=== PATIENT | female | born 1935 | race Caucasian/White ===

== ENCOUNTER → 2017-02-20 | Outpatient (CLI) | payer MEDICARE ==
[~2017-02-20] MED LIST: AMOX500T2 PO; ASPI81TA82 PO; CHOL4POW4 PO; CITRTAB7 PO; ESTR1TAB PO; LEVO125T3 PO; MULT1TAB46 PO; SOMA250T PO; SUMA50 PO
[2017-02-20 09:46] LABS: ANION GAP 5 MEQ/L (5-15); AST (GOT) 25 U/L (15-37); BICARBONATE 30.9 MEQ/L (21.0-32.0); BLOOD UREA NITROGEN 19 MG/DL (7-18); CHLORIDE 104 MEQ/L (98-107); GLOMERULAR FILTRATION RATE 51 ML/MIN (>89); GLUCOSE,FASTING 79 MG/DL (74-99); POTASSIUM 4.3 MEQ/L (3.5-5.1); SODIUM (NA) 140 MEQ/L (136-145)
[2017-02-20 09:59] LABS: ALKALINE PHOSPHATASE 83 U/L (45-117); ALT (GPT) 37 U/L (10-53); HDL CHOLESTEROL 54.7 MG/DL (40.0-60.0); LDL CHOLESTEROL 72 MG/DL (0-99); TOTAL BILIRUBIN ADULT 0.7 MG/DL (0.2-1.0)
== END ==
LOC: PLAB 06:38
PROVIDERS: ATTEND Family Medicine
DX: N18.2 Chronic kidney disease, stage 2 (mild) (principal); E03.9 Hypothyroidism, unspecified; E78.1 Pure hyperglyceridemia
CPT/HCPCS: 36415; 80053; 80061; 84443

== ENCOUNTER → 2017-06-16 | Outpatient (CLI) | payer MEDICARE ==
[~2017-06-16] MED LIST changes: +ASPI1TAB57 PO; +CALTCHW5 PO; +CICL0.773 TOPICAL; +ESTR1 PO; +HYDR-3580 PO; +LEVO.125 PO; +PENL8SOL TOPICAL; +SENITAB2 PO; +SUMA100T2 PO; +[UNRECOGNIZED DRUG - CODE] TOPICAL
[2017-06-16 10:12] LABS: HEMATOCRIT 39.5 % (35.0-46.0); HEMOGLOBIN 13.6 GM/DL (11.6-15.3); MEAN CELL VOLUME 88.2 FL (80.0-100.0); MEAN CORPUSCULAR HEMOGLOBIN 30.3 PG (27.0-34.0); MEAN CORPUSCULAR HGB CONC 34.3 % (32.0-36.0); MEAN PLATELET VOLUME 9.8 FL (7.0-11.0); PLATELET COUNT 272 TH/MM3 (150-450); RED BLOOD COUNT 4.48 MIL/MM3 (4.00-5.30); RED CELL DISTRIBUTION WIDTH 16.1 % (11.6-17.2); WHITE BLOOD COUNT 12.7 TH/MM3 (4.0-11.0)
[2017-06-16 10:22] LABS: PROTHROMBIN TIME - PATIENT 10.2 SEC (9.8-11.6)
[2017-06-16 10:49] LABS: CALCIUM 9.1 MG/DL (8.5-10.1); CREATININE 0.94 MG/DL (0.50-1.00)
[2017-06-16 11:47] LABS: BACTERIA, URINE RARE /hpf; BILIRUBIN, URINE NEG (NEG); BLOOD, URINE NEG (NEG); GLUCOSE,URINE NEG (NEG); KETONE, URINE NEG (NEG); NITRITE,URINE NEG (NEG); PH, URINE 6.5 (5.0-8.5); SQUAMOUS EPITHELIAL CELL URINE 1 /hpf (0-5); TRANSITIONAL EPI CELLS, URINE <1 /hpf; URINE LEUKOCYTE ESTERASE NEG (NEG)
[2017-06-16 11:48] LABS: URINE COLOR STRAW (YELLW/STRAW)
--- NOTE | 2017-06-18 08:16 | EKG ---
Date Performed: 06/16/2017 Time Performed: 09:47:04 PTAGE: 81 years EKG: Sinus rhythm WITH FREQUENT SUPRAVENTRICULAR PREMATURE COMPLEXES ABNORMAL RHYTHM ECG PREVIOUS TRACING : 01/15/2008 07.42 Since previous tracing, PACs are new. DOCTOR: Julio Márquez Interpretating Date/Time 06/18/2017 08:15:49
== END ==
LOC: CPRE 08:43
PROVIDERS: ATTEND Orthopaedic Surgery
DX: Z01.812 Encounter for preprocedural laboratory examination (principal); Z01.810 Encounter for preprocedural cardiovascular examination; M79.609 Pain in unspecified limb; M16.12 Unilateral primary osteoarthritis, left hip; I10 Essential (primary) hypertension; R82.99 Other abnormal findings in urine
CPT/HCPCS: 36415; 80048; 81001; 85027; 85610; 85730; 87086; 93005

== ENCOUNTER 2017-06-26 07:14 | Inpatient (IN) | payer MEDICARE ==
[~2017-06-26] VITALS: Ht 167.6 cm; Wt 69.9 kg
[~2017-06-26 07:14] MED LIST changes: -AMOX500T2 PO; -ASPI81TA82 PO; -CITRTAB7 PO; -ESTR1TAB PO; -HYDR-3580 PO; -LEVO125T3 PO; -MULT1TAB46 PO; -SOMA250T PO; -SUMA50 PO
[2017-06-26] MEDS ORDERED: CHLORHEXIDINE GLUCONATE 4% SOLN 120 ML BTL TOPICAL SCH (07:45)
[2017-06-26] MEDS ORDERED: SODIUM CHLORID 0.9% 500 ML IV PRN (07:45)
[2017-06-26] MEDS ORDERED: LACTATED RINGER'S 1000 ML IV PRN (07:45)
[2017-06-26] MEDS ORDERED: CHLORHEXIDINE GLUCONATE 2 % 1 PACK (2 CLOTHS) TOPICAL PRN (07:45)
[2017-06-26] MEDS ORDERED: ceFAZolin 2 GM PREMIX 50 ML IV SCH (07:45)
[2017-06-26] MEDS ORDERED: POVIDONE IODINE 5% (ANTISEPSIS KIT) 4 APPLICATIONS EACH NARE PRN (07:45)
[2017-06-26] MEDS ORDERED: METOPROLOL TARTRATE 25 MG TAB PO PRN (07:45)
[2017-06-26] MEDS ORDERED: SODIUM CHLORIDE 0.9% IV SCH ×2 (09:00→12:00)
[2017-06-26] MEDS ORDERED: EXPAREL PERI-ARTICULAR INJECTION (TOTAL VOL. 60 ML) P-ARTICULR SCH ×2 (09:00)
[2017-06-26] MEDS ORDERED: TRANEXAMIC ACID IV SCH ×2 (09:00→12:00)
[2017-06-26] MEDS ORDERED: GENTAMICIN SULFATE 80 MG/2 ML VIAL ONE (09:08)
[2017-06-26] MEDS ORDERED: ACETAMINOPHEN 1000 MG/100 ML 100 ML IV ONE (09:35)
[2017-06-26] MEDS ORDERED: BUPIVACAINE PF 0.75% DEX-WATER INJ 2 ML AMP ONE (09:36)
[2017-06-26] MEDS ORDERED: PROPOFOL 500 MG/50 ML INJ 100 ML ONE (09:36)
[2017-06-26] MEDS ORDERED: FAMOTIDINE 20 MG/2 ML VIAL ONE (09:36)
--- NOTE | 2017-06-26 09:41 | HHI.FF ---
Face to Face Verification Diagnosis: (1) Status post total left knee replacement Physical Therapy Gait training Hip: Total hip, Protocol: Left, Posterior hip precautions, Progress to weight bearing Canvas Knee Splint: When in bed & 2 pillows btw thighs Left LE Weight Bearing: WB as tolerated Left LE Range of Motion: Active ROM Nursing Nursing: Dressing changes Dressing Changes: Daily dressing change (Do not remove Dermabond Prineo.), Coverderm/Primapore I have seen patient Cecy Mcqueen on 06/26/17. My clinical findings support the need for the requested home health care services because: Ltd mobility - disease progression Limited ability to care for self High risk of falls I certify that my clinical findings support that this patient is homebound because: Post-op weakness Unsteady gait/balance Unsafe to leave home unassisted Keisha Sun MD (Charles) Jun 26, 2017 09:41
[2017-06-26] MEDS ORDERED: ECASA81 PO (09:44)
[2017-06-26] MEDS ORDERED: TRANEXAMIC ACID INJ 0 MG in SODIUM CHLORIDE 0.9% INJ 100 ML IV SCH (09:45)
[2017-06-26] MEDS ORDERED: MAGNESIUM HYDROXIDE SUSP 30 ML CUP PO PRN (09:45)
[2017-06-26] MEDS ORDERED: CICLOPIROX TOPICAL PRN (09:45)
[2017-06-26] MEDS ORDERED: ONDANSETRON HCL 4 MG/2 ML VIAL IVP PRN (09:45)
[2017-06-26] MEDS ORDERED: ACETAMINOPHEN/HYDROcodone 325 MG/7.5 MG TAB PO PRN (09:45)
[2017-06-26] MEDS ORDERED: BISACODYL 10 MG SUPP RECTAL PRN (09:45)
[2017-06-26] MEDS ORDERED: ZOLPIDEM TARTRATE 5 MG TAB PO PRN (09:45)
[2017-06-26] MEDS ORDERED: SUMAtriptan SUCCINATE 50 MG TAB PO PRN (09:45)
[2017-06-26] MEDS ORDERED: cloNIDine HCL 0.1 MG TAB PO PRN ×2 (10:15→16:45)
[2017-06-26] MEDS ORDERED: PROPOFOL 200 MG/20 ML AMP IV ONE (12:00)
[2017-06-26] MEDS ORDERED: ONDANSETRON HCL 4 MG/2 ML VIAL IV ONE (12:00)
[2017-06-26] MEDS ORDERED: LIDOCAINE HCL 1% PF 5 ML SYRINGE OTHER ONE (12:00)
[2017-06-26] MEDS ORDERED: DEXAMETHASONE SOD PHOS 4 MG/ML VIAL IV ONE (12:00)
[2017-06-26] MEDS ORDERED: LACTATED RINGER'S 1000 ML INJ 1,000 ML IV ONE (12:00)
[2017-06-26] MEDS ORDERED: ePHEDrine/NS 25 MG/5 ML SYRINGE IV ONE (12:00)
[2017-06-26] MEDS ORDERED: PHENYLEPH/NS 1000 MCG/10 ML SYR IV ONE (12:00)
[2017-06-26] MEDS ORDERED: HYDR-3580 PO (12:58)
--- NOTE | 2017-06-26 13:09 | PD.OP ---
Operative Report Date of Surgery: Jun 26, 2017 Preoperative Diagnosis: (1) Primary osteoarthritis of left hip Postoperative Diagnosis: (1) Primary osteoarthritis of left hip Procedure: Left total hip arthroplasty using Novato prosthesis. Anesthesia: Spinal with supplemental local with bupivacaine liposomal. Surgeon: Dorian Sun MD Dry Primer Powder Blender(s): Kendra Pillai MD Operation and Findings: Indications and Findings: This 81-year-old woman has 3-4 years of left hip pain that is progressively worsening to the point that her ambulation tolerance is 1/ 4 mile. The hip pain will awaken her at night. She has pain on motion. This has not responded to activity modification, exercise, ambulatory aids, nonsteroidal anti-inflammatories or analgesics. Physical findings showed limited range of motion due to tenderness in the hip. She has an antalgic gait. X-rays show loss of articular cartilage to bone on bone in the depths of the acetabulum with degenerative cysts and osteophytes. Operative findings showed severe arthritis in the left hip with loss of articular cartilage and [id number]-[id number], small cyst and some osteophytes. The prosthesis used as a Novato prosthesis with the acetabulum being a Tritanium cluster shell size 52 mm outer diameter with a 36 mm inner diameter liner of X3 polyethylene with a 0 lip. A single screw was used. The femoral component was an Accolade 2 femoral stem size 4 x 132 with a Biolox Delta femoral head size 36 mm outer diameter with a -5 mm neck length. The patient was brought to the clean air operating suite and a spinal anesthetic was administered. The patient was then positioned into a lateral position with the left hip up on a [employer] lateral positioner. The hip and lower extremity were then prepped with alcohol, Hibiclens and ChloraPrep and draped in the usual manner with the hip draped free. Patient received prophylactic antibiotics preoperatively. The patient also received tranexamic acid preoperatively. An appropriate timeout procedure was carried out. An incision was then made from the midportion of the greater trochanter proximally and posteriorly paralleling the fibers of the gluteus alejandra. The incision was deepened through subcutaneous tissues down to the fascia zuri and gluteus fascia. The gluteus fascia was then split longitudinally in line with its fibers up to the upper portion of the fascia zuri. With wound towels in place, the Charnley retractor was inserted. The sciatic nerve was identified and protected throughout the procedure. Dissection was then carried down to the interval between the gluteus minimus and the piriformis. A retractor was inserted. The piriformis and obturator conjoined tendon was released from the greater trochanter and reflected off the capsule. A capsulotomy was made longitudinally along the femoral neck to the base of the femoral neck and then curved distally along the posterior aspect of the greater trochanter. The hip was then internally rotated. Further release of the external rotators was carried out exposing the hip. The hip was then dislocated. The femoral neck was transected at the appropriate level using the oscillating saw placement of appropriate retractors. The femoral head was then removed. Preparation of the femur was initiated with a box osteotome followed by a curet to identify the medullary canal. Broaching was then initiated with the size 0 broach and went and 1 size increments up to size 4. The broach handle was removed. The femoral neck was then trimmed with a calcar planar. Attention was then directed to the acetabulum. Soft tissues were debrided from the acetabulum. Retractors were placed about the acetabulum. Reaming was then initiated with the 43 millimeter reamer and went in 1 mm increments up to the 51 millimeter diameter reamer. A trial reduction with the 50 to millimeter trial prosthesis was carried out. When this was deemed to be appropriate, the trial prosthesis was removed. The acetabulum was then irrigated and cleaned. The actual prosthesis as noted above was then impacted into place and seated appropriately. Drill holes were then made and sounded. Appropriate sized screws were then inserted to stabilize the acetabulum further. The liner as noted above was then inserted into the acetabular shell and impacted into place. Osteophytes were trimmed from the acetabulum. Local anesthetic was then administered throughout the area of the acetabulum and anterior aspect of the femur. The trial neck was then placed on the broach for the above-noted prosthesis. The femoral head trial was placed onto the femoral neck with the external diameter of the head being 36 millimeters and the neck length being -5 millimeters. A trial reduction was then carried out. The stability, leg length and motion were excellent. There was no pistoning. The trial prosthesis was removed. Re-broaching of the femur was carried out to improve the mobility and stability. The broach was removed. The femoral component was then impacted into the medullary canal of the femur after irrigation and suctioning. When this was appropriately seated a trial reduction was again carried out with the trial prosthesis. Again, there was no pistoning. The leg length was appropriate. The stability and motion were excellent. The trial prosthesis was then removed. After cleaning and drying the trunion of the femoral component, the above-noted femoral head was impacted onto the trunnion. The hip was then reduced. The stability and mobility were again checked along with leg lengths as noted above. The hip was then positioned appropriately and closure commenced after the remainder of the local anesthetic was injected throughout the hip. The external rotators and capsule were then repaired with #1 Vicryl interrupted transosseous sutures with a Krakw technique to reattach the external rotators and capsule to the posterior aspect of the greater trochanter. The capsule itself on the superior aspect was closed with #1 Vicryl interrupted [id number]-to-[id number] sutures. The sciatic nerve was again inspected. The fascia zuri and gluteus fascia were then repaired with #1 Vicryl interrupted [id number]-[id number] sutures. The subcutaneous tissues were closed with 2-0 Vicryl interrupted simple sutures with buried knots. The skin was closed with a continuous subcuticular closure of 4-0 Monocryl. The wound was then approximated with Dermabond Prineo. A dry dressing was applied to the hip. A knee immobilizer was applied to the leg. The patient was then transferred from the operating room to the recovery room in satisfactory condition having tolerated the procedure well. Counts are correct. Specimens: None. Estimated blood loss: 200 mL Keisha Sun MD (Charles) Jun 26, 2017 13:08
[2017-06-26] MEDS ORDERED: DO NOT ADM ANY ANTICOAGULANT DRUGS PRN (13:23)
[2017-06-26] MEDS ORDERED: MORPHINE SULFATE 4 MG/ML INJ IV PUSH PRN (13:30)
[2017-06-26] MEDS ORDERED: Post-op Orders (for Pharmacy) XX ONE (13:30)
[2017-06-26] MEDS ORDERED: MIDAZOLAM HCL 2 MG/2 ML VIAL ONE (13:33)
[2017-06-26] MEDS: LACTATED RINGER'S 1000 ML INJ 1,000 ML IV SCH ×2 (14:00→22:03)
[2017-06-26] MEDS ORDERED: *morphine SULFATE 4 MG/ML PERIprocedure ONLY ONE (14:47)
[2017-06-26] MEDS: KETOROLAC TROMETHAMINE 30 MG/ML (IVP) VIAL IVP SCH ×2 (14:52→20:59)
--- NOTE | 2017-06-26 15:30 | RADRPT ---
EXAM DATE/TIME: 06/26/2017 14:38 [place] COMPARISON: No previous studies available for comparison. INDICATIONS : Post op left hip surgery. MEDICAL HISTORY : None. SURGICAL HISTORY : Left hip replacement. ENCOUNTER: Initial ACUITY: 1 day PAIN SCORE: 0/10 LOCATION: Left hip. FINDINGS: A two view examination of the left hip was performed. Left knee arthroplasty. Postsurgical changes. N o fracture or hardware loosening. The acetabulum is grossly intact. CONCLUSION: Left knee arthroplasty. Bo Conner MD on June 26, 2017 at 15:27 Board Certified Radiologist. This report was verified electronically.
--- NOTE | 2017-06-26 16:39 | PD.CONS ---
HPI Service [facility] Consult Requested By DR GARG Reason for Consult MEDICAL MANAGEMENT Primary Care Physician Katie Vaughan MD Diagnoses: (1) Hypothyroidism (2) Migraine (3) Primary osteoarthritis of left hip History of Present Illness Patient is a 81-year-old female, Who underwent a left total hip arthroplasty by Dr. Garg today for severe left hip osteoarthritis. We have been asked to consult regarding medical management. Patient's past medical history significant for hypothyroidism, migraines, and osteoarthritis. We will follow for any other issues that may arise We will get a.m. labs and follow throughout the admission Review of Systems Constitutional: DENIES: Diaphoretic episodes, Fatigue, Fever, Weight gain, Weight loss, Chills, Dizziness, Change in appetite, Night Sweats Endocrine: DENIES: Abnorml menstrual pattern, Heat/cold intolerance, Polydipsia , Polyuria, Polyphagia Eyes: DENIES: Blurred vision, Diplopia, Eye inflammation, Eye pain, Vision loss , Photosensitivity, Double Vision Ears, nose, mouth, throat: DENIES: Tinnitus, Hearing loss, Vertigo, Nasal discharge, Oral lesions, Throat pain, Hoarseness, Ear Pain, Running Nose, Epistaxis, Sinus Pain, Odynophagia Respiratory: DENIES: Apneas, Cough, Snoring, Wheezing, Hemoptysis, Sputum production, Shortness of breath Cardiovascular: DENIES: Chest pain, Palpitations, Syncope, Dyspnea on Exertion , PND, Lower Extremity Edema, Orthopnea, Claudication Gastrointestinal: DENIES: Abdominal pain, Black stools, Bloody stools, Constipation, Diarrhea, Nausea, Vomiting, Difficulty Swallowing Genitourinary: DENIES: Abnormal vaginal bleeding, Dysmenorrhea, Dyspareunia, Sexual dysfunction, Urinary frequency Musculoskeletal: COMPLAINS OF: Joint pain, Joint Swelling, DENIES: Muscle aches , Stiffness, Back pain, Neck pain Integumentary: DENIES: Abnormal pigmentation, Pruritus, Rash, Nail changes, Breast masses, Breast skin changes, Nipple discharge Hematologic/lymphatic: DENIES: Bruising, Lymphadenopathy Immunologic/allergic: DENIES: Eczema, Urticaria Neurologic: COMPLAINS OF: Abnormal gait, DENIES: Headache, Localized weakness, Paresthesias, Seizures, Speech Problems, Tremor, Poor Balance Psychiatric: DENIES: Anxiety, Confusion, Mood changes, Depression, Hallucinations, Agitation, Suicidal Ideation Except as stated in HPI: all other systems reviewed are Neg Past Family Social History Allergies: Coded Allergies: benzonatate (Verified Allergy, Severe, MIGRAINES, 06/16/17) ciprofloxacin (Unverified Allergy, Severe, GI issues, 06/16/17) dextromethorphan (Verified Allergy, Severe, MIGRAINES, 06/16/17) red (food color) (Verified Allergy, Severe, MIGRAINES, 06/16/17) scopolamine (Verified Allergy, Severe, EDEMA, 06/16/17) adhesive tape (Verified Allergy, Unknown, Skin removed with tape, 06/26/17) cefuroxime (Verified Adverse Reaction, Severe, Diarrhea, 06/16/17) Past Medical History Hypothyroidism Headaches Migraines History of C. difficile toxin colitis Osteoarthritis history of tobacco in the past Past Surgical History Bilateral cataract surgery Tonsillectomy Hysterectomy Colonoscopy with polyps removal Rotator cuff repair bilaterally Reported Medications Reported Meds & Active Scripts Active Hydrocodone-Acetamin 7.5-325 (Hydrocodone/Acetaminophen) 7.5 Mg-325 Mg Tablet 1 Tab PO Q4H PRN Reported [place] (Nail Lacquer) Topical (Ciclopirox (Nail Lacquer) Topical) 8% Soln 1 Applic TOPICAL HS PRN Caltrate 600+D Chew (Calcium Carbonate-Vitamin D Chew) 600-400 Mg-Unit Chew 1 Tab PO DAILY Senior Tabs (Multiple Vitamins W/ Minerals) 0.4 Mg-300 Mcg-250 Mcg Tab 1 Tab PO DAILY Aspirin 81 (Aspirin) 81 Mg Tabdr 81 Mg PO DAILY Sumatriptan (Sumatriptan Succinate) 100 Mg Tab 100 Mg PO ONCE PRN If a satisfactory response has not been obtained at 2 hours, a second dose may be administered Cholestyramine 4 Gm/Pkt Powd 4 Gm PO DAILY 1 packet contains 4 grams of cholestyramine. Estrace (Estradiol) 1 Mg Tab 1 Mg PO DAILY Synthroid (Levothyroxine Sodium) 125 Mcg Tab 125 Mcg PO DAILY Active Ordered Medications Current Medications Lactated Ringer's 1,000 ml @ 30 mls/hr Q24H PRN IV SEE LABEL COMMENTS; Start at 07:45; Stop 06/26/17 at 11:39; Status DC Sodium Chloride 500 ml @ 30 mls/hr [id number] PRN IV SEE LABEL COMMENTS; Start at 07:45; Stop 06/26/17 at 11:39; Status DC Metoprolol Tartrate (Lopressor) 25 mg [employer]OR [employer] PRN PO SEE LABEL COMMENTS; Start 06/26/17 at 07:45; Stop 06/29/17 at 07:44 Povidone Iodine (Betadine 5% Antisepsis Kit) 1 applic [employer] PRN EACH NARE SEE LABEL COMMENTS; Start 06/26/17 at 07:45; Stop 06/29/17 at 07:44 Chlorhexidine Gluconate (Chlorhexidine 2% Cloth) 3 pack [employer] PRN TOPICAL SEE LABEL COMMENTS; Start 06/26/17 at 07:45; Stop 06/29/17 at 07:44 Chlorhexidine Gluconate (Hibiclens 4% Top Soln) 1 applic ONCE TOPICAL ; Start at 07:45; Stop 06/29/17 at 07:44 Cefazolin Sodium/ Dextrose 50 ml @ 100 mls/hr SUPER[employer]OR [employer] METAL[employer]ING IV Last administered on 06/26/17at 10:38; Start 06/26/17 at 07:45; Stop 06/29/17 at 07:44 Tranexamic Acid 699 mg/Sodium Chloride 106.99 ml @ 200 mls/ hr ONCE IV Last administered on 06/26/17at 10:33; Start 06/26/17 at 09:00; Stop 06/26/17 at 15:00 ; Status DC Tranexamic Acid 699 mg/Sodium Chloride 106.99 ml @ 200 mls/ hr ONCE IV Last administered on 06/26/17at 13:51; Start 06/26/17 at 12:00; Stop 06/26/17 at 18:00 Bupivacaine Liposome 20 ml/ Sodium Chloride 60 ml @ 120 mls/hr ONCE P-ARTICULR Last administered on 06/26/17at 10:57; Start 06/26/17 at 09:00; Stop 06/26/17 at 15:00; Status DC Gentamicin Sulfate (Gentamicin Inj) 240 mg STK-MED ONCE .ROUTE Last administered on 06/26/17at 10:57; Start 06/26/17 at 09:08; Stop 06/26/17 at 09:09 ; Status DC Lactated Ringer's 1,000 ml @ 80 mls/hr [id number] IV Last administered on at 14:00; Start 06/26/17 at 09:33 Cefazolin Sodium 1000 mg/Sodium Chloride 100 ml @ 200 mls/hr Q6H IV ; Start at 17:00; Stop 06/27/17 at 05:29 Miscellaneous Information (Post-op Orders (for Pharmacy)) STAT ONCE XX ; Start 06/26/17 at 13:30; Stop 06/26/17 at 13:31; Status DC Morphine Sulfate (Morphine Inj) 4 mg Q3H PRN IV PUSH BREAKTHROUGH PAIN; Start 06/26/17 at 13:30 Acetaminophen/ Hydrocodone Bitart ([place] 7.5-325 Mg) 1 tab Q4H PRN PO PAIN LESS THAN 5 ON SCALE; Start 06/26/17 at 09:45 Acetaminophen/ Hydrocodone Bitart ([place] 7.5-325 Mg) 2 tab Q4H PRN PO PAIN SCALE 5 TO 10; Start 06/26/17 at 09:45 Ketorolac Tromethamine (Toradol Inj) 15 mg Q6H IVP Last administered on at 14:52; Start 06/26/17 at 14:00; Stop 06/28/17 at 08:01 Tranexamic Acid / Sodium Chloride 100 ml @ 200 mls/hr UNSCH IV ; Start at 09:45; Stop 06/26/17 at 11:52; Status DC Ondansetron HCl (Zofran Inj) 4 mg Q6H PRN IVP NAUSEA OR VOMITING; Start at 09:45 Zolpidem Tartrate (Ambien) 5 mg HS PRN PO SLEEP; Start 06/26/17 at 09:45 Bisacodyl (Dulcolax Supp) 10 mg DAILY PRN RECTAL SEVERE CONSTIPATION; Start at 09:45 Magnesium Hydroxide (Milk Of Magnesia Liq) 30 ml DAILY PRN PO MILD TO MODERATE CONSTIPATION; Start 06/26/17 at 09:45 Aspirin (Ecotrin Ec) 81 mg BID PO ; Start 06/27/17 at 12:30 Acetaminophen 100 ml @ As Directed STK-MED ONCE IV ; Start 06/26/17 at 09:35; Stop 06/26/17 at 09:36; Status DC Propofol 100 ml @ As Directed STK-MED ONCE .ROUTE ; Start 06/26/17 at 09:36; Stop 06/26/17 at 09:37; Status DC Bupivacaine HCl/ Dextrose (Marcaine Spinal Inj) 2 ml STK-MED ONCE .ROUTE ; Start 06/26/17 at 09:36; Stop 06/26/17 at 09:37; Status DC Famotidine (Pepcid Inj) 20 mg STK-MED ONCE .ROUTE ; Start 06/26/17 at 09:36; Stop 06/26/17 at 09:37; Status DC Cholestyramine Resin (Questran 4 Gm Pkt) 4 gm DAILY PO ; Start 06/27/17 at 09:00 Estradiol (Estradiol) 1 mg DAILY PO ; Start 06/27/17 at 09:00 Levothyroxine Sodium (Synthroid) 125 mcg DAILY@0600 PO ; Start 06/27/17 at 06:00 Sumatriptan Succinate (Imitrex) 100 mg ONCE PRN PO MIGRAINE HEADACHE; Start at 09:45; Stop 06/30/17 at 09:44 Calcium/Vitamin D (Oscal-D 250-125) 500 mg DAILY PO ; Start 06/27/17 at 09:00 Non-Formulary Medication 1 applic HS PRN TOPICAL FUN; Start 06/26/17 at 09:45; Stop 06/26/17 at 13:22; Status DC Multivitamins/ Minerals Therapeutic (Theragran M Tab) 1 tab DAILY PO ; Start at 09:00 Clonidine (Catapres) 0.1 mg Q4H PRN PO SBP>160, DBP>90; Start 06/26/17 at 10:15 Midazolam HCl (Versed Inj) 2 mg STK-MED ONCE .ROUTE ; Start 06/26/17 at 13:33; Stop 06/26/17 at 13:34; Status DC Fentanyl Citrate (fentaNYL INJ) 100 mcg STK-MED ONCE .ROUTE ; Start 06/26/17 at 13:33; Stop 06/26/17 at 13:34; Status DC Miscellaneous Information ALL NURSING DEPARTME... UNSCH PRN .XX SEE LABEL COMMENTS; Start 06/26/17 at 13:23; Stop 06/27/17 at 13:22 Morphine Sulfate (*morphine INJ PERIprocedure ONLY) 4 mg STK-MED ONCE .ROUTE Last administered on 06/26/17at 14:47; Start 06/26/17 at 14:47; Stop 06/26/17 at 14:48; Status DC Family History Hypertension and thyroid disorders Social History Denies any tobacco currently denies any illicits denies any alcohol Physical Exam Vital Signs Vital Signs Date Time Temp Pulse Resp B/P (MAP) Pulse Ox O2 Delivery O2 Flow Rate FiO2 06/26/17 14:52 15 06/26/17 13:23 96.2 96 12 122/57 (78) 100 Nasal Cannula 4 06/26/17 08:00 98.1 95 16 152/83 (106) 98 Physical Exam GENERAL: This is a well-nourished, well-developed patient, in no apparent distress. SKIN: No rashes, ecchymoses or lesions. Cool and dry. HEAD: Atraumatic. Normocephalic. No temporal or scalp tenderness. EYES: Pupils equal round and reactive. Extraocular motions intact. No scleral icterus. No injection or drainage. ENT: Nose without bleeding, purulent drainage or septal hematoma. Throat without erythema, tonsillar hypertrophy or exudate. Uvula midline. Airway patent. NECK: Trachea midline. No JVD or lymphadenopathy. Supple, nontender, no meningeal signs. CARDIOVASCULAR: Regular rate and rhythm without murmurs, gallops, or rubs. S1- S2 no S3 or S4 RESPIRATORY: Clear to auscultation. Breath sounds equal bilaterally. No wheezes , rales, or rhonchi. GASTROINTESTINAL: Abdomen soft, non-tender, nondistended. No hepato-splenomegaly , or palpable masses. No guarding. MUSCULOSKELETAL: Extremities without clubbing, cyanosis, or edema. No joint tenderness, effusion, or edema noted. No calf tenderness. Negative Homans sign bilaterally. Left hip is dressed NEUROLOGICAL: Awake and alert. Cranial nerves II through XII intact. Motor and sensory grossly within normal limits. Five out of 5 muscle strength in all muscle groups. Normal speech. Insight and judgment is good Mood and behavior is appropriate Imaging Last Impressions Hip X-Ray 06/26/17 0933 Signed Impressions: Service Date/Time: Monday, June 26, 2017 14:38 - CONCLUSION: Left knee arthroplasty. Bo Conner MD Assessment and Plan Problem List: (1) Primary osteoarthritis of left hip ICD Code: M16.12 - Unilateral primary osteoarthritis, left hip (2) Hypothyroidism ICD Code: E03.9 - Hypothyroidism Status: Acute (3) Migraine ICD Code: G43.909 - Migraine Status: Acute Assessment and Plan Status post left total hip arthroplasty due to severe osteoarthritis will defer to orthopedic surgery for pain control and anticoagulation Hypothyroidism resume home medication Migraines as needed medications Osteoarthritis pain control as needed Gait instability physical therapy and occupational Hypertension continue on home meds as needed and as needed's DVT prophylaxis per orthopedic GI prophylaxis with Pepcid Code Status Full code Discussed Condition With RN and patient and family and physical therapy Good Toure DO Jun 26, 2017 16:39
[2017-06-26 20:00] VITALS: BP 142/81; PULSE 99; RESP 16; TEMP 97.6; O2SAT 98
[2017-06-27] VITALS (7 sets, daily range): BP systolic 106–140; BP diastolic 55–62; PULSE 84–98; RESP 16–18; TEMP 97.4–98; O2SAT 96–99
[2017-06-27] MEDS: KETOROLAC TROMETHAMINE 30 MG/ML (IVP) VIAL IVP SCH ×4 (02:21→20:49)
[2017-06-27] MEDS: LEVOTHYROXINE SODIUM 125 MCG TAB PO SCH (04:59)
--- NOTE | 2017-06-27 05:56 | PD.ORT.PN ---
Subjective Post Op Day #: 1 Subjective Remarks She is doing well. She has minimal complaints related to her hip at this time. She was up to the bathroom last night and had no problems getting to or from. Distance Walked 8 feet with PT. Objective Vitals Vital Signs Date Time Temp Pulse Resp B/P (MAP) Pulse Ox O2 Delivery O2 Flow Rate FiO2 06/27/17 04:22 97.4 84 17 122/60 (80) 96 06/27/17 03:06 18 06/27/17 03:06 18 06/27/17 00:12 97.6 88 18 126/60 (82) 96 06/26/17 21:48 Room Air 06/26/17 20:00 97.6 99 16 142/81 (101) 98 06/26/17 18:43 18 06/26/17 15:50 97.7 75 16 115/68 (84) 96 Room Air 06/26/17 15:45 70 16 120/65 (83) 96 Room Air 06/26/17 15:30 72 16 117/60 (79) 95 Room Air 06/26/17 15:15 74 15 115/63 (80) 95 Room Air 06/26/17 15:00 73 15 118/59 (78) 94 Room Air 06/26/17 14:52 15 06/26/17 14:45 72 15 116/55 (75) 94 Room Air 06/26/17 14:30 97.5 74 15 119/58 (78) 100 Nasal Cannula 2 06/26/17 14:15 78 15 122/60 (80) 99 Nasal Cannula 2 06/26/17 14:00 87 15 121/58 (79) 98 Nasal Cannula 2 06/26/17 13:45 96.9 88 15 120/59 (79) 97 Nasal Cannula 2 06/26/17 13:30 90 14 117/58 (77) 100 Nasal Cannula 3 06/26/17 13:23 96.2 96 12 122/57 (78) 100 Nasal Cannula 4 06/26/17 13:23 96.2 06/26/17 08:00 98.1 95 16 152/83 (106) 98 I/O 06/26/17 06/26/17 06/26/17 06/27/17 06/27/17 06/27/17 07:00 15:00 23:00 07:00 15:00 23:00 Intake Total 2406.99 ml 420 ml Output Total 200 ml Balance 2206.99 ml 420 ml Intake IV Total 2406.99 ml 420 ml Output Estimated Blood Loss 200 ml # Voids 1 0 Imaging Last 24 hours Impressions Hip X-Ray 06/26/17 0933 Signed Impressions: Service Date/Time: Monday, June 26, 2017 14:38 - CONCLUSION: Left knee arthroplasty. Bo Conner MD Objective Remarks She is resting comfortably, supine in bed. The neurovascular status is intact. The dressing is dry and intact. Assessment & Plan Ortho Post Op Day #: 1 Problem List: (1) Primary osteoarthritis of left hip ICD Codes: M16.12 - Unilateral primary osteoarthritis, left hip Status: Resolved (2) Status post total left knee replacement ICD Codes: Z96.652 - Presence of left artificial knee joint Status: Acute Plan: Continue postop care and PT. Assessment and Plan Condition: Good. Orthopedically stable. DVT prophylaxis: TEDs, aspirin, sequentials. Discharge plans: Home with home health care. An appointment was scheduled through the office. Prescriptions: [place] 7.5/325 Keisha Sun MD (Charles) Jun 27, 2017 05:56
--- NOTE | 2017-06-27 06:21 | HHI.DS ---
Discharge Summary Admission Date Jun 26, 2017 at 07:14 Discharge Date: Jun 28, 2017 Admitting Diagnosis Primary osteoarthritis, left hip. Diagnosis: (1) Primary osteoarthritis of left hip Diagnosis: Principal ICD Codes: M16.12 - Unilateral primary osteoarthritis, left hip Status: Resolved (2) Status post total left knee replacement Diagnosis: Principal ICD Codes: Z96.652 - Presence of left artificial knee joint Status: Acute Procedures Left total hip arthroplasty with a [place] prosthesis on 06/26/2017 Brief History This is a 81 year old female patient has had long-standing arthritis in her left hip which has been nonresponsive to conservative measures. She had an antalgic gait and tenderness on motion. X-ray showed severe osteoarthritis in the hip. Imaging Last 72 hours Impressions Hip X-Ray 06/26/17 0933 Signed Impressions: Service Date/Time: Monday, June 26, 2017 14:38 - CONCLUSION: Left knee arthroplasty. Bo Conner MD PE at Discharge She is out of bed walking in the room with a walker. Her gait pattern is appropriate. She transfers to the chair appropriately. The neurovascular status is intact. The dressing is dry and intact. Hospital Course The patient was admitted as noted above. The above noted operative procedure was carried out that day. Preoperatively prophylactic antibiotics were administered Ancef according to protocol. These were continued postoperatively. The patient also received tranexamic acid to help with hemostasis according to protocol. In the postanesthesia care unit mechanical methods of DVT prophylaxis in the form of CRISTIAN stockings and sequentials were initiated. Physical therapy was initiated on the day of surgery. She walked 8 feet. On postoperative day #1 physical therapy continued. She walked 25 feet. DVT prophylaxis with aspirin 81 mg twice daily was initiated at this time. The patient continued physical therapy throughout the hospitalization. The distance walked and range of motion improved throughout the hospitalization. The patient was discharged on postoperative day 1 with the disposition being to home with home health care. An appointment for follow-up was made prior to admission. Pt Condition on Discharge: Good Discharge Disposition: Disch w/ Home Health Serv Discharge Instructions Diet Instructions: As Tolerated, No Restrictions Activities You Can Perform: Full Weight Bearing, Shower Only-No Bath Activities to Avoid: Lifting/Bending, Strenuous Activity, Bathing, Driving Follow up Referrals: Orthopedics with Keisha Sun MD ([place]) New Medications: Aspirin (Aspirin DR) 81 Mg Tabdr 81 MG PO BID for Prevent Blood Clot for 30 Days, #60 TAB Hydrocodone/Acetaminophen (Hydrocodone-Acetamin 7.5-325) 7.5 Mg-325 Mg Tablet 1 TAB PO Q4H PRN for PAIN SCALE 1 TO 10, #30 TAB Continued Medications: Calcium Carbonate-Vitamin D Chew (Caltrate 600+D Chew) 600-400 Mg-Unit Chew 1 TAB PO DAILY for Nutritional Supplement, EA 0 Refills Cholestyramine (Cholestyramine) 4 Gm/Pkt Powd 4 GM PO DAILY for Dyslipidemia, #1 BOX 0 Refills 1 packet contains 4 grams of cholestyramine. Ciclopirox (Nail Lacquer) Topical ([place] (Nail Lacquer) Topical) 8% Soln 1 APPLIC TOPICAL HS PRN for FUN, #1 BOTTLE 0 Refills Estradiol (Estrace) 1 Mg Tab 1 MG PO DAILY for Estrogen Supplements, #30 TAB 0 Refills Levothyroxine (Synthroid) 125 Mcg Tab 125 MCG PO DAILY for Thyroid, #30 TAB 0 Refills Multiple Vitamins W/ Minerals (Senior Tabs) 0.4 Mg-300 Mcg-250 Mcg Tab 1 TAB PO DAILY Sumatriptan (Sumatriptan) 100 Mg Tab 100 MG PO ONCE PRN for MIGRAINE HEADACHE, TAB 0 Refills If a satisfactory response has not been obtained at 2 hours, a second dose may be administered Discontinued Medications: Aspirin (Aspirin 81) 81 Mg Tabdr 81 MG PO DAILY, TAB 0 Refills Keisha Sun MD ([place]) Jun 27, 2017 06:21
[2017-06-27 07:07] LABS: BASOPHIL # 0.1 TH/MM3 (0-0.2); BASOPHIL % 0.3 % (0.0-2.0); EOSINOPHIL # 0.1 TH/MM3 (0-0.4); EOSINOPHIL % 0.5 % (0.0-4.0); HEMATOCRIT 33.1 % (35.0-46.0); HEMOGLOBIN 11.5 GM/DL (11.6-15.3); LYMPH % 8.8 % (9.0-44.0); LYMPHOCYTE # 1.9 TH/MM3 (1.0-4.8); MEAN CELL VOLUME 88.6 FL (80.0-100.0); MEAN CORPUSCULAR HEMOGLOBIN 30.7 PG (27.0-34.0); MEAN CORPUSCULAR HGB CONC 34.7 % (32.0-36.0); MEAN PLATELET VOLUME 9.9 FL (7.0-11.0); MONO % 9.7 % (0.0-8.0); MONOCYTE # 2.1 TH/MM3 (0-0.9); NEUT % 80.7 % (16.0-70.0); PLATELET COUNT 223 TH/MM3 (150-450); RED BLOOD COUNT 3.74 MIL/MM3 (4.00-5.30); WHITE BLOOD COUNT 21.1 TH/MM3 (4.0-11.0)
[2017-06-27 07:28] LABS: ALBUMIN 3.2 GM/DL (3.4-5.0); ALT (GPT) 34 U/L (10-53); AST (GOT) 30 U/L (15-37); BICARBONATE 28.5 MEQ/L (21.0-32.0); BLOOD UREA NITROGEN 16 MG/DL (7-18); CALCIUM 8.8 MG/DL (8.5-10.1); CHLORIDE 107 MEQ/L (98-107); CREATININE 0.99 MG/DL (0.50-1.00); GLOMERULAR FILTRATION RATE 54 ML/MIN (>89); GLUCOSE,RANDOM 101 MG/DL (74-106); MAGNESIUM 2.2 MG/DL (1.5-2.5); PHOSPHORUS 3.2 MG/DL (2.5-4.9); SODIUM (NA) 141 MEQ/L (136-145)
[2017-06-27 07:37] LABS: ALKALINE PHOSPHATASE 75 U/L (45-117); TOTAL BILIRUBIN ADULT 0.5 MG/DL (0.2-1.0); TOTAL PROTEIN 6.5 GM/DL (6.4-8.2)
[2017-06-27] MEDS: CALCIUM/VITAMIN D 250 MG/125 U TAB PO SCH (08:19)
[2017-06-27] MEDS: ESTRADIOL 1 MG TAB PO SCH (08:19)
[2017-06-27] MEDS: MULTIVITAMINS/MINERALS THERAPEUTIC TAB PO SCH (08:19)
[2017-06-27] MEDS: CHOLESTYRAMINE 4 GM PACKET PO SCH (08:20)
[2017-06-27 08:30] LABS: ACANTHOCYTES OCC (NORMAL)
[2017-06-27] MEDS: LACTATED RINGER'S 1000 ML INJ 1,000 ML IV SCH ×2 (10:33→21:50)
[2017-06-27 10:56] LABS: HEMOGLOBIN A1C 4.9 % (4.3-6.0)
[2017-06-27] MEDS: ACETAMINOPHEN/HYDROcodone 325 MG/7.5 MG TAB PO PRN ×2 (10:59→17:32)
--- NOTE | 2017-06-27 12:24 | HHI.PR ---
Subjective Remarks Patient is a 81-year-old female, Who underwent a left total hip arthroplasty by Dr. Sun today for severe left hip osteoarthritis. We have been asked to consult regarding medical management. Patient's past medical history significant for hypothyroidism, migraines, and osteoarthritis. We will follow for any other issues that may arise We will get a.m. labs and follow throughout the admission 4-17 NEW NEW COMPLAINTS SOME PAIN IN LEFT HIP AREA NO SOB, NO CHEST PAIN NO PALPITATIONS DW RN AND CM AND PATIENT Objective Vitals Vital Signs Date Time Temp Pulse Resp B/P (MAP) Pulse Ox O2 Delivery O2 Flow Rate FiO2 06/27/17 12:01 97.8 92 17 106/57 (73) 97 06/27/17 08:00 97.6 94 16 120/55 (76) 97 06/27/17 04:22 97.4 84 17 122/60 (80) 96 06/27/17 03:06 18 06/27/17 03:06 18 06/27/17 00:12 97.6 88 18 126/60 (82) 96 06/26/17 21:48 Room Air 06/26/17 20:00 97.6 99 16 142/81 (101) 98 06/26/17 18:43 18 06/26/17 15:50 97.7 75 16 115/68 (84) 96 Room Air 06/26/17 15:45 70 16 120/65 (83) 96 Room Air 06/26/17 15:30 72 16 117/60 (79) 95 Room Air 06/26/17 15:15 74 15 115/63 (80) 95 Room Air 06/26/17 15:00 73 15 118/59 (78) 94 Room Air 06/26/17 14:52 15 06/26/17 14:45 72 15 116/55 (75) 94 Room Air 06/26/17 14:30 97.5 74 15 119/58 (78) 100 Nasal Cannula 2 06/26/17 14:15 78 15 122/60 (80) 99 Nasal Cannula 2 06/26/17 14:00 87 15 121/58 (79) 98 Nasal Cannula 2 06/26/17 13:45 96.9 88 15 120/59 (79) 97 Nasal Cannula 2 06/26/17 13:30 90 14 117/58 (77) 100 Nasal Cannula 3 06/26/17 13:23 96.2 96 12 122/57 (78) 100 Nasal Cannula 4 06/26/17 13:23 96.2 I/O 06/26/17 06/26/17 06/26/17 06/27/17 06/27/17 06/27/17 07:00 15:00 23:00 07:00 15:00 23:00 Intake Total 2406.99 ml 420 ml Output Total 200 ml Balance 2206.99 ml 420 ml Intake IV Total 2406.99 ml 420 ml Output Estimated Blood Loss 200 ml # Voids 1 0 Result Diagram: 06/27/17 0636 06/27/17 0636 Other Results Laboratory Tests Test 06/27/17 06:36 White Blood Count 21.1 TH/MM3 Red Blood Count 3.74 MIL/MM3 Hemoglobin 11.5 GM/DL Hematocrit 33.1 % Mean Corpuscular Volume 88.6 FL Mean Corpuscular Hemoglobin 30.7 PG Mean Corpuscular Hemoglobin Concent 34.7 % Red Cell Distribution Width 16.0 % Platelet Count 223 TH/MM3 Mean Platelet Volume 9.9 FL Neutrophils (%) (Auto) 80.7 % Lymphocytes (%) (Auto) 8.8 % Monocytes (%) (Auto) 9.7 % Eosinophils (%) (Auto) 0.5 % Basophils (%) (Auto) 0.3 % Neutrophils # (Auto) 17.0 TH/MM3 Lymphocytes # (Auto) 1.9 TH/MM3 Monocytes # (Auto) 2.1 TH/MM3 Eosinophils # (Auto) 0.1 TH/MM3 Basophils # (Auto) 0.1 TH/MM3 CBC Comment AUTO DIFF Differential Comment AUTO DIFF CONFIRMED Platelet Estimate NORMAL Platelet Morphology Comment ENLARGED Acanthocytes OCC Blood Urea Nitrogen 16 MG/DL Creatinine 0.99 MG/DL Random Glucose 101 MG/DL Total Protein 6.5 GM/DL Albumin 3.2 GM/DL Calcium Level 8.8 MG/DL Phosphorus Level 3.2 MG/DL Magnesium Level 2.2 MG/DL Alkaline Phosphatase 75 U/L Aspartate Amino Transf (AST/SGOT) 30 U/L Alanine Aminotransferase (ALT/SGPT) 34 U/L Total Bilirubin 0.5 MG/DL Sodium Level 141 MEQ/L Potassium Level 4.3 MEQ/L Chloride Level 107 MEQ/L Carbon Dioxide Level 28.5 MEQ/L Anion Gap 6 MEQ/L Estimat Glomerular Filtration Rate 54 ML/MIN Free Thyroxine 1.30 NG/DL Thyroid Stimulating Hormone 3rd Gen 0.743 uIU/ML Imaging Last Impressions Hip X-Ray 06/26/17 0933 Signed Impressions: Service Date/Time: Monday, June 26, 2017 14:38 - CONCLUSION: Left knee arthroplasty. Bo Conner MD Objective Remarks GENERAL: This is a well-nourished, well-developed patient, in no apparent distress. SKIN: No rashes, ecchymoses or lesions. Cool and dry. HEAD: Atraumatic. Normocephalic. No temporal or scalp tenderness. EYES: Pupils equal round and reactive. Extraocular motions intact. No scleral icterus. No injection or drainage. ENT: Nose without bleeding, purulent drainage or septal hematoma. Throat without erythema, tonsillar hypertrophy or exudate. Uvula midline. Airway patent. NECK: Trachea midline. No JVD or lymphadenopathy. Supple, nontender, no meningeal signs. CARDIOVASCULAR: Regular rate and rhythm without murmurs, gallops, or rubs. S1- S2 no S3 or S4 RESPIRATORY: Clear to auscultation. Breath sounds equal bilaterally. No wheezes , rales, or rhonchi. GASTROINTESTINAL: Abdomen soft, non-tender, nondistended. No hepato-splenomegaly , or palpable masses. No guarding. MUSCULOSKELETAL: Extremities without clubbing, cyanosis, or edema. No joint tenderness, effusion, or edema noted. No calf tenderness. Negative Homans sign bilaterally. Left hip is dressed NEUROLOGICAL: Awake and alert. Cranial nerves II through XII intact. Motor and sensory grossly within normal limits. Five out of 5 muscle strength in all muscle groups. Normal speech. Insight and judgment is good Mood and behavior is appropriate Procedures Date of Surgery: Jun 26, 2017 Preoperative Diagnosis: (1) Primary osteoarthritis of left hip Postoperative Diagnosis: (1) Primary osteoarthritis of left hip Procedure: Left total hip arthroplasty using [place] prosthesis. Anesthesia: Spinal with supplemental local with bupivacaine liposomal. Surgeon: Dorian Sun MD Lathe Hand(s): Kendra Pillai MD Operation and Findings: Indications and Findings: This 81-year-old woman has 3-4 years of left hip pain that is progressively worsening to the point that her ambulation tolerance is 1/ 4 mile. The hip pain will awaken her at night. She has pain on motion. This has not responded to activity modification, exercise, ambulatory aids, nonsteroidal anti-inflammatories or analgesics. Physical findings showed limited range of motion due to tenderness in the hip. She has an antalgic gait. X-rays show loss of articular cartilage to bone on bone in the depths of the acetabulum with degenerative cysts and osteophytes. Operative findings showed severe arthritis in the left hip with loss of articular cartilage and [id number], small cyst and some osteophytes. The prosthesis used as a [employer] prosthesis with the acetabulum being a Tritanium cluster shell size 52 mm outer diameter with a 36 mm inner diameter liner of X3 polyethylene with a 0 lip. A single screw was used. The femoral component was an Accolade 2 femoral stem size 4 x 132 with a Biolox Delta femoral head size 36 mm outer diameter with a -5 mm neck length. The patient was brought to the clean air operating suite and a spinal anesthetic was administered. The patient was then positioned into a lateral position with the left hip up on a Postcron lateral positioner. The hip and lower extremity were then prepped with alcohol, Hibiclens and ChloraPrep and draped in the usual manner with the hip draped free. Patient received prophylactic antibiotics preoperatively. The patient also received tranexamic acid preoperatively. An appropriate timeout procedure was carried out. An incision was then made from the midportion of the greater trochanter proximally and posteriorly paralleling the fibers of the gluteus alejandra. The incision was deepened through subcutaneous tissues down to the fascia zuri and gluteus fascia. The gluteus fascia was then split longitudinally in line with its fibers up to the upper portion of the fascia zuri. With wound towels in place, the Charnley retractor was inserted. The sciatic nerve was identified and protected throughout the procedure. Dissection was then carried down to the interval between the gluteus minimus and the piriformis. A retractor was inserted. The piriformis and obturator conjoined tendon was released from the greater trochanter and reflected off the capsule. A capsulotomy was made longitudinally along the femoral neck to the base of the femoral neck and then curved distally along the posterior aspect of the greater trochanter. The hip was then internally rotated. Further release of the external rotators was carried out exposing the hip. The hip was then dislocated. The femoral neck was transected at the appropriate level using the oscillating saw placement of appropriate retractors. The femoral head was then removed. Preparation of the femur was initiated with a box osteotome followed by a curet to identify the medullary canal. Broaching was then initiated with the size 0 broach and went and 1 size increments up to size 4. The broach handle was removed. The femoral neck was then trimmed with a calcar planar. Attention was then directed to the acetabulum. Soft tissues were debrided from the acetabulum. Retractors were placed about the acetabulum. Reaming was then initiated with the 43 millimeter reamer and went in 1 mm increments up to the 51 millimeter diameter reamer. A trial reduction with the 50 to millimeter trial prosthesis was carried out. When this was deemed to be appropriate, the trial prosthesis was removed. The acetabulum was then irrigated and cleaned. The actual prosthesis as noted above was then impacted into place and seated appropriately. Drill holes were then made and sounded. Appropriate sized screws were then inserted to stabilize the acetabulum further. The liner as noted above was then inserted into the acetabular shell and impacted into place. Osteophytes were trimmed from the acetabulum. Local anesthetic was then administered throughout the area of the acetabulum and anterior aspect of the femur. The trial neck was then placed on the broach for the above-noted prosthesis. The femoral head trial was placed onto the femoral neck with the external diameter of the head being 36 millimeters and the neck length being -5 millimeters. A trial reduction was then carried out. The stability, leg length and motion were excellent. There was no pistoning. The trial prosthesis was removed. Re-broaching of the femur was carried out to improve the mobility and stability. The broach was removed. The femoral component was then impacted into the medullary canal of the femur after irrigation and suctioning. When this was appropriately seated a trial reduction was again carried out with the trial prosthesis. Again, there was no pistoning. The leg length was appropriate. The stability and motion were excellent. The trial prosthesis was then removed. After cleaning and drying the trunion of the femoral component, the above-noted femoral head was impacted onto the trunnion. The hip was then reduced. The stability and mobility were again checked along with leg lengths as noted above. The hip was then positioned appropriately and closure commenced after the remainder of the local anesthetic was injected throughout the hip. The external rotators and capsule were then repaired with #1 Vicryl interrupted transosseous sutures with a Krakw technique to reattach the external rotators and capsule to the posterior aspect of the greater trochanter. The capsule itself on the superior aspect was closed with #1 Vicryl interrupted [id number] sutures. The sciatic nerve was again inspected. The fascia zuri and gluteus fascia were then repaired with #1 Vicryl interrupted [id number] sutures. The subcutaneous tissues were closed with 2-0 Vicryl interrupted simple sutures with buried knots. The skin was closed with a continuous subcuticular closure of 4-0 Monocryl. The wound was then approximated with Dermabond Prineo. A dry dressing was applied to the hip. A knee immobilizer was applied to the leg. The patient was then transferred from the operating room to the recovery room in satisfactory condition having tolerated the procedure well. Counts are correct. Specimens: None. Estimated blood loss: 200 mL Keisha Sun MD ([place]) Medications and IVs Current Medications Lactated Ringer's 1,000 ml @ 30 mls/hr Q24H PRN IV SEE LABEL COMMENTS; Start at 07:45; Stop 06/26/17 at 11:39; Status DC Sodium Chloride 500 ml @ 30 mls/hr [id number] PRN IV SEE LABEL COMMENTS; Start at 07:45; Stop 06/26/17 at 11:39; Status DC Metoprolol Tartrate (Lopressor) 25 mg FRUIT AND VEGETABLE PACKER PRN PO SEE LABEL COMMENTS; Start 06/26/17 at 07:45; Stop 06/29/17 at 07:44 Povidone Iodine (Betadine 5% Antisepsis Kit) 1 applic FRUIT AND VEGETABLE PACKER PRN EACH NARE SEE LABEL COMMENTS; Start 06/26/17 at 07:45; Stop 06/29/17 at 07:44 Chlorhexidine Gluconate (Chlorhexidine 2% Cloth) 3 pack FRUIT AND VEGETABLE PACKER PRN TOPICAL SEE LABEL COMMENTS; Start 06/26/17 at 07:45; Stop 06/29/17 at 07:44 Chlorhexidine Gluconate (Hibiclens 4% Top Soln) 1 applic ONCE TOPICAL ; Start at 07:45; Stop 06/29/17 at 07:44 Cefazolin Sodium/ Dextrose 50 ml @ 100 mls/hr FRUIT AND VEGETABLE PACKER IV Last administered on 06/26/17at 10:38; Start 06/26/17 at 07:45; Stop 06/29/17 at 07:44 Tranexamic Acid 699 mg/Sodium Chloride 106.99 ml @ 200 mls/ hr ONCE IV Last administered on 06/26/17at 10:33; Start 06/26/17 at 09:00; Stop 06/26/17 at 15:00 ; Status DC Tranexamic Acid 699 mg/Sodium Chloride 106.99 ml @ 200 mls/ hr ONCE IV Last administered on 06/26/17at 13:51; Start 06/26/17 at 12:00; Stop 06/26/17 at 18:00 ; Status DC Bupivacaine Liposome 20 ml/ Sodium Chloride 60 ml @ 120 mls/hr ONCE P-ARTICULR Last administered on 06/26/17at 10:57; Start 06/26/17 at 09:00; Stop 06/26/17 at 15:00; Status DC Gentamicin Sulfate (Gentamicin Inj) 240 mg STK-MED ONCE .ROUTE Last administered on 06/26/17at 10:57; Start 06/26/17 at 09:08; Stop 06/26/17 at 09:09 ; Status DC Lactated Ringer's 1,000 ml @ 80 mls/hr [id number] IV Last administered on at 14:00; Start 06/26/17 at 09:33 Cefazolin Sodium 1000 mg/Sodium Chloride 100 ml @ 200 mls/hr Q6H IV Last administered on 06/27/17at 04:59; Start 06/26/17 at 17:00; Stop 06/27/17 at 05:29 ; Status DC Miscellaneous Information (Post-op Orders (for Pharmacy)) STAT ONCE XX ; Start 06/26/17 at 13:30; Stop 06/26/17 at 13:31; Status DC Morphine Sulfate (Morphine Inj) 4 mg Q3H PRN IV PUSH BREAKTHROUGH PAIN Last administered on 06/26/17at 18:38; Start 06/26/17 at 13:30 Acetaminophen/ Hydrocodone Bitart ([place] 7.5-325 Mg) 1 tab Q4H PRN PO PAIN LESS THAN 5 ON SCALE Last administered on 06/27/17at 06:56; Start 06/26/17 at 09: 45 Acetaminophen/ Hydrocodone Bitart ([place] 7.5-325 Mg) 2 tab Q4H PRN PO PAIN SCALE 5 TO 10 Last administered on 06/27/17at 10:59; Start 06/26/17 at 09:45 Ketorolac Tromethamine (Toradol Inj) 15 mg Q6H IVP Last administered on at 08:20; Start 06/26/17 at 14:00; Stop 06/28/17 at 08:01 Tranexamic Acid / Sodium Chloride 100 ml @ 200 mls/hr UNSCH IV ; Start at 09:45; Stop 06/26/17 at 11:52; Status DC Ondansetron HCl (Zofran Inj) 4 mg Q6H PRN IVP NAUSEA OR VOMITING Last administered on 06/26/17at 21:31; Start 06/26/17 at 09:45 Zolpidem Tartrate (Ambien) 5 mg HS PRN PO SLEEP; Start 06/26/17 at 09:45 Bisacodyl (Dulcolax Supp) 10 mg DAILY PRN RECTAL SEVERE CONSTIPATION; Start at 09:45 Magnesium Hydroxide (Milk Of Magnesia Liq) 30 ml DAILY PRN PO MILD TO MODERATE CONSTIPATION; Start 06/26/17 at 09:45 Aspirin (Ecotrin Ec) 81 mg BID PO ; Start 06/27/17 at 12:30 Acetaminophen 100 ml @ As Directed STK-MED ONCE IV ; Start 06/26/17 at 09:35; Stop 06/26/17 at 09:36; Status DC Propofol 100 ml @ As Directed STK-MED ONCE .ROUTE ; Start 06/26/17 at 09:36; Stop 06/26/17 at 09:37; Status DC Bupivacaine HCl/ Dextrose (Marcaine Spinal Inj) 2 ml STK-MED ONCE .ROUTE ; Start 06/26/17 at 09:36; Stop 06/26/17 at 09:37; Status DC Famotidine (Pepcid Inj) 20 mg STK-MED ONCE .ROUTE ; Start 06/26/17 at 09:36; Stop 06/26/17 at 09:37; Status DC Cholestyramine Resin (Questran 4 Gm Pkt) 4 gm DAILY PO ; Start 06/27/17 at 09:00 Estradiol (Estradiol) 1 mg DAILY PO Last administered on 06/27/17at 08:19; Start 06/27/17 at 09:00 Levothyroxine Sodium (Synthroid) 125 mcg DAILY@0600 PO Last administered on at 04:59; Start 06/27/17 at 06:00 Sumatriptan Succinate (Imitrex) 100 mg ONCE PRN PO MIGRAINE HEADACHE Last administered on 06/27/17at 02:31; Start 06/26/17 at 09:45; Stop 06/30/17 at 09:44 Calcium/Vitamin D (Oscal-D 250-125) 500 mg DAILY PO Last administered on at 08:19; Start 06/27/17 at 09:00 Non-Formulary Medication 1 applic HS PRN TOPICAL FUN; Start 06/26/17 at 09:45; Stop 06/26/17 at 13:22; Status DC Multivitamins/ Minerals Therapeutic (Theragran M Tab) 1 tab DAILY PO Last administered on 06/27/17at 08:19; Start 06/27/17 at 09:00 Clonidine (Catapres) 0.1 mg Q4H PRN PO SBP>160, DBP>90; Start 06/26/17 at 10:15 Midazolam HCl (Versed Inj) 2 mg STK-MED ONCE .ROUTE ; Start 06/26/17 at 13:33; Stop 06/26/17 at 13:34; Status DC Fentanyl Citrate (fentaNYL INJ) 100 mcg STK-MED ONCE .ROUTE ; Start 06/26/17 at 13:33; Stop 06/26/17 at 13:34; Status DC Miscellaneous Information ALL NURSING DEPARTME... UNSCH PRN .XX SEE LABEL COMMENTS; Start 06/26/17 at 13:23; Stop 06/27/17 at 13:22 Morphine Sulfate (*morphine INJ PERIprocedure ONLY) 4 mg STK-MED ONCE .ROUTE Last administered on 06/26/17at 14:47; Start 06/26/17 at 14:47; Stop 06/26/17 at 14:48; Status DC Clonidine (Catapres) 0.1 mg Q4H PRN PO SBP>160, DBP>90; Start 4/16/18 at 16:45 A/P Problem List: (1) Primary osteoarthritis of left hip ICD Code: M16.12 - Unilateral primary osteoarthritis, left hip Status: Resolved (2) Hypothyroidism ICD Code: E03.9 - Hypothyroidism Status: Acute (3) Migraine ICD Code: G43.909 - Migraine Status: Acute Assessment and Plan Status post left total hip arthroplasty due to severe osteoarthritis will defer to orthopedic surgery for pain control and anticoagulation Hypothyroidism resume home medication Migraines as needed medications Osteoarthritis pain control as needed Gait instability physical therapy and occupational Hypertension continue on home meds as needed and as needed's LEUKOCYTOSIS- CHECK AM LABS DVT prophylaxis per orthopedic GI prophylaxis with Pepcid Discharge Planning PENDING ORTHO CLEARANCE Good Toure DO Jun 27, 2017 12:24
[2017-06-27] MEDS: ASPIRIN EC 81 MG TABEC PO SCH ×2 (12:35→20:49)
[2017-06-27 18:34] LABS: BACTERIA, URINE RARE /hpf; BILIRUBIN, URINE NEG (NEG); BLOOD, URINE NEG (NEG); CALCIUM OXALATE CRYSTALS,URINE MANY /hpf; GLUCOSE,URINE NEG (NEG); HYALINE CAST, URINE 23 /lpf (RARE); KETONE, URINE TRACE mg/dL (NEG); MUCUS URINE MOD /lpf (OCC); NITRITE,URINE NEG (NEG); SQUAMOUS EPITHELIAL CELL URINE 10 /hpf (0-5); URINE COLOR DARK-YELLOW (YELLW/STRAW); URINE LEUKOCYTE ESTERASE NEG (NEG)
[2017-06-28] VITALS: BP 114/54; PULSE 90; RESP 18; TEMP 97.6; O2SAT 96
[2017-06-28] MEDS: KETOROLAC TROMETHAMINE 30 MG/ML (IVP) VIAL IVP SCH ×2 (02:16→08:00)
[2017-06-28] MEDS: LEVOTHYROXINE SODIUM 125 MCG TAB PO SCH (06:12)
--- NOTE | 2017-06-28 07:01 | PD.ORT.PN ---
Subjective Post Op Day #: 2 Subjective Remarks She is doing well. There is some pain but not a great deal. Distance Walked 25 feet with PT. Objective Vitals Vital Signs Date Time Temp Pulse Resp B/P (MAP) Pulse Ox O2 Delivery O2 Flow Rate FiO2 06/28/17 02:53 18 06/28/17 00:00 97.6 90 18 114/54 (74) 96 06/27/17 21:35 Room Air 06/27/17 20:00 98.0 85 18 114/57 (76) 98 06/27/17 18:01 99 21 06/27/17 17:33 97.4 98 16 140/62 (88) 99 06/27/17 12:01 97.8 92 17 106/57 (73) 97 06/27/17 08:00 97.6 94 16 120/55 (76) 97 I/O 06/27/17 06/27/17 06/27/17 06/28/17 06/28/17 06/28/17 07:00 15:00 23:00 07:00 15:00 23:00 Intake Total 700 ml Balance 700 ml Intake Oral 700 ml # Voids 5 Result Diagram: 06/27/17 0636 06/27/17 0636 Imaging Last 24 hours Impressions Hip X-Ray 06/26/17 0933 Signed Impressions: Service Date/Time: Monday, June 26, 2017 14:38 - CONCLUSION: Left knee arthroplasty. Bo Conner MD Procedures Left total hip arthroplasty with a [place] prosthesis on 06/26/2017 Objective Remarks She is out of bed, walking in the room with a walker. Her gait pattern is appropriate. She transferred to a chair appropriately. The neurovascular status is intact. The dressing is dry and intact. Assessment & Plan Ortho Post Op Day #: 2 Problem List: (1) Primary osteoarthritis of left hip ICD Codes: M16.12 - Unilateral primary osteoarthritis, left hip Status: Resolved (2) Status post total left knee replacement ICD Codes: Z96.652 - Presence of left artificial knee joint Status: Acute Plan: Continue postop care and PT. Assessment and Plan Condition: Good. Orthopedically stable. DVT prophylaxis: TEDs, aspirin, sequentials. Discharge plans: Home with home health care. An appointment was scheduled through the office. Prescriptions: [place] 7.5/325 Keisha Sun MD ([place]) Jun 28, 2017 07:01
[2017-06-28 07:54] VITALS: BP 118/57; PULSE 98; RESP 18; TEMP 98.2; O2SAT 98
[2017-06-28] MEDS: CHOLESTYRAMINE 4 GM PACKET PO SCH (09:01)
[2017-06-28] MEDS: CALCIUM/VITAMIN D 250 MG/125 U TAB PO SCH (09:01)
[2017-06-28] MEDS: ESTRADIOL 1 MG TAB PO SCH (09:02)
[2017-06-28] MEDS: ACETAMINOPHEN/HYDROcodone 325 MG/7.5 MG TAB PO PRN (09:02)
[2017-06-28] MEDS: ASPIRIN EC 81 MG TABEC PO SCH (09:02)
[2017-06-28] MEDS: MULTIVITAMINS/MINERALS THERAPEUTIC TAB PO SCH (09:02)
[2017-06-28 09:44] LABS: AUTOMATED NEUTROPHIL # 14.7 TH/MM3 (1.8-7.7); BASOPHIL # 0.1 TH/MM3 (0-0.2); BASOPHIL % 0.7 % (0.0-2.0); EOSINOPHIL # 0.1 TH/MM3 (0-0.4); EOSINOPHIL % 0.7 % (0.0-4.0); HEMATOCRIT 32.8 % (35.0-46.0); HEMOGLOBIN 11.1 GM/DL (11.6-15.3); LYMPH % 9.2 % (9.0-44.0); LYMPHOCYTE # 1.7 TH/MM3 (1.0-4.8); MEAN CELL VOLUME 89.2 FL (80.0-100.0); MEAN CORPUSCULAR HEMOGLOBIN 30.2 PG (27.0-34.0); MEAN CORPUSCULAR HGB CONC 33.8 % (32.0-36.0); MEAN PLATELET VOLUME 9.5 FL (7.0-11.0); MONO % 9.1 % (0.0-8.0); MONOCYTE # 1.7 TH/MM3 (0-0.9); NEUT % 80.3 % (16.0-70.0); PLATELET COUNT 202 TH/MM3 (150-450); RED BLOOD COUNT 3.67 MIL/MM3 (4.00-5.30); RED CELL DISTRIBUTION WIDTH 16.4 % (11.6-17.2); WHITE BLOOD COUNT 18.3 TH/MM3 (4.0-11.0)
[2017-06-28 10:13] LABS: ALBUMIN 3.4 GM/DL (3.4-5.0); AST (GOT) 34 U/L (15-37); BICARBONATE 26.9 MEQ/L (21.0-32.0); BLOOD UREA NITROGEN 22 MG/DL (7-18); CHLORIDE 100 MEQ/L (98-107); CREATININE 1.01 MG/DL (0.50-1.00); GLOMERULAR FILTRATION RATE 53 ML/MIN (>89); GLUCOSE,RANDOM 131 MG/DL (74-106); MAGNESIUM 2.3 MG/DL (1.5-2.5); SODIUM (NA) 135 MEQ/L (136-145)
[2017-06-28 10:18] LABS: ALKALINE PHOSPHATASE 74 U/L (45-117); ALT (GPT) 30 U/L (10-53); PHOSPHORUS 2.9 MG/DL (2.5-4.9); TOTAL BILIRUBIN ADULT 0.5 MG/DL (0.2-1.0); TOTAL PROTEIN 6.9 GM/DL (6.4-8.2)
== END 2017-06-28 10:44 | disposition home health service (06) | DRG 470 ==
LOC: HSDI 07:14 → N06A 16:07
PROVIDERS: ADMIT Orthopaedic Surgery; ATTEND Orthopaedic Surgery
PROC: 0SRB04A Replacement of Left Hip Joint with Ceramic on Polyethylene Synthetic Substitute, Uncemented, Open Approach (ICD-10-PCS; principal; 2017-06-26 10:14)
DX: M16.12 Unilateral primary osteoarthritis, left hip (principal); D72.829 Elevated white blood cell count, unspecified; I10 Essential (primary) hypertension; E03.9 Hypothyroidism, unspecified; G43.909 Migraine, unspecified, not intractable, without status migrainosus; Z96.652 Presence of left artificial knee joint; Z87.891 Personal history of nicotine dependence
CPT/HCPCS: 73502; 80053; 81001; 83036; 83735; 84100; 84439; 84443; 85025; 86850; 86900; 86901; 94150; C1776; J0131; J0690; J1100; J1580; J1885; J2250; J2270; J2370; J2405; J3010; J7120; L1830

== ENCOUNTER 2017-07-01 23:08 | Inpatient (IN) | payer MEDICARE ==
[~2017-07-01] VITALS: Ht 167.6 cm; Wt 69.0 kg
[~2017-07-01 23:08] MED LIST changes: -ASPI1TAB57 PO; -CICL0.773 TOPICAL; +ECASA81 PO; +HYDR-3580 PO; -[UNRECOGNIZED DRUG - CODE] TOPICAL
[2017-07-01] MEDS ORDERED: IOHEXOL 350 MG/ML 10 ML VIAL (for RAD DIAG) IVCONTRAST ONE (23:09)
[2017-07-01 23:26] VITALS: BP 162/71; PULSE 113; RESP 16; O2SAT 98
[2017-07-02] VITALS (8 sets, daily range): BP systolic 108–145; BP diastolic 54–72; PULSE 89–120; RESP 16–22; TEMP 98.2–99.3; O2SAT 96–100
[2017-07-02] MEDS ORDERED: SODIUM CHLOR 0.9% 1000 ML INJ 1,000 ML IV SCH (00:13)
[2017-07-02] MEDS ORDERED: ONDANSETRON HCL 4 MG/2 ML VIAL IVP ONE (00:15)
[2017-07-02] MEDS ORDERED: MORPHINE SULFATE 4 MG/ML INJ IV PUSH ONE (00:15)
[2017-07-02] MEDS ORDERED: PANTOPRAZOLE SODIUM 40 MG VIAL IVP ONE (00:15)
[2017-07-02] MEDS ORDERED: SODIUM CHLORIDE 0.9% FLUSH 10 ML FLUSH IV FLUSH PRN ×2 (00:15→02:45)
--- NOTE | 2017-07-02 00:21 | PD ---
HPI Chief Complaint: Abdominal Pain Time Seen by Provider: 00:01 Travel History International Travel<30 days: No Contact w/Intl Traveler<30days: No Traveled to known affect area: No History of Present Illness HPI 81-year-old female complains of abdominal pain. Patient status post left hip arthroplasty on June 26, 2017. Physician was Dr. Sun. Patient states that she had a bowel movement the day after surgery however none since then. Patient has been taking hydrocodone for pain. Patient states that she started having abdominal pain for the past 5 days. Patient states the pain cramping pain diffuse over the abdomen. Patient denies any pain radiation. Patient denies any fever chills. Patient denies any nausea vomiting. Patient denies any dysuria frequency. Patient denies any vaginal discharge or bleeding. Patient status post hysterectomy in the past. Patient has history hypothyroidism. On a scale of 1-10 the pain is a 7. PFSH Past Medical History Arthritis: Yes Asthma: Yes Autoimmune Disease: No Anxiety: No Depression: No Heart Rhythm Problems: No Cancer: No Cardiovascular Problems: No High Cholesterol: No Chemotherapy: No Chest Pain: No Congestive Heart Failure: No COPD: No Cerebrovascular Accident: No Diabetes: No Diminished Hearing: No Endocrine: Yes Gastrointestinal Disorders: Yes (POLYPS REMOVED FROM COLON 12/03/14, c-diff) GERD: No Genitourinary: No Headaches: Yes Hepatitis: No Hiatal Hernia: No Immune Disorder: No Kidney Stones: No Musculoskeletal: Yes (OA, rotator cuff repaired bilaterally) Neurologic: Yes (MIGRAINES) Psychiatric: No Reproductive: Yes (HYSTERECTOMY IN THE PAST) Respiratory: Yes Immunizations Current: Yes Migraines: Yes Radiation Therapy: No Renal Failure: No Seizures: No Sickle Cell Disease: No Sleep Apnea: No Thyroid Disease: Yes (HYPOTHYROIDISM) Ulcer: No Menopausal: Yes : 2 Para: 2 Past Surgical History Abdominal Surgery: No AICD: No Arteriovenous Shunt: No Body Medical Devices: Pt denies any other implants. Cardiac Surgery: No Ear Surgery: No Endocrine Surgery: No Eye Surgery: Yes (BILATERAL CATARACTS) Genitourinary Surgery: No Gynecologic Surgery: Yes (HYSTERECTOMY) Hysterectomy: Yes Insulin Pump: No Joint Replacement: No Oral Surgery: No Pacemaker: No Thoracic Surgery: No Tonsillectomy: Yes Other Surgery: Yes (bilateral cataract) Social History Alcohol Use: No Tobacco Use: Yes (QUIT 40 YEARS AGO) Substance Use: No Allergies-Medications (Allergen,Severity, Reaction): Coded Allergies: benzonatate (Verified Allergy, Severe, MIGRAINES, 07/01/17) ciprofloxacin (Verified Allergy, Severe, GI issues, 07/01/17) dextromethorphan (Verified Allergy, Severe, MIGRAINES, 07/01/17) red (food color) (Verified Allergy, Severe, MIGRAINES, 07/01/17) scopolamine (Verified Allergy, Severe, EDEMA, 07/01/17) adhesive tape (Verified Allergy, Unknown, Skin removed with tape, 07/01/17) cefuroxime (Verified Adverse Reaction, Severe, Diarrhea, 07/01/17) Reported Meds & Prescriptions Reported Meds & Active Scripts Active Hydrocodone-Acetamin 7.5-325 (Hydrocodone/Acetaminophen) 7.5 Mg-325 Mg Tablet 1 Tab PO Q4H PRN Aspirin DR (Aspirin) 81 Mg Tabdr 81 Mg PO BID 30 Days Reported Penlac (Nail Lacquer) Topical (Ciclopirox (Nail Lacquer) Topical) 8% Soln 1 Applic TOPICAL HS PRN Caltrate 600+D Chew (Calcium Carbonate-Vitamin D Chew) 600-400 Mg-Unit Chew 1 Tab PO DAILY Senior Tabs (Multiple Vitamins W/ Minerals) 0.4 Mg-300 Mcg-250 Mcg Tab 1 Tab PO DAILY Sumatriptan (Sumatriptan Succinate) 100 Mg Tab 100 Mg PO ONCE PRN If a satisfactory response has not been obtained at 2 hours, a second dose may be administered Cholestyramine 4 Gm/Pkt Powd 4 Gm PO DAILY 1 packet contains 4 grams of cholestyramine. Estrace (Estradiol) 1 Mg Tab 1 Mg PO DAILY Synthroid (Levothyroxine Sodium) 125 Mcg Tab 125 Mcg PO DAILY Review of Systems General / Constitutional: No: Fever Eyes: No: Visual changes HENT: No: Headaches Cardiovascular: No: Chest Pain or Discomfort Respiratory: No: Shortness of Breath Gastrointestinal: Positive: Abdominal Pain Genitourinary: No: Dysuria Musculoskeletal: No: Pain Skin: No Rash Neurologic: No: Weakness Psychiatric: No: Depression Endocrine: No: Polydipsia Hematologic/Lymphatic: No: Easy Bruising Physical Exam Narrative GENERAL: Well-nourished, well-developed patient. SKIN: Focused skin assessment warm/dry. HEAD: Normocephalic. EYES: No scleral icterus. No injection or drainage. NECK: Supple, trachea midline. No JVD or lymphadenopathy. CARDIOVASCULAR: Regular rate and rhythm without murmurs, gallops, or rubs. RESPIRATORY: Breath sounds equal bilaterally. No accessory muscle use. GASTROINTESTINAL: Abdomen soft, nondistended. Patient has moderate diffuse tenderness over the abdomen, especially epigastric area. No rebound tenderness. No mass. Hypoactive bowel sounds. MUSCULOSKELETAL: No cyanosis, or edema. Surgical scar with dressing in place left hip. BACK: Nontender without obvious deformity. No CVA tenderness. Neurologic exam normal. Data Data Last Documented VS Vital Signs Date Time Temp Pulse Resp B/P (MAP) Pulse Ox O2 Delivery O2 Flow Rate FiO2 07/02/17 01:33 98.2 120 16 143/64 (90) 98 Nasal Cannula 2.00 Orders Orders Complete Blood Count With Diff (07/02/17 00:13) Comprehensive Metabolic Panel (07/02/17 00:13) Lipase (07/02/17 00:13) Prothrombin Time / Inr (Pt) (07/02/17:13) Act Partial Throm Time (Ptt) (07/02/17 00:13) Urinalysis - C+S If Indicated (07/02/17 00:13) Ct Abd/Pel W Iv Contrast(Rout) (07/02/17:13) Iv Access Insert/Monitor (07/02/17 00:13) Ecg Monitoring (07/02/17 00:13) Oximetry (07/02/17 00:13) Morphine Inj (Morphine Inj) (07/02/17 00:15) Ondansetron Inj (Zofran Inj) (07/02/17 00:15) Pantoprazole Inj (Protonix Inj) (07/02/17 00:15) Sodium Chlor 0.9% 1000 Ml Inj (Ns 1000 M (07/02/17 00:13) Sodium Chloride 0.9% Flush (Ns Flush) (07/02/17 00:15) Iohexol 350 Inj (Omnipaque 350 Inj) (07/01/17 23:09) Labs Laboratory Tests Test 07/02/17 00:33 07/02/17 00:35 Urine Color LIGHT-YELLOW Urine Turbidity CLEAR Urine pH 8.0 Urine Specific [place] 1.007 Urine Protein NEG mg/dL Urine Glucose (UA) NEG mg/dL Urine Ketones NEG mg/dL Urine Occult Blood NEG Urine Nitrite NEG Urine Bilirubin NEG Urine Urobilinogen LESS THAN 2.0 MG/DL Urine Leukocyte Esterase NEG Urine RBC LESS THAN 1 /hpf Urine WBC LESS THAN 1 /hpf Urine Squamous Epithelial Cells 4 /hpf Urine Amorphous Sediment RARE Microscopic Urinalysis Comment CULT NOT INDICATED White Blood Count 26.2 TH/MM3 Red Blood Count 3.57 MIL/MM3 Hemoglobin 10.8 GM/DL Hematocrit 31.4 % Mean Corpuscular Volume 88.0 FL Mean Corpuscular Hemoglobin 30.2 PG Mean Corpuscular Hemoglobin Concent 34.3 % Red Cell Distribution Width 16.6 % Platelet Count 321 TH/MM3 Mean Platelet Volume 10.0 FL Neutrophils (%) (Auto) 87.6 % Lymphocytes (%) (Auto) 3.9 % Monocytes (%) (Auto) 7.3 % Eosinophils (%) (Auto) 0.6 % Basophils (%) (Auto) 0.6 % Neutrophils # (Auto) 23.0 TH/MM3 Lymphocytes # (Auto) 1.0 TH/MM3 Monocytes # (Auto) 1.9 TH/MM3 Eosinophils # (Auto) 0.1 TH/MM3 Basophils # (Auto) 0.2 TH/MM3 CBC Comment DIFF FINAL Differential Comment Prothrombin Time 10.0 SEC Prothromb Time International Ratio 1.0 RATIO Activated Partial Thromboplast Time 28.5 SEC Blood Urea Nitrogen 19 MG/DL Creatinine 0.97 MG/DL Random Glucose 110 MG/DL Total Protein 7.3 GM/DL Albumin 3.1 GM/DL Calcium Level 9.3 MG/DL Alkaline Phosphatase 86 U/L Aspartate Amino Transf (AST/SGOT) 32 U/L Alanine Aminotransferase (ALT/SGPT) 31 U/L Total Bilirubin 0.8 MG/DL Sodium Level 135 MEQ/L Potassium Level 4.2 MEQ/L Chloride Level 98 MEQ/L Carbon Dioxide Level 28.0 MEQ/L Anion Gap 9 MEQ/L Estimat Glomerular Filtration Rate 55 ML/MIN Lipase 133 U/L [facility] Medical Decision Making Medical Screen Exam Complete: Yes Emergency Medical Condition: Yes Medical Record Reviewed: Yes Interpretation(s) 2:04 AM. CBC WBC 26.2. Hemoglobin 10.8 hematocrit 31.4. 87 neutrophil. Sodium 135. BUN 19. GFR 55. UA is negative. 2:[address] scan abdomen pelvis shows duodenitis. Differential Diagnosis Differential diagnosis including gastritis, PUD, pancreatitis, colitis, UTI, pyelonephritis, nephrolithiasis, bowel obstruction, constipation. Narrative Course 81-year-old female with abdominal pain and no bowel movement for the past 5 days. Status post left hip arthroplasty. Normal saline solution 1 25 cc an hour. Morphine 2 mg IV. Zofran 4 mg IV. Protonix 40 mg IV. Diagnosis Primary Impression: Duodenitis Admitting Information Admitting Physician Requests: Admit Earl Euceda MD Jul 02, 2017 00:21
[2017-07-02 01:01] LABS: BASOPHIL # 0.2 TH/MM3 (0-0.2); BASOPHIL % 0.6 % (0.0-2.0); EOSINOPHIL # 0.1 TH/MM3 (0-0.4); EOSINOPHIL % 0.6 % (0.0-4.0); HEMATOCRIT 31.4 % (35.0-46.0); HEMOGLOBIN 10.8 GM/DL (11.6-15.3); LYMPH % 3.9 % (9.0-44.0); MEAN CORPUSCULAR HEMOGLOBIN 30.2 PG (27.0-34.0); MEAN CORPUSCULAR HGB CONC 34.3 % (32.0-36.0); MONO % 7.3 % (0.0-8.0); MONOCYTE # 1.9 TH/MM3 (0-0.9); NEUT % 87.6 % (16.0-70.0); PLATELET COUNT 321 TH/MM3 (150-450); RED BLOOD COUNT 3.57 MIL/MM3 (4.00-5.30); RED CELL DISTRIBUTION WIDTH 16.6 % (11.6-17.2); WHITE BLOOD COUNT 26.2 TH/MM3 (4.0-11.0)
[2017-07-02 01:04] LABS: AMORPHOUS SEDIMENT, URINE RARE; BILIRUBIN, URINE NEG (NEG); BLOOD, URINE NEG (NEG); GLUCOSE,URINE NEG (NEG); KETONE, URINE NEG (NEG); NITRITE,URINE NEG (NEG); SQUAMOUS EPITHELIAL CELL URINE 4 /hpf (0-5); URINE COLOR LIGHT-YELLOW (YELLW/STRAW); URINE LEUKOCYTE ESTERASE NEG (NEG)
[2017-07-02 01:12] LABS: ALBUMIN 3.1 GM/DL (3.4-5.0); ALT (GPT) 31 U/L (10-53); AST (GOT) 32 U/L (15-37); BLOOD UREA NITROGEN 19 MG/DL (7-18); CALCIUM 9.3 MG/DL (8.5-10.1); CHLORIDE 98 MEQ/L (98-107); CREATININE 0.97 MG/DL (0.50-1.00); GLOMERULAR FILTRATION RATE 55 ML/MIN (>89); GLUCOSE,RANDOM 110 MG/DL (74-106); SODIUM (NA) 135 MEQ/L (136-145)
[2017-07-02 01:14] LABS: ALKALINE PHOSPHATASE 86 U/L (45-117); TOTAL BILIRUBIN ADULT 0.8 MG/DL (0.2-1.0); TOTAL PROTEIN 7.3 GM/DL (6.4-8.2)
--- NOTE | 2017-07-02 02:23 | RADRPT ---
EXAM DATE/TIME: 07/02/2017 02:03 [place] COMPARISON: CT ABDOMEN & PELVIS W CONTRAST, December 03, 2014, 23:36. INDICATIONS : Abdomen pain. IV CONTRAST: 80 cc Omnipaque 350 (iohexol) IV ORAL CONTRAST: No oral contrast ingested. RADIATION DOSE: 11.85 CTDIvol (mGy) MEDICAL HISTORY : Asthma SURGICAL HISTORY : Hysterectomy. Left hip replacement ENCOUNTER: Initial ACUITY: 3 days PAIN SCALE: 6/10 LOCATION: Bilateral abdomen TECHNIQUE: Volumetric scanning of the abdomen and pelvis was performed. Using automated exposure control and ad justment of the mA and/or kV according to patient size, radiation dose was kept as low as reasonably achievable to obtain optimal diagnostic quality images. DICOM format image data is available electro nically for review and comparison. FINDINGS: LOWER LUNGS: The visualized lower lungs are clear. LIVER: A 14 mm cyst is seen within segment 3 of the liver. This is stable. The remaining liver is unremarkab le. The gallbladder is nondistended. There is fluid seen adjacent to the gallbladder extending over t o the second portion of the duodenum. There is wall thickening involving the second portion of duoden um. SPLEEN: Normal size without lesion. PANCREAS: There is a 1 cm cyst involving the uncinate process. This is a long-term stable. The pancreas is othe rwise unremarkable. KIDNEYS: Normal in size and shape. There is no mass, stone or hydronephrosis. ADRENAL GLANDS: Within normal limits. VASCULAR: There is no aortic aneurysm. BOWEL/MESENTERY: There is an inflammatory process involving the first and second portions of the duodenum. This extend s laterally towards the gallbladder. The stomach, small bowel, and colon are otherwise unremarkable. There are a few scattered diverticula throughout the colon. ABDOMINAL WALL: Within normal limits. RETROPERITONEUM: There is no lymphadenopathy. BLADDER: No wall thickening or mass. REPRODUCTIVE: Within normal limits. INGUINAL: There is no lymphadenopathy or hernia. MUSCULOSKELETAL: A left hip prosthesis. CONCLUSION: 1. Acute inflammatory process involving the duodenum with secondary extension towards the gallbladder . The gallbladder is not distended. I see no calcified stones. I feel this relates to an acute duoden itis with secondary involvement of the gallbladder as opposed to acute cholecystitis with secondary i nvolvement of the duodenum. 2. Trace amount of free fluid adjacent to the tip of the liver and gallbladder. Kevin Cerda Jr., MD on July 02, 2017 at 2:17 Board Certified Radiologist. This report was verified electronically.
[2017-07-02] MEDS ORDERED: SENNOSIDES 8.6 MG TAB PO PRN (02:45)
[2017-07-02] MEDS ORDERED: METOCLOPRAMIDE HCL 10 MG/2 ML VIAL IV PUSH ONE (02:45)
[2017-07-02] MEDS ORDERED: diphenhydrAMINE HCL 50 MG/ML VIAL IV PUSH ONE (02:45)
[2017-07-02] MEDS ORDERED: ACETAMINOPHEN 325 MG TAB PO PRN (02:45)
[2017-07-02] MEDS ORDERED: BISACODYL 10 MG SUPP RECTAL PRN (02:45)
[2017-07-02] MEDS ORDERED: PIPERACIL-TAZO 3.375 GM PREMIX 50 ML IV ONE (02:45)
[2017-07-02] MEDS ORDERED: LACTULOSE SYRUP 20 GM/30 ML CUP PO PRN (02:45)
[2017-07-02] MEDS: SODIUM CHLOR 0.9% 1000 ML INJ 1,000 ML IV SCH ×3 (03:21→21:57)
--- NOTE | 2017-07-02 04:05 | HHI.HP ---
[facility] Katie Vaughan MD Admission Diagnosis Duodenitis. Status post left hip arthroplasty Diagnoses: (1) Sepsis Diagnosis: Principal (2) Duodenitis Diagnosis: Principal (3) S/P hip replacement Diagnosis: Principal Travel History International Travel<30 Days: No Contact w/Intl Traveler <30 Da: No Traveled to Known Affected Are: No History of Present Illness This is a 81-year-old female with a PMH of Osteoarthritis and Migraine who presented to the ER with complaints of abdominal pain x5 days. Recent admit for Left Hip Replacement by Dr. Sun on 06/26/17, states has been doing well post-op but having c/o abdominal pain, taking pain medication w/ minimal improvement. Notes diffuse abdominal pain, cramping, intermittent, moderate to severe, 8/10, no associated nausea or vomiting. Denies fever or chills. On arrival, BP 162/71, HR 113, O2 sat 98% on RA, Afebrile. WBC 26.2. Chemistry essentially unremarkable. INR 1.0. UA negative for UTI. CT Abdomen/Pelvis with acute inflammatory process involving the duodenum with secondary extension towards gallbladder, no gallbladder distention. S/p Zosyn in ER. Review of Systems Except as stated in HPI: all other systems reviewed are Neg ROS: 14 point review of systems otherwise negative. Past Family Social History Past Medical History PMH: Osteoarthritis and Migraine Past Surgical History PAST SURGICAL HISTORY: Bilateral Cataract Surgery, Hysterectomy, Left Hip Replacement Allergies: Coded Allergies: benzonatate (Verified Allergy, Severe, MIGRAINES, 07/01/17) ciprofloxacin (Verified Allergy, Severe, GI issues, 07/01/17) dextromethorphan (Verified Allergy, Severe, MIGRAINES, 07/01/17) red (food color) (Verified Allergy, Severe, MIGRAINES, 07/01/17) scopolamine (Verified Allergy, Severe, EDEMA, 07/01/17) adhesive tape (Verified Allergy, Unknown, Skin removed with tape, 07/01/17) cefuroxime (Verified Adverse Reaction, Severe, Diarrhea, 07/01/17) Family History PAST FAMILY HISTORY: Reviewed. No h/o DM or CAD Social History PAST SOCIAL HISTORY: Negative for alcohol, tobacco or drugs. Physical Exam Vital Signs Vital Signs Date Time Temp Pulse Resp B/P (MAP) Pulse Ox O2 Delivery O2 Flow Rate FiO2 07/02/17 03:19 120 18 145/66 (92) 99 Nasal Cannula 2.00 07/02/17 01:33 98.2 120 16 143/64 (90) 98 Nasal Cannula 2.00 07/02/17 01:31 96 Room Air 07/01/17 23:26 113 16 162/71 (101) 98 Physical Exam PE: GENERAL: Pleasant elderly white female in no acute distress. HEENT: PERRLA, EOMI. No scleral icterus or conjunctival pallor. No lid lag or facial droop. CARDIOVASCULAR: Regular rate and rhythm. No obvious murmurs to auscultation. No chest tenderness to palpation. RESPIRATORY: No obvious rhonchi or wheezing. Clear to auscultation. Breath sounds equal bilaterally. GASTROINTESTINAL: Abdomen soft, mild generalized tenderness to palpation, nondistended. BS normal. MUSCULOSKELETAL: Extremities without clubbing, cyanosis, or edema. No obvious deformities. Decreased ROM of LLE due to brace NEUROLOGICAL: Awake, alert and oriented x4. No focal neurologic deficits. Moving both upper and lower extremities spontaneously. Laboratory Laboratory Tests Test 07/02/17 00:33 07/02/17 00:35 Urine Color LIGHT-YELLOW Urine Turbidity CLEAR Urine pH 8.0 Urine Specific [place] 1.007 Urine Protein NEG Urine Glucose (UA) NEG Urine Ketones NEG Urine Occult Blood NEG Urine Nitrite NEG Urine Bilirubin NEG Urine Urobilinogen LESS THAN 2.0 Urine Leukocyte Esterase NEG Urine RBC LESS THAN 1 Urine WBC LESS THAN 1 Urine Squamous Epithelial Cells 4 Urine Amorphous Sediment RARE Microscopic Urinalysis Comment CULT NOT INDICATED White Blood Count 26.2 Red Blood Count 3.57 Hemoglobin 10.8 Hematocrit 31.4 Mean Corpuscular Volume 88.0 Mean Corpuscular Hemoglobin 30.2 Mean Corpuscular Hemoglobin Concent 34.3 Red Cell Distribution Width 16.6 Platelet Count 321 Mean Platelet Volume 10.0 Neutrophils (%) (Auto) 87.6 Lymphocytes (%) (Auto) 3.9 Monocytes (%) (Auto) 7.3 Eosinophils (%) (Auto) 0.6 Basophils (%) (Auto) 0.6 Neutrophils # (Auto) 23.0 Lymphocytes # (Auto) 1.0 Monocytes # (Auto) 1.9 Eosinophils # (Auto) 0.1 Basophils # (Auto) 0.2 CBC Comment DIFF FINAL Differential Comment Prothrombin Time 10.0 Prothromb Time International Ratio 1.0 Activated Partial Thromboplast Time 28.5 Blood Urea Nitrogen 19 Creatinine 0.97 Random Glucose 110 Total Protein 7.3 Albumin 3.1 Calcium Level 9.3 Alkaline Phosphatase 86 Aspartate Amino Transf (AST/SGOT) 32 Alanine Aminotransferase (ALT/SGPT) 31 Total Bilirubin 0.8 Sodium Level 135 Potassium Level 4.2 Chloride Level 98 Carbon Dioxide Level 28.0 Anion Gap 9 Estimat Glomerular Filtration Rate 55 Lipase 133 Result Diagram: 07/02/173407/02/1734 Caprini VTE Risk Assessment [place] VTE Risk Assessment: No/Low Risk (score <= 1) Caprini Risk Assessment Model Point Value = 1 Point Value = 2 Point Value = 3 Point Value = 5 Age 41-60 Minor surgery BMI > 25 kg/m2 Swollen legs Varicose veins or History of unexplained or recurrent spontaneous Oral contraceptives or hormone replacement Sepsis (< 1 month) Serious lung disease, including pneumonia (< 1 month) Abnormal pulmonary function Acute myocardial infarction Congestive heart failure (< 1 month) History of inflammatory bowel disease Medical patient at bed rest Age 61-74 Arthroscopic surgery Major open surgery (> 45 min) Laparoscopic surgery (> 45 min) Malignancy Confined to bed (> 72 hours) Immobilizing plaster cast Central venous access Age >= 75 History of VTE Family history of VTE Factor V Leiden Prothrombin [id number] Lupus anticoagulant Anticardiolipin antibodies Elevated serum homocysteine Heparin-induced thrombocytopenia Other congenital or acquired thrombophilia Stroke (< 1 month) Elective arthroplasty Hip, pelvis, or leg fracture Acute spinal cord injury (< 1 month) Prophylaxis Regimen Total Risk Factor Score Risk Level Prophylaxis Regimen 0-1 Low Early ambulation 2 Moderate Order ONE of the following: *Sequential Compression Device (SCD) *Heparin 5000 units SQ BID 3-4 Higher Order ONE of the following medications: *Heparin 5000 units SQ TID *Enoxaparin/Lovenox 40 mg SQ daily (WT < 150 kg, CrCl > 30 mL/min) *Enoxaparin/Lovenox 30 mg SQ daily (WT < 150 kg, CrCl > 10-29 mL/min) *Enoxaparin/Lovenox 30 mg SQ BID (WT < 150 kg, CrCl > 30 mL/min) AND/OR *Sequential Compression Device (SCD) 5 or more Highest Order ONE of the following medications: *Heparin 5000 units SQ TID (Preferred with Epidurals) *Enoxaparin/Lovenox 40 mg SQ daily (WT < 150 kg, CrCl > 30 mL/min) *Enoxaparin/Lovenox 30 mg SQ daily (WT < 150 kg, CrCl > 10-29 mL/min) *Enoxaparin/Lovenox 30 mg SQ BID (WT < 150 kg, CrCl > 30 mL/min) AND *Sequential Compression Device (SCD) Assessment and Plan Problem List: (1) Sepsis ICD Code: A41.9 - Sepsis Status: Acute (2) Duodenitis ICD Code: K29.80 - Duodenitis without bleeding Status: Acute (3) S/P hip replacement ICD Code: Z96.649 - Presence of unspecified artificial hip joint Assessment and Plan A/P: 1. Sepsis: WBC 26, HR 113, Source-Duodenitis, s/p Zosyn in ER, will continue w / IV Abx, follow up cultures. 2. Duodenitis: c/o crampy, abdominal pain, CT Abd/Pelvis w/ acute inflammatory process involving duodenum w/ extension towards gallbladder, unlikely cholecystitis, images reviewed by me. S/p Zosyn, will continue w/ IV Abx, analgesics/antiemetics as needed. 3. S/p Left Hip Replacement: on 06/26/[address] Sun, consult PT for continued therapy. 4. DVT Prophylaxis: Lovenox 5. Social work for dc planning as needed. 6. Case discussed w/ ER physician at length, labs/records/imaging reviewed by me. Physician Certification 2 Midnight Certification Type: Admission for Inpatient Services Order for Inpatient Services The services are ordered in accordance with Medicare regulations or non- Medicare payer requirements, as applicable. In the case of services not specified as inpatient-only, they are appropriately provided as inpatient services in accordance with the 2-midnight benchmark. Estimated LOS (days): 2 days is the estimated time the patient will need to remain in the hospital, assuming treatment plan goals are met and no additional complications. Post-Hospital Plan: Not yet determined Mazal,Edwina MD Jul 02, 2017 04:05
[2017-07-02] MEDS: MORPHINE SULFATE 2 MG/ML SYRINGE IV PUSH PRN ×5 (07:25→20:58)
[2017-07-02] MEDS: DOCUSATE SODIUM 50 MG/SENNA 8.6 MG TAB PO SCH ×2 (08:57→21:00)
[2017-07-02] MEDS: PIPERACIL-TAZO 4.5 GM PREMIX 100 ML IV SCH ×3 (08:57→20:58)
[2017-07-02] MEDS: ENOXAPARIN SODIUM 40 MG/0.4 ML SYRINGE SQ SCH ×2 (08:57→13:35)
[2017-07-02] MEDS: ONDANSETRON HCL 4 MG/2 ML VIAL IVP PRN (15:43)
[2017-07-02] MEDS: MAGNESIUM HYDROXIDE SUSP 30 ML CUP PO PRN (17:27)
[2017-07-02] MEDS: SODIUM CHLORIDE 0.9% FLUSH 10 ML FLUSH IV FLUSH SCH ×2 (17:27→20:59)
[2017-07-03] VITALS: BP 134/63; PULSE 103; RESP 18; TEMP 98.9; O2SAT 100
[2017-07-03] MEDS: MORPHINE SULFATE 2 MG/ML SYRINGE IV PUSH PRN ×3 (02:30→10:31)
[2017-07-03 03:04] LABS: AUTOMATED NEUTROPHIL # 17.1 TH/MM3 (1.8-7.7); BASOPHIL # 0.2 TH/MM3 (0-0.2); BASOPHIL % 0.8 % (0.0-2.0); EOSINOPHIL # 0.3 TH/MM3 (0-0.4); EOSINOPHIL % 1.5 % (0.0-4.0); HEMATOCRIT 26.8 % (35.0-46.0); LYMPH % 9.3 % (9.0-44.0); MEAN CORPUSCULAR HEMOGLOBIN 29.8 PG (27.0-34.0); MEAN CORPUSCULAR HGB CONC 33.5 % (32.0-36.0); MEAN PLATELET VOLUME 9.3 FL (7.0-11.0); MONOCYTE # 1.9 TH/MM3 (0-0.9); NEUT % 79.4 % (16.0-70.0); PLATELET COUNT 328 TH/MM3 (150-450); RED BLOOD COUNT 3.01 MIL/MM3 (4.00-5.30); RED CELL DISTRIBUTION WIDTH 16.4 % (11.6-17.2); WHITE BLOOD COUNT 21.5 TH/MM3 (4.0-11.0)
[2017-07-03 03:44] LABS: ALBUMIN 2.5 GM/DL (3.4-5.0); ALKALINE PHOSPHATASE 79 U/L (45-117); ALT (GPT) 24 U/L (10-53); AST (GOT) 22 U/L (15-37); BICARBONATE 28.8 MEQ/L (21.0-32.0); BLOOD UREA NITROGEN 17 MG/DL (7-18); CALCIUM 8.2 MG/DL (8.5-10.1); CHLORIDE 100 MEQ/L (98-107); CREATININE 1.01 MG/DL (0.50-1.00); GLOMERULAR FILTRATION RATE 53 ML/MIN (>89); GLUCOSE,RANDOM 103 MG/DL (74-106); SODIUM (NA) 137 MEQ/L (136-145); TOTAL BILIRUBIN ADULT 0.8 MG/DL (0.2-1.0); TOTAL PROTEIN 6.1 GM/DL (6.4-8.2)
[2017-07-03 04:00] VITALS: BP 147/64; PULSE 93; RESP 20; TEMP 98.7; O2SAT 99
[2017-07-03] MEDS: PIPERACIL-TAZO 4.5 GM PREMIX 100 ML IV SCH ×2 (04:09→08:51)
[2017-07-03] MEDS: LEVOTHYROXINE SODIUM 125 MCG TAB PO SCH (06:00)
--- NOTE | 2017-07-03 06:51 | PD.CONS ---
HPI Service Orthopedic Surgeons Consult Requested By Reason for Consult Left hip pain. Postop left total hip arthroplasty. Primary Care Physician Katie Vaughan MD Admission Diagnosis Duodenitis. Status post left hip arthroplasty Diagnoses: (1) Sepsis (2) Duodenitis (3) S/P hip replacement Chief Complaint: Postop left total hip arthroplasty. History of Present Illness This 81-year-old woman is now at postoperative day 7 from a total hip arthroplasty performed on 06/26/2017. She did well in the immediate postoperative period and was sent home with home health care through [facility]. She did well regarding her hip but had difficulty with constipation. She became somewhat hypotensive and was brought to the hospital by ambulance. Apparently she was admitted for duodenitis and sepsis according to the chart. Since then, she has had at least 2 bowel movements and is still having some difficulty with her abdomen. Her pain in her hip is still present but not excessively so. She has been up walking with the physical therapist about 20 feet. She has been up with nursing as well to bedside commode and to the chair. Past Family Social History Past Medical History PMH: Osteoarthritis and Migraine Past Surgical History PAST SURGICAL HISTORY: Bilateral Cataract Surgery, Hysterectomy, Left Hip Replacement Allergies: Coded Allergies: benzonatate (Verified Allergy, Severe, MIGRAINES, 07/01/17) ciprofloxacin (Verified Allergy, Severe, GI issues, 07/01/17) dextromethorphan (Verified Allergy, Severe, MIGRAINES, 07/01/17) red (food color) (Verified Allergy, Severe, MIGRAINES, 07/01/17) scopolamine (Verified Allergy, Severe, EDEMA, 07/01/17) adhesive tape (Verified Allergy, Unknown, Skin removed with tape, 07/01/17) cefuroxime (Verified Adverse Reaction, Severe, Diarrhea, 07/01/17) Active Ordered Medications Current Medications Medications (Trade) Dose Ordered Sig/Louie Route Start Time Stop Time Status Last Admin (NS Flush) 2 ml UNSCH PRN IV FLUSH 07/02/17 00:15 Piperacillin Sod/ Tazobactam Sod 100 ml @ 200 mls/hr Q6H IV 4/22/18 09:00 07/03/17 04:09 Sodium Chloride 1,000 ml @ 100 mls/hr Q10H IV 07/02/17 03:00 07/02/17 21:57 (NS Flush) 2 ml UNSCH PRN IV FLUSH 07/02/17 02:45 (NS Flush) 2 ml BID IV FLUSH 07/02/17 09:00 07/02/17 20:59 (Zofran Inj) 4 mg Q6H PRN IVP 07/02/17 02:45 07/02/17 15:43 (Lovenox Inj) 40 mg Q24H SQ 07/02/17 09:00 07/02/17 08:57 (Tylenol) 650 mg Q6H PRN PO 07/02/17 02:45 (Morphine Inj) 2 mg Q3H PRN IV PUSH 07/02/17 02:45 07/03/17 06:30 (Gin-Colace) 1 tab BID PO 07/02/17 09:00 07/02/17 08:57 (Milk Of Magnesia Liq) 30 ml Q12H PRN PO 07/02/17 02:45 07/02/17 17:27 (Senokot) 17.2 mg Q12H PRN PO 07/02/17 02:45 (Dulcolax Supp) 10 mg DAILY PRN RECTAL 07/02/17 02:45 (Lactulose Liq) 30 ml DAILY PRN PO 07/02/17 02:45 07/02/17 17:27 (Imitrex) 100 mg UNSCH PRN PO 07/02/17 22:30 (Synthroid) 125 mcg DAILY@0600 PO 07/03/17 06:00 07/03/17 06:00 Reported Meds & Active Scripts Active Hydrocodone-Acetamin 7.5-325 (Hydrocodone/Acetaminophen) 7.5 Mg-325 Mg Tablet 1 Tab PO Q4H PRN Aspirin DR (Aspirin) 81 Mg Tabdr 81 Mg PO BID 30 Days Reported Penlac (Nail Lacquer) Topical (Ciclopirox (Nail Lacquer) Topical) 8% Soln 1 Applic TOPICAL HS PRN Caltrate 600+D Chew (Calcium Carbonate-Vitamin D Chew) 600-400 Mg-Unit Chew 1 Tab PO DAILY Senior Tabs (Multiple Vitamins W/ Minerals) 0.4 Mg-300 Mcg-250 Mcg Tab 1 Tab PO DAILY Sumatriptan (Sumatriptan Succinate) 100 Mg Tab 100 Mg PO ONCE PRN If a satisfactory response has not been obtained at 2 hours, a second dose may be administered Cholestyramine 4 Gm/Pkt Powd 4 Gm PO DAILY 1 packet contains 4 grams of cholestyramine. Estrace (Estradiol) 1 Mg Tab 1 Mg PO DAILY Synthroid (Levothyroxine Sodium) 125 Mcg Tab 125 Mcg PO DAILY Family History PAST FAMILY HISTORY: Reviewed. No h/o DM or CAD Social History PAST SOCIAL HISTORY: Negative for alcohol, tobacco or drugs. Physical Exam Vital Signs Vital Signs Date Time Temp Pulse Resp B/P (MAP) Pulse Ox O2 Delivery O2 Flow Rate FiO2 07/03/17 00:00 98.9 103 18 134/63 (86) 100 07/02/17 20:00 98.7 108 22 120/55 (76) 97 07/02/17 20:00 100 Nasal Cannula 2.00 07/02/17 17:40 20 07/02/17 16:00 100 07/02/17 16:00 99.3 100 20 127/60 (82) 100 07/02/17 12:00 89 07/02/17 12:00 98.9 89 19 108/54 (72) 96 07/02/17 10:10 100 Room Air 07/02/17 08:00 100 Nasal Cannula 2.00 07/02/17 08:00 99.1 95 18 117/58 (77) 100 07/02/17 08:00 95 07/02/17 06:57 110 16 138/72 (94) 98 Nasal Cannula 2.00 Physical Exam She is sitting out of bed on the bedside commode when seen this morning. Her neurovascular status is intact. The dressing is dry and intact. There is a small amount of ecchymosis but no erythema nor induration nor tenderness Laboratory Laboratory Tests Test 07/02/17 08:04 07/03/17 02:20 Nasal Screen MRSA (PCR) MRSA NOT DETECTED White Blood Count 21.5 Red Blood Count 3.01 Hemoglobin 9.0 Hematocrit 26.8 Mean Corpuscular Volume 89.0 Mean Corpuscular Hemoglobin 29.8 Mean Corpuscular Hemoglobin Concent 33.5 Red Cell Distribution Width 16.4 Platelet Count 328 Mean Platelet Volume 9.3 Neutrophils (%) (Auto) 79.4 Lymphocytes (%) (Auto) 9.3 Monocytes (%) (Auto) 9.0 Eosinophils (%) (Auto) 1.5 Basophils (%) (Auto) 0.8 Neutrophils # (Auto) 17.1 Lymphocytes # (Auto) 2.0 Monocytes # (Auto) 1.9 Eosinophils # (Auto) 0.3 Basophils # (Auto) 0.2 CBC Comment DIFF FINAL Differential Comment Blood Urea Nitrogen 17 Creatinine 1.01 Random Glucose 103 Total Protein 6.1 Albumin 2.5 Calcium Level 8.2 Alkaline Phosphatase 79 Aspartate Amino Transf (AST/SGOT) 22 Alanine Aminotransferase (ALT/SGPT) 24 Total Bilirubin 0.8 Sodium Level 137 Potassium Level 3.8 Chloride Level 100 Carbon Dioxide Level 28.8 Anion Gap 8 Estimat Glomerular Filtration Rate 53 Result Diagram: 07/03/1721907/03/17219 Assessment & Plan Ortho Post Op Day #: 7 Problem List: (1) Status post total replacement of left hip ICD Codes: Z96.642 - Presence of left artificial hip joint Assessment and Plan Orthopedically stable. She is to continue postoperative care and physical therapy. Therapy orders placed. The knee immobilizer should be left in place while sleeping but should be removed when awake and out of bed. Discharge plans: Home with home health care with [facility]. An appointment was scheduled through the office. Keisha Sun MD ([place]) Jul 03, 2017 06:51
[2017-07-03 08:00] VITALS: BP 98/49; PULSE 102; RESP 18; TEMP 98.4; O2SAT 98
[2017-07-03] MEDS: SODIUM CHLOR 0.9% 1000 ML INJ 1,000 ML IV SCH (08:51)
[2017-07-03] MEDS: DOCUSATE SODIUM 50 MG/SENNA 8.6 MG TAB PO SCH ×2 (08:52→20:36)
[2017-07-03] MEDS: SODIUM CHLORIDE 0.9% FLUSH 10 ML FLUSH IV FLUSH SCH ×2 (08:52→20:36)
[2017-07-03 13:00] VITALS: BP 102/51; PULSE 92; RESP 20; TEMP 98.5; O2SAT 97
[2017-07-03] MEDS ORDERED: SUMAtriptan SUCCINATE 25 MG TAB PO PRN (15:45)
[2017-07-03 16:00] VITALS: BP 117/58; PULSE 100; RESP 24; TEMP 98.3; O2SAT 98
[2017-07-03] MEDS: ONDANSETRON HCL 4 MG/2 ML VIAL IVP PRN (16:52)
--- NOTE | 2017-07-03 17:28 | HHI.PR ---
Subjective Remarks Follow up for duodenitis. Patient is currently doing well. Sitting in her chair. Denies any chest pain, abdominal pain, shortness of breath, fever, chills. Objective Vitals Vital Signs Date Time Temp Pulse Resp B/P (MAP) Pulse Ox O2 Delivery O2 Flow Rate FiO2 07/03/17 16:00 98.3 100 24 117/58 (77) 98 07/03/17 13:00 98.5 92 20 102/51 (68) 97 07/03/17 08:00 98.4 102 18 98/49 (65) 98 07/03/17 07:00 98 Room Air 07/03/17 04:00 98.7 93 20 147/64 (91) 99 07/03/17 00:00 98.9 103 18 134/63 (86) 100 07/02/17 20:00 98.7 108 22 120/55 (76) 97 07/02/17 20:00 100 Nasal Cannula 2.00 07/02/17 17:40 20 I/O 07/02/17 07/02/17 07/02/17 07/03/17 07/03/17 07/03/17 06:59 14:59 22:59 06:59 14:59 22:59 Intake Total 1100 ml 840 ml 450 ml Balance 1100 ml 840 ml 450 ml Intake Oral 740 ml 450 ml IV Total 1100 ml 100 ml # Voids 4 2 # Bowel Movements 2 2 Result Diagram: 07/03/17 0220 07/03/17 0220 Imaging Last Impressions Abdomen/Pelvis CT 07/02/17 0013 Signed Impressions: Service Date/Time: Sunday, July 02, 2017 02:03 - CONCLUSION: 1. Acute inflammatory process involving the duodenum with secondary extension towards the gallbladder. The gallbladder is not distended. I see no calcified stones. I feel this relates to an acute duodenitis with secondary involvement of the gallbladder as opposed to acute cholecystitis with secondary involvement of the duodenum. 2. Trace amount of free fluid adjacent to the tip of the liver and gallbladder. Kevin Cerda Jr., MD Objective Remarks GENERAL: AOX3 NAD. SKIN: Warm and dry. HEAD: Normocephalic. EYES: No scleral icterus. No injection or drainage. NECK: Supple, trachea midline. No JVD or lymphadenopathy. CARDIOVASCULAR: Regular rate and rhythm without murmurs, gallops, or rubs. RESPIRATORY: Breath sounds equal bilaterally. No accessory muscle use. GASTROINTESTINAL: Abdomen soft, non-tender, nondistended. MUSCULOSKELETAL: No cyanosis, or edema. BACK: Nontender without obvious deformity. No CVA tenderness. A/P Problem List: (1) Sepsis ICD Code: A41.9 - Sepsis Status: Acute (2) Duodenitis ICD Code: K29.80 - Duodenitis without bleeding Status: Acute (3) S/P hip replacement ICD Code: Z96.649 - Presence of unspecified artificial hip joint Assessment and Plan This is a 81-year-old female with a PMH of Osteoarthritis and Migraine who presented to the ER with complaints of abdominal pain x5 days. Recent admit for Left Hip Replacement by Dr. Sun on 06/26/17. On arrival, BP 162/71, HR 113, O2 sat 98% on RA, Afebrile. WBC 26.2. Chemistry essentially unremarkable. INR 1.0. UA negative for UTI. CT Abdomen/Pelvis with acute inflammatory process involving the duodenum with secondary extension towards gallbladder, no gallbladder distention. S/p Zosyn in ER. 1. Sepsis: WBC 26, HR 113, Source-Duodenitis, s/p Zosyn in ER, will continue w / IV Abx, follow up cultures. 2. Duodenitis: c/o crampy, abdominal pain, CT Abd/Pelvis w/ acute inflammatory process involving duodenum w/ extension towards gallbladder, unlikely cholecystitis. Patient is currently on Zosyn. However, at the time of this examination, patient is doing well without any abdominal discomfort. Will switch patient to Augmentin. If she remains stable, she can be discharged in the AM. 3. S/p Left Hip Replacement: on 06/26/[address] Sun, consult PT for continued therapy. Full code. Damien Aguayo DO Jul 03, 2017 17:28
[2017-07-03 20:00] VITALS: BP 112/55; PULSE 96; RESP 19; TEMP 98.4; O2SAT 98
[2017-07-03] MEDS: AMOXICILLIN/CLAVULANATE K 875 MG TAB PO SCH (20:36)
[2017-07-03] MEDS ORDERED: ACETAMINOPHEN 500 MG CPLT PO PRN (20:45)
[2017-07-04] VITALS (10 sets, daily range): BP systolic 115–133; BP diastolic 56–65; PULSE 88–115; RESP 15–19; TEMP 97.2–98.7; O2SAT 97–99
[2017-07-04] MEDS: traMADol HCL 50 MG TAB PO PRN ×2 (00:09→12:48)
[2017-07-04] MEDS: ONDANSETRON HCL 4 MG/2 ML VIAL IVP PRN ×3 (00:24→17:13)
[2017-07-04] MEDS: LEVOTHYROXINE SODIUM 125 MCG TAB PO SCH (05:13)
--- NOTE | 2017-07-04 06:21 | PD.ORT.PN ---
Subjective Post Op Day #: 8 Subjective Remarks She is having more gastrointestinal problems orthopedic problems. She does have some hip pain when she moves. Objective Vitals Vital Signs Date Time Temp Pulse Resp B/P (MAP) Pulse Ox O2 Delivery O2 Flow Rate FiO2 07/04/17 04:35 98.0 115 19 115/56 (75) 97 07/04/17 00:36 97.7 91 18 133/62 (85) 99 07/03/17 20:00 98.4 96 19 112/55 (74) 98 07/03/17 19:00 98 Room Air 07/03/17 16:00 98.3 100 24 117/58 (77) 98 07/03/17 13:00 98.5 92 20 102/51 (68) 97 07/03/17 08:00 98.4 102 18 98/49 (65) 98 07/03/17 07:00 98 Room Air I/O 07/03/17 07/03/17 07/03/17 07/04/17 07/04/17 07/04/17 07:00 15:00 23:00 07:00 15:00 23:00 Intake Total 450 ml 1100 ml 1340 ml Output Total 350 ml Balance 450 ml 1100 ml 1340 ml -350 ml Intake Oral 450 ml 720 ml IV Total 1100 ml 620 ml Emesis 350 ml # Voids 2 6 # Bowel Movements 2 2 Result Diagram: 07/03/17 0220 07/03/17 0220 Objective Remarks She is resting supine in bed. Her neurovascular status is intact. Assessment & Plan Problem List: (1) Status post total replacement of left hip ICD Codes: Z96.642 - Presence of left artificial hip joint Plan: Continue postop care and PT. Assessment and Plan Orthopedically stable. She is to continue postoperative care and physical therapy. The knee immobilizer should be left in place while sleeping but should be removed when awake and out of bed. Discharge plans: Home with home health care with [facility]. An appointment was scheduled through the office. A consultation has been placed with the office of Juni Baires MD, her transport truck driver. Keisha Sun MD ([place]) Jul 04, 2017 06:21
[2017-07-04 06:41] LABS: BICARBONATE 29.8 MEQ/L (21.0-32.0); CALCIUM 8.7 MG/DL (8.5-10.1); CREATININE 1.02 MG/DL (0.50-1.00)
[2017-07-04 08:00] LABS: AUTOMATED NEUTROPHIL # 14.6 TH/MM3 (1.8-7.7); BASOPHIL # 0.1 TH/MM3 (0-0.2); BASOPHIL % 0.7 % (0.0-2.0); EOSINOPHIL # 0.1 TH/MM3 (0-0.4); EOSINOPHIL % 0.7 % (0.0-4.0); LYMPH % 4.5 % (9.0-44.0); LYMPHOCYTE # 0.7 TH/MM3 (1.0-4.8); MEAN CORPUSCULAR HEMOGLOBIN 32.2 PG (27.0-34.0); MEAN PLATELET VOLUME 8.8 FL (7.0-11.0); MONO % 4.7 % (0.0-8.0); MONOCYTE # 0.8 TH/MM3 (0-0.9); NEUT % 89.4 % (16.0-70.0); PLATELET COUNT 327 TH/MM3 (150-450); RED CELL DISTRIBUTION WIDTH 16.3 % (11.6-17.2); WHITE BLOOD COUNT 16.4 TH/MM3 (4.0-11.0)
[2017-07-04 08:10] LABS: MEAN CORPUSCULAR HGB CONC 36.6 % (32.0-36.0)
[2017-07-04 08:12] LABS: HEMATOCRIT 19.4 % (35.0-46.0); HEMOGLOBIN 7.1 GM/DL (11.6-15.3)
[2017-07-04] MEDS: AMOXICILLIN/CLAVULANATE K 875 MG TAB PO SCH ×3 (09:00→21:00)
[2017-07-04] MEDS: DOCUSATE SODIUM 50 MG/SENNA 8.6 MG TAB PO SCH ×2 (09:00→20:39)
[2017-07-04] MEDS ORDERED: PANTOPRAZOLE INJ 80 MG in SODIUM CHLORIDE 0.9% INJ 35 ML IV ONE (10:00)
--- NOTE | 2017-07-04 10:21 | MB ---
cc: Vic Boone MD,Juni De La Rosa MD, MD (Charles),Katie Nuñez MD DATE: 07/04/2017 REASON FOR CONSULTATION: I was asked to see this patient by Dr. Sun for evaluation of coffee-ground emesis. HISTORY OF PRESENT ILLNESS: The patient is a pleasant 81-year-old white female who, about 8 days ago, underwent a left hip replacement surgery. She did quite well and she went home for rehabilitation. She does have history of some form of bowel problem which caused loose stools. She states she was treated with Cipro a number of years ago, which "wiped out her bacterial manuela". She does take cholestyramine for this. The first day home she had some diarrhea and she had the cholestyramine but she was also taking hydrocodone and then she became extremely constipated requiring MiraLax. On the , she had increasing abdominal pain. The pain was in the upper abdomen. It is ill-defined it just hurts. There is no obvious provocative or palliative features. A CAT scan showed acute inflammatory process involving the duodenum with secondary extension towards the gallbladder, but there is no gallbladder distention. Her LFTs and lipase are normal. Hemoglobin has slowly dropped to 7.1. She reports having several episodes of coffee-ground emesis yesterday (no red blood). The stools have returned to liquid and brown, but not black. Note, the patient was taking Aleve prior to her hip surgery, but she has not been taking it since that time. She denies any heartburn issues. No melena or hematochezia. She goes between constipation and diarrhea at this time. Previously just diarrhea. Her last colonoscopy was 3 years ago and she is due later this year. REVIEW OF SYSTEMS: CONSTITUTIONAL: No weight loss, fever or chills. CARDIOPULMONARY: No chest pain, palpitations, wheezing or shortness of breath. GASTROINTESTINAL: Please see above. Otherwise unremarkable for a [id number] review of systems. PAST MEDICAL HISTORY: History of osteoarthritis, migraines. She has had serrated adenomatous colon polyps. She has migraines, hypothyroidism. She has had increased LFTs, liver biopsy done in the past. 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 PAST SURGICAL HISTORY: Includes left hip replacement, recent hysterectomy, bilateral cataract surgery, liver biopsy. ALLERGIES: Several including- BENZONATATE. CIPRO. DEXTROMETHORPHAN. RED DYE FOOD COLORING. SCOPOLAMINE. ADHESIVE TAPE. CEFUROXIME. FAMILY HISTORY: Not significant for any colon cancer. A child maybe colon polyps. SOCIAL HISTORY: Does not currently smoke or drink. MEDICATIONS: In the hospital, include: 1. Amoxicillin. 2. Tylenol 3. Ultram. 4. Synthroid. 5. Imitrex. 6. Lovenox. 7. Gin-Colace. 8. Zofran. 9. Milk of magnesia. 10. Senokot. 11. Lactulose. 12. Dulcolax. PHYSICAL EXAMINATION: VITAL SIGNS: Blood pressure is 130/60, heart rate anywhere between 90 and 110, respiration rate of 19, temperature 98.6. GENERAL: She is an elderly, white female resting comfortably at this time, in no acute distress. HEENT: Pupils equal and reactive to light. No obvious scleral icterus. Oropharynx: Shows some dental caries. No deviation of the tongue or candidal lesions. Hearing is intact. NECK: Supple. No thyromegaly or lymphadenopathy. LUNGS: Clear to auscultation and percussion. HEART: Regular rate and rhythm. No murmurs heard. ABDOMEN: Soft. Mild upper abdominal tenderness, but no rebound tenderness, organomegaly or masses. No Hinkle sign. Bowel sounds are positive in all 4 quadrants. There is no ascites. RECTAL: Not done. EXTREMITIES: No cyanosis, clubbing or edema. NEUROLOGIC: Cranial nerves II-XII are grossly intact. No gross sensorimotor deficits. Obviously I did not assess her gait. SKIN: Warm and moist and she is alert and oriented x3. LABORATORY DATA: Her hemoglobin was 10.8 on admission and then dropped to 9.0, now down to 7.1 today with a white blood count of 16,400 (it was 20,200 on admission). MCV of 88. Her BUN is 25, was elevated. Creatinine 1.02 which is elevated. Potassium 3.8, sodium 140. Her SGOT is 22, SGPT 24, alkaline phosphatase is 29, lipase 133 was normal. Her prothrombin time 10. INR 1.0, PTT 28.5. IMAGING STUDIES: A CT scan of the abdomen and pelvis on admission it was done with contrast, showed acute inflammatory process involving the duodenum with second extension towards the gallbladder. The gallbladder is not distended. There are no calcified stones. The radiologist thought this was related to acute duodenitis with secondary involvement of the gallbladder as opposed to acute cholecystitis; there was secondary involvement of the duodenum. There is a trace amount of free fluid adjacent to the tip of the liver and gallbladder, also. IMPRESSION: 1. Nausea and vomiting with coffee-ground emesis - She was taking Aleve. This may be nonsteriodal anti-inflammatory drug-related gastropathy. Also cannot rule out duodenitis, duodenal ulcers, etc. The patient is aware of differential. Chance of malignant process is lower. 2. Abnormal CAT scan, see above differential. 3. Upper abdominal pain - Could be related to nonsteriodal anti-inflammatory drug gastropathy,PUD etc. 4. Altered bowel movements - She was having loose bowel movements, then a little more constipated, more loose again - But there is no melena. The stools are brown. 5. Anemia - The hemoglobin has dropped. This may be dilutional, whether related to a gastrointestinal bleed is unclear. RECOMMENDATIONS: 1. Start a PPI. 2. Bowel rest, n.p.o. except for medications. 3. Upper endoscopy. All indications, risks, complications and benefits of endoscopy were discussed. All of her questions were answered. She understands the procedure. She understands the risk of bleeding, perforation, infection, arrhythmia and the small possibility of . My partner, Dr. Markham, will do tis tomorrow. 4. Further recommendations depending on how she does. Vic Boone MD SPP/SB , 08:59 AM , 10:19 AM [email or web address]
[2017-07-04] MEDS: ENOXAPARIN SODIUM 40 MG/0.4 ML SYRINGE SQ SCH (10:38)
[2017-07-04] MEDS: SODIUM CHLORIDE 0.9% FLUSH 10 ML FLUSH IV FLUSH SCH ×2 (10:39→20:40)
--- NOTE | 2017-07-04 11:39 | HHI.PR ---
Subjective Remarks Patient still reports abdominal pain, mostly in the midepigastric region. She had coffee-ground hematemesis overnight. No nausea vomiting this morning. No bowel movements. Has been seen by GI with plans for EGD. Objective Vitals Vital Signs Date Time Temp Pulse Resp B/P (MAP) Pulse Ox O2 Delivery O2 Flow Rate FiO2 07/04/17 10:33 Room Air 2.00 07/04/17 07:36 98.3 110 19 130/60 (83) 98 07/04/17 04:35 98.0 115 19 115/56 (75) 97 07/04/17 00:36 97.7 91 18 133/62 (85) 99 07/03/17 20:00 98.4 96 19 112/55 (74) 98 07/03/17 19:00 98 Room Air 07/03/17 16:00 98.3 100 24 117/58 (77) 98 07/03/17 13:00 98.5 92 20 102/51 (68) 97 I/O 07/03/17 07/03/17 07/03/17 07/04/17 07/04/17 07/04/17 07:00 15:00 23:00 07:00 15:00 23:00 Intake Total 450 ml 1100 ml 1340 ml 480 ml Output Total 350 ml Balance 450 ml 1100 ml 1340 ml 130 ml Intake Oral 450 ml 720 ml 480 ml IV Total 1100 ml 620 ml Emesis 350 ml # Voids 2 6 2 # Bowel Movements 2 2 1 Result Diagram: 07/04/17 0723 07/04/17 0600 Imaging Last Impressions Abdomen/Pelvis CT 07/02/17 0013 Signed Impressions: Service Date/Time: Sunday, July 02, 2017 02:03 - CONCLUSION: 1. Acute inflammatory process involving the duodenum with secondary extension towards the gallbladder. The gallbladder is not distended. I see no calcified stones. I feel this relates to an acute duodenitis with secondary involvement of the gallbladder as opposed to acute cholecystitis with secondary involvement of the duodenum. 2. Trace amount of free fluid adjacent to the tip of the liver and gallbladder. Kevin Cerda Jr., MD Objective Remarks GENERAL: This is a well-nourished, well-developed patient, in no apparent distress. CARDIOVASCULAR: Normal rate and regular rhythm without murmurs, gallops, or rubs. RESPIRATORY: Good respiratory efforts. Breath sounds equal and clear to auscultation bilaterally. GASTROINTESTINAL: Abdomen soft, significant tenderness to palpation in the midepigastric region. Normal and active bowel sounds. MUSCULOSKELETAL: Extremities without cyanosis, or edema. NEURO: Alert & Oriented x4 to person, place, time, situation. Moves all ext x4 PSYCH: Appropriate mood and affect. A/P Problem List: (1) Sepsis ICD Code: A41.9 - Sepsis Status: Acute (2) Duodenitis with bleeding ICD Code: K29.81 - Duodenitis with bleeding (3) S/P hip replacement ICD Code: Z96.649 - Presence of unspecified artificial hip joint Assessment and Plan 81-year-old female with: 1. Sepsis: WBC 26, HR 113, Source-Duodenitis, s/p Zosyn in ER, will continue w / IV Abx. -GI following with plans for EGD. -Continue IV fluid. 2. Duodenitis: c/o crampy, abdominal pain, CT Abd/Pelvis w/ acute inflammatory process involving duodenum w/ extension towards gallbladder, unlikely cholecystitis. S/p Zosyn, will continue w/ IV Abx, analgesics/ antiemetics as needed. - Keep n.p.o. - PPI drip per GI. 3. Acute blood loss anemia, secondary to above -Obtain iron studies. Repeat H&H later today. - Plan to transfuse for hemoglobin less than 7. 4. S/p Left Hip Replacement: on 06/26/[address] Sun, following. PT for continued therapy. 4. DVT Prophylaxis: Lovenox, received a dose this morning. Follow for GI bleeding, if worsening, will hold Lovenox. Flo Bhandari MD Jul 04, 2017 11:39
[2017-07-04] MEDS: PANTOPRAZOLE INJ 80 MG in SODIUM CHLORIDE 0.9% INJ 100 ML IV SCH ×2 (12:15→22:40)
[2017-07-04 14:21] LABS: HEMATOCRIT 19.2 % (35.0-46.0); HEMOGLOBIN 6.5 GM/DL (11.6-15.3)
[2017-07-04] MEDS ORDERED: FUROSEMIDE 20 MG/2 ML VIAL IV PUSH ONE (14:30)
[2017-07-04] MEDS ORDERED: SODIUM CHLOR 0.9% 250 ML INJ 250 ML IV ONE (14:30)
[2017-07-04 14:38] LABS: IRON (FE) 100 MCG/DL (50-170)
[2017-07-04 15:03] LABS: % SATURATION IRON PROFILE 61.6 % (20-50); FERRITIN 1233 NG/ML (8-252); TOTAL IRON BINDING CAPACITY 162 MCG/DL (250-450)
[2017-07-04 15:08] LABS: FOLATE GREATER THAN 20.0 NG/ML (3.1-17.5)
[2017-07-04] MEDS: MORPHINE SULFATE 2 MG/ML SYRINGE IV PRN (18:09)
[2017-07-04] MEDS: SUMAtriptan SUCCINATE 50 MG TAB PO PRN ×2 (22:41)
[2017-07-04] MEDS ORDERED: CHLORHEXIDINE GLUCONATE 2 % 1 PACK (2 CLOTHS) TOPICAL PRN (22:45)
[2017-07-04] MEDS ORDERED: SODIUM CHLORID 0.9% 500 ML IV PRN (22:45)
[2017-07-04] MEDS ORDERED: POVIDONE IODINE 5% (ANTISEPSIS KIT) 4 APPLICATIONS EACH NARE PRN (22:45)
[2017-07-04] MEDS ORDERED: LACTATED RINGER'S 1000 ML IV PRN (22:45)
[2017-07-05 00:10] VITALS: BP 133/63; PULSE 99; RESP 17; TEMP 98.1; O2SAT 97
[2017-07-05 01:45] VITALS: BP 151/65; PULSE 96; RESP 16; TEMP 97.3; O2SAT 96
[2017-07-05 04:45] VITALS: BP 137/61; PULSE 97; RESP 16; TEMP 98.5; O2SAT 99
[2017-07-05] MEDS: LEVOTHYROXINE SODIUM 125 MCG TAB PO SCH (06:01)
[2017-07-05] MEDS: MORPHINE SULFATE 2 MG/ML SYRINGE IV PRN (06:08)
[2017-07-05 07:07] LABS: HEMATOCRIT 25.4 % (35.0-46.0); HEMOGLOBIN 8.7 GM/DL (11.6-15.3); MEAN CELL VOLUME 87.1 FL (80.0-100.0); MEAN CORPUSCULAR HGB CONC 34.4 % (32.0-36.0); MEAN PLATELET VOLUME 8.9 FL (7.0-11.0); PLATELET COUNT 323 TH/MM3 (150-450); RED BLOOD COUNT 2.91 MIL/MM3 (4.00-5.30); RED CELL DISTRIBUTION WIDTH 16.3 % (11.6-17.2); WHITE BLOOD COUNT 13.4 TH/MM3 (4.0-11.0)
--- NOTE | 2017-07-05 07:07 | PD.ORT.PN ---
Subjective Post Op Day #: 9 Subjective Remarks She is having more gastrointestinal problems orthopedic problems. She does have some hip pain when she moves. Distance Walked Therapy was held because of her gastrointestinal problems. Objective Vitals Vital Signs Date Time Temp Pulse Resp B/P (MAP) Pulse Ox O2 Delivery O2 Flow Rate FiO2 07/05/17 04:45 98.5 97 16 137/61 (86) 99 07/05/17 01:45 97.3 96 16 151/65 96 07/05/17 00:10 98.1 99 17 133/63 (86) 97 07/04/17 23:23 98.0 88 18 132/60 98 07/04/17 23:00 97.6 96 18 130/60 98 07/04/17 20:30 98.1 99 16 129/65 98 07/04/17 18:12 97.7 106 15 133/60 98 07/04/17 17:43 97.5 111 15 132/60 99 07/04/17 15:30 98.7 96 19 117/56 (76) 98 07/04/17 11:50 97.2 99 19 129/59 (82) 97 07/04/17 10:33 Room Air 2.00 07/04/17 07:36 98.3 110 19 130/60 (83) 98 I/O 07/04/17 07/04/17 07/04/17 07/05/17 07/05/17 07/05/17 07:00 15:00 23:00 07:00 15:00 23:00 Intake Total 480 ml 410 ml 780 ml Output Total 350 ml Balance 130 ml 410 ml 780 ml Intake Oral 480 ml 360 ml Packed Cells 400 ml 400 ml Blood Product IV Normal Saline Flush 10 ml 20 ml Emesis 350 ml # Voids 2 4 # Bowel Movements 1 3 1 Result Diagram: 07/04/17 1359 07/04/17 0600 Objective Remarks She is resting supine in bed. Her neurovascular status is intact. Assessment & Plan Ortho Post Op Day #: 9 Problem List: (1) Status post total replacement of left hip ICD Codes: Z96.642 - Presence of left artificial hip joint Plan: Continue postop care and PT. Assessment and Plan Orthopedically stable. She is to continue postoperative care and physical therapy. The knee immobilizer should be left in place while sleeping but should be removed when awake and out of bed. Discharge plans: Home with home health care with [facility]. An appointment was scheduled through the office. Keisha Sun MD ([place]) Jul 05, 2017 07:07
[2017-07-05 07:30] VITALS: BP 129/62; PULSE 89; RESP 19; TEMP 98.2; O2SAT 98
[2017-07-05 07:41] LABS: BICARBONATE 27.9 MEQ/L (21.0-32.0); CALCIUM 8.3 MG/DL (8.5-10.1); CREATININE 1.13 MG/DL (0.50-1.00)
[2017-07-05] MEDS: AMOXICILLIN/CLAVULANATE K 875 MG TAB PO SCH ×3 (08:46→20:49)
[2017-07-05] MEDS: SODIUM CHLORIDE 0.9% FLUSH 10 ML FLUSH IV FLUSH SCH ×2 (08:46→20:50)
[2017-07-05] MEDS: LACTATED RINGER'S 1000 ML INJ 1,000 ML IV SCH ×2 (08:54→19:45)
--- NOTE | 2017-07-05 08:54 | EKG ---
Date Performed: 07/04/2017 Time Performed: 22:49:09 PTAGE: 81 years EKG: Sinus rhythm NONSPECIFIC T-WAVE ABNORMALITY BORDERLINE ECG PREVIOUS TRACING : 06/16/2017 09.47 DOCTOR: Jonathan Jackson Interpretating Date/Time 07/05/2017 08:53:15
--- NOTE | 2017-07-05 10:13 | HHI.PR ---
Subjective Remarks Patient reports improvement and epigastric pain. She had melena earlier this morning. Objective Vitals Vital Signs Date Time Temp Pulse Resp B/P (MAP) Pulse Ox O2 Delivery O2 Flow Rate FiO2 07/05/17 07:30 98.2 89 19 129/62 (84) 98 07/05/17 06:13 20 07/05/17 04:45 98.5 97 16 137/61 (86) 99 07/05/17 01:45 97.3 96 16 151/65 96 07/05/17 00:10 98.1 99 17 133/63 (86) 97 07/04/17 23:23 98.0 88 18 132/60 98 07/04/17 23:00 97.6 96 18 130/60 98 07/04/17 20:30 98.1 99 16 129/65 98 07/04/17 18:12 97.7 106 15 133/60 98 07/04/17 17:43 97.5 111 15 132/60 99 07/04/17 15:30 98.7 96 19 117/56 (76) 98 07/04/17 11:50 97.2 99 19 129/59 (82) 97 07/04/17 10:33 Room Air 2.00 I/O 07/04/17 07/04/17 07/04/17 07/05/17 07/05/17 07/05/17 07:00 15:00 23:00 07:00 15:00 23:00 Intake Total 480 ml 410 ml 1753 ml Output Total 350 ml Balance 130 ml 410 ml 1753 ml Intake Oral 480 ml 360 ml IV Total 173 ml Packed Cells 400 ml 1200 ml Blood Product IV Normal Saline Flush 10 ml 20 ml Emesis 350 ml # Voids 2 4 # Bowel Movements 1 3 1 Result Diagram: 07/05/17 0508 07/05/17 0508 Objective Remarks GENERAL: This is a well-nourished, well-developed patient, in no apparent distress. CARDIOVASCULAR: Normal rate and regular rhythm without murmurs, gallops, or rubs. RESPIRATORY: Good respiratory efforts. Breath sounds equal and clear to auscultation bilaterally. GASTROINTESTINAL: Abdomen soft, significant tenderness to palpation in the midepigastric region. Normal and active bowel sounds. MUSCULOSKELETAL: Extremities without cyanosis, or edema. NEURO: Alert & Oriented x4 to person, place, time, situation. Moves all ext x4 PSYCH: Appropriate mood and affect. A/P Problem List: (1) Sepsis ICD Code: A41.9 - Sepsis Status: Acute (2) Duodenitis with bleeding ICD Code: K29.81 - Duodenitis with bleeding (3) S/P hip replacement ICD Code: Z96.649 - Presence of unspecified artificial hip joint Assessment and Plan 81-year-old female with: 1. Sepsis secondary to duodenitis: WBC 26, HR 113, Source-Duodenitis, s/p Zosyn in ER, will continue w/ IV Abx. -GI following with plans for EGD today. -Continue IV fluid. 2. Duodenitis: c/o crampy, abdominal pain, CT Abd/Pelvis w/ acute inflammatory process involving duodenum w/ extension towards gallbladder, unlikely cholecystitis. S/p Zosyn, will continue w/ IV Abx, analgesics/ antiemetics as needed. - Keep n.p.o. - PPI drip per GI. 3. Acute blood loss anemia, secondary to above -Status post transfusion of 2 units of PRBC - Continue to follow H&H. 4. S/p Left Hip Replacement: on 06/26/[address] Sun, following. PT for continued therapy. 4. DVT Prophylaxis: SCDs. Lovenox on hold secondary to GI bleeding 5. Hypokalemia: Replace and monitor Flo Bhandari MD Jul 05, 2017 10:13
[2017-07-05] MEDS: traMADol HCL 50 MG TAB PO PRN ×2 (11:35→22:00)
[2017-07-05 11:40] VITALS: BP 120/59; PULSE 103; RESP 19; TEMP 98.2; O2SAT 97
[2017-07-05] MEDS ORDERED: PROPOFOL 200 MG/20 ML AMP IV ONE (12:00)
[2017-07-05] MEDS ORDERED: LIDOCAINE HCL 1% PF 5 ML SYRINGE OTHER ONE (12:00)
--- NOTE | 2017-07-05 16:02 | GIPROC ---
[facility] [address] [facility]. [facility], [id number] EGD PROCEDURE REPORT EXAM DATE: 07/05/2017 PATIENT NAME: Cecy Mcqueen MR #: [id number] BIRTHDATE: 1935 ATTENDING: Florentin Markham MD ORDER #: [id number] PROFESSOR OF EARLY CHILDHOOD EDUCATION: Armando Daniels and Roseanna Padgett STATUS: inpatient INDICATIONS: The patient is a 81 yr old female here for an EGD due to melena PROCEDURE PERFORMED: EGD w/ biopsy MEDICATIONS: Per Anesthesia and None. TOPICAL ANESTHETIC: none CONSENT: The patient understands the risks and benefits of the procedure and understands that these risks include, but are not limited to: sedation, allergic reaction, infection, perforation and/or bleeding. Alternative means of evaluation and treatment include, among others: physical exam, x-rays, and/or surgical intervention. The patient elects to proceed with this endoscopic procedure. medical equipment was checked for proper function. Hand hygiene and appropriate measures for infection prevention was taken. After the risks, benefits and alternatives of the procedure were thoroughly explained, Informed consent was verified, confirmed and timeout was successfully executed by the treatment team. The patient was anesthetized with topical anesthesia and the Pentax EG-[id number] endoscope was introduced through the mouth and advanced to the second portion of the duodenum. Retroflexion was performed and was normal The gastroscope was then slowly withdrawn and removed. ESOPHAGUS: The mucosa of the esophagus appeared normal. STOMACH: The mucosa of the stomach appeared normal. Multiple biopsies were performed using cold forceps. Sample obtained for helicobacter pylori testing. DUODENUM: A single non-bleeding and deep ulcer measuring 7 x 7mm in size was found in the 2nd part of the duodenum. Post-bulbar area. ADVERSE EVENTS: There were no complications. IMPRESSIONS: 1. The esophagus appeared normal 2. The mucosa of the stomach appeared normal; multiple biopsies were performed to R/O H. Pylori 3. Single ulcer measuring 7 x 7mm in size was found in the 2nd part of the duodenum 4. Retroflexion was performed and was normal RECOMMENDATIONS: 1. Continue PPI 2. If rebleeds rec arteriography for possible embolization posterior duodenal artery. PATIENT CONDITION: stable DISPOSITION: Inpatient REPEAT EXAM: NONE Florentin Markham MD eSigned: Florentin Markham MD 07/05/2017 4:02 PM cc: PATIENT NAME: Cecy Mcqueen MR#: [id number]
[2017-07-05] MEDS: SUCRALFATE 1 GM TAB PO SCH ×2 (17:34→20:49)
[2017-07-05] MEDS: SUMAtriptan SUCCINATE 50 MG TAB PO PRN (22:01)
[2017-07-05] MEDS: PANTOPRAZOLE INJ 80 MG in SODIUM CHLORIDE 0.9% INJ 100 ML IV SCH (23:13)
[2017-07-06] VITALS (9 sets, daily range): BP systolic 109–128; BP diastolic 53–58; PULSE 77–99; RESP 18; TEMP 97.5–98.1; O2SAT 95–100
[2017-07-06] MEDS: MORPHINE SULFATE 2 MG/ML SYRINGE IV PRN ×3 (04:58→16:58)
[2017-07-06] MEDS: LEVOTHYROXINE SODIUM 125 MCG TAB PO SCH (04:58)
--- NOTE | 2017-07-06 07:38 | PD.ORT.PN ---
Subjective Post Op Day #: 10 Subjective Remarks She is doing fairly well. She has less problem with her abdomen now. Her hip is not really very painful at this time. She is currently complaining of pain going down the leg and across the top of the foot. She has decreased sensation on the top of the foot with paresthesias into the foot on the dorsum. Distance Walked 20 feet with PT. Objective Vitals Vital Signs Date Time Temp Pulse Resp B/P (MAP) Pulse Ox O2 Delivery O2 Flow Rate FiO2 07/06/17 06:53 98.0 77 18 114/56 (75) 95 07/06/17 00:00 98.0 97 18 128/58 (81) 99 07/05/17 16:00 98.0 101 18 123/65 (84) 98 07/05/17 11:40 98.2 103 19 120/59 (79) 97 I/O 07/05/17 07/05/17 07/05/17 07/06/17 07/06/17 07/06/17 07:00 15:00 23:00 07:00 15:00 23:00 Intake Total 1753 ml 0 ml 100 ml Balance 1753 ml 0 ml 100 ml Intake Oral 360 ml 0 ml IV Total 173 ml Packed Cells 1200 ml Blood Product IV Normal Saline Flush 20 ml Other 100 ml # Voids 4 3 # Bowel Movements 1 2 Result Diagram: 07/05/17 0508 07/05/17 0508 Objective Remarks She is out of bed in the chair. The dressing is dry and intact. Her neurovascular status is essentially intact. Assessment & Plan Ortho Post Op Day #: 10 Problem List: (1) Status post total replacement of left hip ICD Codes: Z96.642 - Presence of left artificial hip joint Plan: Continue postop care and PT. Assessment and Plan Orthopedically stable. She is to continue postoperative care and physical therapy. The knee immobilizer should be left in place while sleeping but should be removed when awake and out of bed. Discharge plans: Home with home health care with [facility]. An appointment was scheduled through the office. X-rays of the lumbar spine will be done at this time. Treatment of the left leg pain will be dependent upon this. I would hesitate to give her oral steroids as I would normally do because of her GI bleed. Keisha Sun MD ([place]) Jul 06, 2017 07:38
[2017-07-06 08:59] LABS: HEMATOCRIT 23.3 % (35.0-46.0); HEMOGLOBIN 8.1 GM/DL (11.6-15.3); MEAN CELL VOLUME 87.9 FL (80.0-100.0); MEAN CORPUSCULAR HEMOGLOBIN 30.6 PG (27.0-34.0); MEAN CORPUSCULAR HGB CONC 34.8 % (32.0-36.0); MEAN PLATELET VOLUME 8.6 FL (7.0-11.0); PLATELET COUNT 369 TH/MM3 (150-450); RED BLOOD COUNT 2.65 MIL/MM3 (4.00-5.30); RED CELL DISTRIBUTION WIDTH 15.7 % (11.6-17.2); WHITE BLOOD COUNT 11.9 TH/MM3 (4.0-11.0)
[2017-07-06] MEDS: SUCRALFATE 1 GM TAB PO SCH ×4 (09:19→20:14)
[2017-07-06] MEDS: SODIUM CHLORIDE 0.9% FLUSH 10 ML FLUSH IV FLUSH SCH ×2 (09:19→20:23)
[2017-07-06] MEDS: AMOXICILLIN/CLAVULANATE K 875 MG TAB PO SCH ×2 (09:19→20:14)
[2017-07-06 09:27] LABS: BICARBONATE 28.6 MEQ/L (21.0-32.0); CALCIUM 8.5 MG/DL (8.5-10.1); CREATININE 0.88 MG/DL (0.50-1.00)
[2017-07-06] MEDS: traMADol HCL 50 MG TAB PO PRN ×2 (09:48→20:14)
--- NOTE | 2017-07-06 11:06 | RADRPT ---
EXAM DATE/TIME: 07/06/2017 10:45 [place] COMPARISON: No previous studies available for comparison. INDICATIONS : Left lumbar radiculopathy; left leg pain. MEDICAL HISTORY : None. SURGICAL HISTORY : Left total hip. ENCOUNTER: Initial ACUITY: 1 week PAIN SCORE: 5/10 LOCATION: Lumbar spine. FINDINGS: There are five non-rib bearing vertebral bodies. There is a lower leftward scoliosis. The vertebral bodies are in normal alignment without evidence of subluxation or scoliosis. The disc spaces are rudy ntained. The posterior elements are intact without evidence of spondylolysis. The pedicles are inta ct. Bony mineralization is normal. No fracture is identified. CONCLUSION: Unremarkable examination of the lumbar spine except for left lower scoliosis. Jonathan Alcala MD on July 06, 2017 at 11:03 Board Certified Radiologist. This report was verified electronically.
[2017-07-06] MEDS: PANTOPRAZOLE INJ 80 MG in SODIUM CHLORIDE 0.9% INJ 100 ML IV SCH (11:28)
--- NOTE | 2017-07-06 12:08 | HHI.GIFU ---
GI Follow-up Note Consult Follow-up Subjective: Patient c/o low back and left foot pain. No abd pain. Having diarrhea but stools no longer black. I discussed again with her and her the findings of a DU and treatment plans. Objective: PHYSICAL EXAMINATION: Vitals signs stable No fever CHEST: Breathing non-labored ABDOMEN: Soft, nondistended, nontender; SKIN: warm and dry LEAD INSPECTOR: alert and oriented times three. Available Data (labs, X- Rays, Procedues) : Laboratory Tests Test 07/04/17 06:00 07/04/17 07:23 07/04/17 13:59 07/05/17 05:08 Blood Urea Nitrogen 25 MG/DL (7-18) 34 MG/DL (7-18) Creatinine 1.02 MG/DL (0.50-1.00) 1.13 MG/DL (0.50-1.00) Random Glucose 136 MG/DL (74-106) Estimat Glomerular Filtration Rate 52 ML/MIN (>89) 46 ML/MIN (>89) White Blood Count 16.4 TH/MM3 (4.0-11.0) 13.4 TH/MM3 (4.0-11.0) Red Blood Count 2.20 MIL/MM3 (4.00-5.30) 2.91 MIL/MM3 (4.00-5.30) Hemoglobin 7.1 GM/DL (11.6-15.3) 6.5 GM/DL (11.6-15.3) 8.7 GM/DL (11.6-15.3) Hematocrit 19.4 % (35.0-46.0) 19.2 % (35.0-46.0) 25.4 % (35.0-46.0) Mean Corpuscular Hemoglobin Concent 36.6 % (32.0-36.0) Neutrophils (%) (Auto) 89.4 % (16.0-70.0) Lymphocytes (%) (Auto) 4.5 % (9.0-44.0) Neutrophils # (Auto) 14.6 TH/MM3 (1.8-7.7) Lymphocytes # (Auto) 0.7 TH/MM3 (1.0-4.8) Total Iron Binding Capacity 162 MCG/DL (250-450) Percent Iron Saturation 61.6 % (20-50) Ferritin 1233 NG/ML (8-252) Vitamin B12 Level 1052 PG/ML (193-986) Folate GREATER THAN 20.0 NG/ML Calcium Level 8.3 MG/DL (8.5-10.1) Potassium Level 3.2 MEQ/L (3.5-5.1) Test 07/06/17 07:36 White Blood Count 11.9 TH/MM3 (4.0-11.0) Red Blood Count 2.65 MIL/MM3 (4.00-5.30) Hemoglobin 8.1 GM/DL (11.6-15.3) Hematocrit 23.3 % (35.0-46.0) Blood Urea Nitrogen 25 MG/DL (7-18) Potassium Level 3.1 MEQ/L (3.5-5.1) Estimat Glomerular Filtration Rate 62 ML/MIN (>89) ASSESSMENT/PLAN: 1. Posterior duodenal ulcer with recent bleed-will advance diet and change PPI to po when current drip out. Advised strict avoidance of ASA & NSAIDS. will f/u antral bx for H. Pylori. 2. Diarrhea-check for C.Diff if not done It was a pleasure seeing Cecy Mcqueen. Thank you for this consult. Entered by: Florentin Bearden MD Jul 06, 2017 12:08
[2017-07-06] MEDS: SUMAtriptan SUCCINATE 50 MG TAB PO PRN (15:09)
[2017-07-06] MEDS: LACTATED RINGER'S 1000 ML INJ 1,000 ML IV SCH ×2 (15:45→20:23)
--- NOTE | 2017-07-06 16:18 | HHI.PR ---
Subjective Remarks Patient reports left lower leg pain. Having loose stool but no melena or blood noted. No abdominal pain. Objective Vitals Vital Signs Date Time Temp Pulse Resp B/P (MAP) Pulse Ox O2 Delivery O2 Flow Rate FiO2 07/06/17 15:41 98.1 99 18 120/55 (76) 97 07/06/17 13:19 100 21 07/06/17 11:35 97.5 98 18 127/57 (80) 100 07/06/17 11:23 97 07/06/17 07:37 97.8 96 18 109/55 (73) 99 07/06/17 06:53 98.0 77 18 114/56 (75) 95 07/06/17 00:00 98.0 97 18 128/58 (81) 99 I/O 07/05/17 07/05/17 07/05/17 07/06/17 07/06/17 07/06/17 07:00 15:00 23:00 07:00 15:00 23:00 Intake Total 1753 ml 0 ml 100 ml 850 ml Balance 1753 ml 0 ml 100 ml 850 ml Intake Oral 360 ml 0 ml 850 ml IV Total 173 ml Packed Cells 1200 ml Blood Product IV Normal Saline Flush 20 ml Other 100 ml # Voids 4 3 3 # Bowel Movements 1 2 1 2 Result Diagram: 07/06/17 0736 07/06/17 0736 Objective Remarks GENERAL: This is a well-nourished, well-developed patient, in no apparent distress. CARDIOVASCULAR: Normal rate and regular rhythm without murmurs, gallops, or rubs. RESPIRATORY: Good respiratory efforts. Breath sounds equal and clear to auscultation bilaterally. GASTROINTESTINAL: Abdomen soft, mild tenderness to palpation in the midepigastric region. Normal and active bowel sounds. MUSCULOSKELETAL: Extremities without cyanosis, or edema. NEURO: Alert & Oriented x4 to person, place, time, situation. Moves all ext x4 PSYCH: Appropriate mood and affect. A/P Problem List: (1) Sepsis ICD Code: A41.9 - Sepsis Status: Acute (2) Duodenitis with bleeding ICD Code: K29.81 - Duodenitis with bleeding (3) S/P hip replacement ICD Code: Z96.649 - Presence of unspecified artificial hip joint Assessment and Plan 81-year-old female with: 1. Sepsis secondary to duodenitis: WBC 26, HR 113, Source-Duodenitis, s/p Zosyn in ER, will continue w/ IV Abx. -GI following EGD revealed Posterior duodenal ulcer with recent bleed -Avoid NSAIDs. Continue PPI - continue Augmentin for 3 more days Duodenitis: c/o crampy, abdominal pain, CT Abd/Pelvis w/ acute inflammatory process involving duodenum w/ extension towards gallbladder, unlikely cholecystitis. S/p Zosyn, continue Augmentin for 3 more days -Advance diet as tolerated. Acute blood loss anemia, secondary to above -Status post transfusion of 2 units of PRBC -H&H still trending down. She may need further blood transfusion. Repeat H&H in a.m. S/p Left Hip Replacement: on 06/26/[address] Sun, following. PT for continued therapy. Left leg pain: - May be related to osteoarthritis. Orthopedics following and have ordered x- ray of her lumbar spine. DVT Prophylaxis: SCDs. Lovenox on hold secondary to GI bleeding Hypokalemia: Replace and monitor Flo Bhandari MD Jul 06, 2017 16:18
[2017-07-07] VITALS (12 sets, daily range): BP systolic 94–144; BP diastolic 46–62; PULSE 18–115; RESP 17–18; TEMP 97.7–98.9; O2SAT 91–100
[2017-07-07] MEDS: LEVOTHYROXINE SODIUM 125 MCG TAB PO SCH (05:46)
[2017-07-07] MEDS: SUMAtriptan SUCCINATE 50 MG TAB PO PRN ×2 (05:48→17:19)
[2017-07-07 06:12] LABS: HEMATOCRIT 22.1 % (35.0-46.0); HEMOGLOBIN 7.9 GM/DL (11.6-15.3); MEAN CELL VOLUME 86.4 FL (80.0-100.0); MEAN CORPUSCULAR HEMOGLOBIN 30.8 PG (27.0-34.0); MEAN CORPUSCULAR HGB CONC 35.6 % (32.0-36.0); MEAN PLATELET VOLUME 8.2 FL (7.0-11.0); PLATELET COUNT 394 TH/MM3 (150-450); RED BLOOD COUNT 2.56 MIL/MM3 (4.00-5.30); RED CELL DISTRIBUTION WIDTH 15.8 % (11.6-17.2); WHITE BLOOD COUNT 12.1 TH/MM3 (4.0-11.0)
--- NOTE | 2017-07-07 06:16 | PD.ORT.PN ---
Subjective Post Op Day #: 11 Subjective Remarks She is doing better. She has less difficulty with her abdomen. Her hip is not really very painful. She still has some pain into both feet but more on the left. Distance Walked 60 feet with PT. Objective Vitals Vital Signs Date Time Temp Pulse Resp B/P (MAP) Pulse Ox O2 Delivery O2 Flow Rate FiO2 07/06/17 23:04 97.9 86 18 124/58 (80) 98 07/06/17 19:55 21 07/06/17 19:27 98.0 98 18 109/53 (71) 100 07/06/17 15:41 98.1 99 18 120/55 (76) 97 07/06/17 13:19 100 21 07/06/17 11:35 97.5 98 18 127/57 (80) 100 07/06/17 11:23 97 07/06/17 07:37 97.8 96 18 109/55 (73) 99 07/06/17 06:53 98.0 77 18 114/56 (75) 95 I/O 07/06/17 07/06/17 07/06/17 07/07/17 07/07/17 07/07/17 07:00 15:00 23:00 07:00 15:00 23:00 Intake Total 850 ml Balance 850 ml Intake Oral 850 ml # Voids 3 # Bowel Movements 1 2 Result Diagram: 07/06/17 0736 07/06/17 0736 Imaging Some degenerative changes are noted in the x-rays as well as the CT scan. Last 72 hours Impressions Lumbar Spine X-Ray 07/06/17 0000 Signed Impressions: Service Date/Time: June 10:45 - CONCLUSION: Unremarkable examination of the lumbar spine except for left lower scoliosis. Jonathan Alcala MD Objective Remarks She is resting comfortably, supine in bed. The dressing is dry and intact. Her neurovascular status is essentially intact. Specifically, the strength in the lower extremities is relatively normal. Assessment & Plan Ortho Post Op Day #: 11 Problem List: (1) Status post total replacement of left hip ICD Codes: Z96.642 - Presence of left artificial hip joint Plan: Continue postop care and PT. Assessment and Plan Orthopedically stable. She is to continue postoperative care and physical therapy. The knee immobilizer should be left in place while sleeping but should be removed when awake and out of bed. Discharge plans: Home with home health care with [facility]. An appointment was scheduled through the office. I would hesitate to give her oral steroids as I would normally do because of her GI bleed. Keisha Sun MD ([place]) Jul 07, 2017 06:16
[2017-07-07] MEDS: SUCRALFATE 1 GM TAB PO SCH ×4 (08:07→20:55)
[2017-07-07] MEDS: PANTOPRAZOLE SOD 40 MG DELAYED RELEASE TAB PO SCH ×2 (08:07→20:55)
[2017-07-07] MEDS: AMOXICILLIN/CLAVULANATE K 875 MG TAB PO SCH ×2 (08:07→20:55)
[2017-07-07] MEDS: SODIUM CHLORIDE 0.9% FLUSH 10 ML FLUSH IV FLUSH SCH ×2 (08:08→20:55)
[2017-07-07] MEDS: traMADol HCL 50 MG TAB PO PRN (09:24)
[2017-07-07] MEDS: MAGNESIUM HYDROXIDE SUSP 30 ML CUP PO PRN (09:26)
--- NOTE | 2017-07-07 10:16 | HHI.GIFU ---
GI Follow-up Note Consult Follow-up Subjective: Patient sitting in chair. No BM so stool sample not collected. Says she took some MOM. Kate diet and no abd pain or nausea. Still has some lower back discomfort. Hgb 7.9 but BUN also decreasing with rehydration. Objective: PHYSICAL EXAMINATION: Vitals signs stable No fever Available Data (labs, X- Rays, Procedues) : Laboratory Tests Test 07/04/17 13:59 07/05/17 05:08 07/06/17 07:36 07/07/17 05:36 Hemoglobin 6.5 GM/DL (11.6-15.3) 8.7 GM/DL (11.6-15.3) 8.1 GM/DL (11.6-15.3) 7.9 GM/DL (11.6-15.3) Hematocrit 19.2 % (35.0-46.0) 25.4 % (35.0-46.0) 23.3 % (35.0-46.0) 22.1 % (35.0-46.0) Total Iron Binding Capacity 162 MCG/DL (250-450) Percent Iron Saturation 61.6 % (20-50) Ferritin 1233 NG/ML (8-252) Vitamin B12 Level 1052 PG/ML (193-986) Folate GREATER THAN 20.0 NG/ML White Blood Count 13.4 TH/MM3 (4.0-11.0) 11.9 TH/MM3 (4.0-11.0) 12.1 TH/MM3 (4.0-11.0) Red Blood Count 2.91 MIL/MM3 (4.00-5.30) 2.65 MIL/MM3 (4.00-5.30) 2.56 MIL/MM3 (4.00-5.30) Blood Urea Nitrogen 34 MG/DL (7-18) 25 MG/DL (7-18) Creatinine 1.13 MG/DL (0.50-1.00) Calcium Level 8.3 MG/DL (8.5-10.1) Potassium Level 3.2 MEQ/L (3.5-5.1) 3.1 MEQ/L (3.5-5.1) Estimat Glomerular Filtration Rate 46 ML/MIN (>89) 62 ML/MIN (>89) ASSESSMENT/PLAN: 1. DU w/ bleed-stable. Advised her again to stay on a PPI daily and Carafate QID before meals and at bedtime for at least 2 months but will have her f/u with Dr Baires in about a month. Gastric bx still pending. 2.Diarrhea-resolved. She uses cholestyramine at home on a regular basis for chronic diarrhea. OK from GI standpoint to discharge home. She has been advised to avoid all NSAIDS and seek medical attention if starts bleeding again. Will sign off. It was a pleasure seeing Cecy Mcqueen. Thank you for this consult. Entered by: Florentin Bearden MD Jul 07, 2017 10:16
[2017-07-07] MEDS: MORPHINE SULFATE 2 MG/ML SYRINGE IV PRN (11:17)
[2017-07-07] MEDS: ONDANSETRON HCL 4 MG/2 ML VIAL IVP PRN (11:25)
[2017-07-07] MEDS ORDERED: PANT40TA3 PO (11:56)
[2017-07-07] MEDS ORDERED: CARA1TAB6 PO (11:56)
--- NOTE | 2017-07-07 12:00 | HHI.DCPOC ---
Discharge Care Plan Diagnosis: (1) Sepsis (2) Duodenitis with bleeding (3) S/P hip replacement (4) Primary osteoarthritis of left hip Goals to Promote Your Health * To prevent worsening of your condition and complications * To maintain your health at the optimal level Directions to Meet Your Goals Take your medications as prescribed Follow your dietary instruction Follow activity as directed Keep your appointments as scheduled Take your immunizations and boosters as scheduled If your symptoms worsen call your PCP, if no PCP go to Urgent Care Center or Emergency Room Smoking is Dangerous to Your Health. Avoid second hand smoke Call the 24-hour hour crisis hotline for domestic abuse at Flo Bhandari MD Jul 07, 2017 12:00
--- NOTE | 2017-07-07 12:01 | HHI.DS ---
Discharge Summary Admission Date Jul 02, 2017 at 02:35 Admitting Diagnosis Duodenitis. Status post left hip arthroplasty (1) Sepsis ICD Code: A41.9 - Sepsis Status: Acute (2) Duodenitis with bleeding ICD Code: K29.81 - Duodenitis with bleeding (3) S/P hip replacement ICD Code: Z96.649 - Presence of unspecified artificial hip joint Brief History - From Admission This is a 81-year-old female with a PMH of Osteoarthritis and Migraine who presented to the ER with complaints of abdominal pain x5 days. Recent admit for Left Hip Replacement by Dr. Sun on 06/26/17, states has been doing well post-op but having c/o abdominal pain, taking pain medication w/ minimal improvement. Notes diffuse abdominal pain, cramping, intermittent, moderate to severe, 8/10, no associated nausea or vomiting. Denies fever or chills. On arrival, BP 162/71, HR 113, O2 sat 98% on RA, Afebrile. WBC 26.2. Chemistry essentially unremarkable. INR 1.0. UA negative for UTI. CT Abdomen/Pelvis with acute inflammatory process involving the duodenum with secondary extension towards gallbladder, no gallbladder distention. S/p Zosyn in ER. CBC/BMP: 07/07/17 0536 07/06/17 0736 Significant Findings Laboratory Tests Test 07/04/17 13:59 07/05/17 05:08 07/06/17 07:36 07/07/17 05:36 Hemoglobin 6.5 GM/DL (11.6-15.3) 8.7 GM/DL (11.6-15.3) 8.1 GM/DL (11.6-15.3) 7.9 GM/DL (11.6-15.3) Hematocrit 19.2 % (35.0-46.0) 25.4 % (35.0-46.0) 23.3 % (35.0-46.0) 22.1 % (35.0-46.0) Total Iron Binding Capacity 162 MCG/DL (250-450) Percent Iron Saturation 61.6 % (20-50) Ferritin 1233 NG/ML (8-252) Vitamin B12 Level 1052 PG/ML (193-986) Folate GREATER THAN 20.0 NG/ML White Blood Count 13.4 TH/MM3 (4.0-11.0) 11.9 TH/MM3 (4.0-11.0) 12.1 TH/MM3 (4.0-11.0) Red Blood Count 2.91 MIL/MM3 (4.00-5.30) 2.65 MIL/MM3 (4.00-5.30) 2.56 MIL/MM3 (4.00-5.30) Blood Urea Nitrogen 34 MG/DL (7-18) 25 MG/DL (7-18) Creatinine 1.13 MG/DL (0.50-1.00) Calcium Level 8.3 MG/DL (8.5-10.1) Potassium Level 3.2 MEQ/L (3.5-5.1) 3.1 MEQ/L (3.5-5.1) Estimat Glomerular Filtration Rate 46 ML/MIN (>89) 62 ML/MIN (>89) PE at Discharge GENERAL: This is a well-nourished, well-developed patient, in no apparent distress. CARDIOVASCULAR: Normal rate and regular rhythm without murmurs, gallops, or rubs. RESPIRATORY: Good respiratory efforts. Breath sounds equal and clear to auscultation bilaterally. GASTROINTESTINAL: Abdomen soft, mild tenderness to palpation in the midepigastric region. Normal and active bowel sounds. MUSCULOSKELETAL: Extremities without cyanosis, or edema. NEURO: Alert & Oriented x4 to person, place, time, situation. Moves all ext x4 PSYCH: Appropriate mood and affect. Hospital Course 81-year-old female with: 1. Sepsis secondary to duodenitis: WBC 26, HR 113, Source-Duodenitis, s/p Zosyn in ER, will continue w/ IV Abx. -GI following EGD revealed Posterior duodenal ulcer with recent bleed -Avoid NSAIDs. Continue PPI - continue Augmentin for 3 more days Duodenitis: c/o crampy, abdominal pain, CT Abd/Pelvis w/ acute inflammatory process involving duodenum w/ extension towards gallbladder, unlikely cholecystitis. S/p Zosyn, continue Augmentin for 3 more days -Advance diet as tolerated. Acute blood loss anemia, secondary to above -Status post transfusion of 2 units of PRBC -H&H still trending down. She may need further blood transfusion. Repeat H&H in a.m. S/p Left Hip Replacement: on 06/26/[address] Sun, following. PT for continued therapy. Left leg pain: - May be related to osteoarthritis. Orthopedics following and have ordered x- ray of her lumbar spine. DVT Prophylaxis: SCDs. Lovenox on hold secondary to GI bleeding Hypokalemia: Replace and monitor Pt Condition on Discharge: Good Discharge Disposition: Disch w/ Home Health Serv Discharge Instructions DIET: Follow Instructions for: Heart Healthy Diet Additional Diet Instructions: Avoid spicy foods, coffee, chocolate Activities you can perform: Regular-No Restrictions Flo Bhandari MD Jul 07, 2017 12:01
[2017-07-07] MEDS ORDERED: POTA-163 PO (12:04)
--- NOTE | 2017-07-07 12:05 | HHI.FF ---
Face to Face Verification Diagnosis: (1) S/P hip replacement (2) Primary osteoarthritis of left hip (3) Sepsis (4) Duodenitis with bleeding Physical Therapy Order: Evaluate and Treat, Improve ambulation, Strength and gait training Home Health Nursing Order: Medical education Nursing assessment with vital signs I have seen patient Cecy Mcqueen on 07/07/17. My clinical findings support the need for the requested home health care services because: Deconditioned w/ increased weakness Limited ability to care for self I certify that my clinical findings support that this patient is homebound because: Unsteady gait/balance Flo Bhandari MD Jul 07, 2017 12:05
--- NOTE | 2017-07-07 12:54 | HHI.PR ---
Subjective Remarks Was due for DC but became dizzy and hypotensive after pain meds. Not much reserve. H&H still low. About 4 points from her baseline. Transfuse 1 unit. Objective Vitals Vital Signs Date Time Temp Pulse Resp B/P (MAP) Pulse Ox O2 Delivery O2 Flow Rate FiO2 07/07/17 08:00 97.9 113 18 130/60 (83) 100 07/07/17 02:45 98.3 90 18 134/60 (84) 99 07/06/17 23:04 97.9 86 18 124/58 (80) 98 07/06/17 19:55 21 07/06/17 19:27 98.0 98 18 109/53 (71) 100 07/06/17 15:41 98.1 99 18 120/55 (76) 97 07/06/17 13:19 100 21 I/O 07/06/17 07/06/17 07/06/17 07/07/17 07/07/17 07/07/17 07:00 15:00 23:00 07:00 15:00 23:00 Intake Total 850 ml 360 ml Balance 850 ml 360 ml Intake Oral 850 ml 360 ml # Voids 3 3 # Bowel Movements 1 2 0 Result Diagram: 07/07/17 0536 07/06/17 0736 Objective Remarks GENERAL: Patient appear pale, in no apparent distress. CARDIOVASCULAR: Normal rate and regular rhythm without murmurs, gallops, or rubs. RESPIRATORY: Good respiratory efforts. Breath sounds equal and clear to auscultation bilaterally. GASTROINTESTINAL: Abdomen soft, mild tenderness to palpation in the midepigastric region. Normal and active bowel sounds. MUSCULOSKELETAL: Extremities without cyanosis, or edema. NEURO: Alert & Oriented x4 to person, place, time, situation. Moves all ext x4 PSYCH: Appropriate mood and affect. A/P Problem List: (1) Sepsis ICD Code: A41.9 - Sepsis Status: Acute (2) Duodenitis with bleeding ICD Code: K29.81 - Duodenitis with bleeding (3) S/P hip replacement ICD Code: Z96.649 - Presence of unspecified artificial hip joint Assessment and Plan 81-year-old female with: 1. Sepsis secondary to duodenitis: WBC 26, HR 113, Source-Duodenitis, s/p Zosyn in ER, will continue w/ IV Abx. -GI following EGD revealed Posterior duodenal ulcer with recent bleed -Avoid NSAIDs. Continue PPI - continue Augmentin Duodenitis: c/o crampy, abdominal pain, CT Abd/Pelvis w/ acute inflammatory process involving duodenum w/ extension towards gallbladder, unlikely cholecystitis. S/p Zosyn, continue Augmentin for 3 more days -Advance diet as tolerated. Acute blood loss anemia, secondary to above -Status post transfusion of 2 units of PRBC. However H&H trending down again. She is symptomatic. Will transfuse 1 more units of PRBC and monitor H&H. - Repeat H&H in a.m. S/p Left Hip Replacement: on 06/26/[address] Sun, following. PT for continued therapy. Left leg pain: - May be related to osteoarthritis. Orthopedics following and have ordered x- ray of her lumbar spine. DVT Prophylaxis: SCDs. Lovenox on hold secondary to GI bleeding Hypokalemia: Replace and monitor Discharge Planning Hold discharge today. Transfusion today. Reassess tomorrow. Flo Bhandari MD Jul 07, 2017 12:54
[2017-07-07] MEDS ORDERED: SODIUM CHLOR 0.9% 250 ML INJ 250 ML IV ONE (13:00)
[2017-07-07] MEDS: LACTATED RINGER'S 1000 ML INJ 1,000 ML IV SCH (19:59)
[2017-07-08] VITALS (7 sets, daily range): BP systolic 132–161; BP diastolic 61–74; PULSE 86–108; RESP 18–19; TEMP 97.5–98.5; O2SAT 95–100
[2017-07-08] MEDS: oxyCODONE/ACETAMINOPHEN 5 MG/325 MG TAB PO PRN ×3 (00:48→20:44)
[2017-07-08] MEDS: LACTATED RINGER'S 1000 ML INJ 1,000 ML IV SCH ×3 (03:59→19:59)
[2017-07-08] MEDS: LEVOTHYROXINE SODIUM 125 MCG TAB PO SCH (05:49)
[2017-07-08] MEDS: SUMAtriptan SUCCINATE 50 MG TAB PO PRN ×2 (05:49→20:45)
--- NOTE | 2017-07-08 08:48 | HHI.PR ---
Subjective Remarks Patient had 3 bloody diarrhea episodes overnight. She denies abdominal pain. Objective Vitals Vital Signs Date Time Temp Pulse Resp B/P (MAP) Pulse Ox O2 Delivery O2 Flow Rate FiO2 07/08/17 07:00 98.1 86 18 161/74 (103) 96 07/08/17 06:49 20 07/08/17 04:04 98.3 94 18 138/61 (86) 95 07/08/17 04:00 98 07/08/17 01:48 20 07/08/17 00:00 87 07/07/17 23:40 98.1 95 17 144/62 (89) 97 07/07/17 20:43 21 07/07/17 20:00 101 07/07/17 19:58 98.6 98 18 126/58 (80) 98 07/07/17 17:42 107 07/07/17 17:17 97.7 94 18 125/59 98 07/07/17 17:00 98.7 18 18 122/60 97 07/07/17 16:00 98.9 96 18 122/60 (80) 97 07/07/17 14:00 91 21 07/07/17 13:00 88 100/50 (67) 07/07/17 12:00 97.9 115 18 94/46 (62) 99 I/O 07/07/17 07/07/17 07/07/17 07/08/17 07/08/17 07/08/17 07:00 15:00 23:00 07:00 15:00 23:00 Intake Total 360 ml 360 ml 5 ml 930 ml Balance 360 ml 360 ml 5 ml 930 ml Intake Oral 360 ml 360 ml 480 ml Packed Cells 400 ml Blood Product IV Normal Saline Flush 5 ml 50 ml # Voids 3 3 3 # Bowel Movements 0 3 Result Diagram: 07/07/17 0536 07/07/17 1350 Objective Remarks GENERAL: Patient appear pale, in no apparent distress. CARDIOVASCULAR: Normal rate and regular rhythm without murmurs, gallops, or rubs. RESPIRATORY: Good respiratory efforts. Breath sounds equal and clear to auscultation bilaterally. GASTROINTESTINAL: Abdomen soft, mild tenderness to palpation in the midepigastric region. Normal and active bowel sounds. MUSCULOSKELETAL: Extremities without cyanosis, or edema. NEURO: Alert & Oriented x4 to person, place, time, situation. Moves all ext x4 PSYCH: Appropriate mood and affect. A/P Problem List: (1) Sepsis ICD Code: A41.9 - Sepsis Status: Acute (2) Duodenitis with bleeding ICD Code: K29.81 - Duodenitis with bleeding (3) S/P hip replacement ICD Code: Z96.649 - Presence of unspecified artificial hip joint Assessment and Plan 81-year-old female with: 1. Sepsis secondary to duodenitis: WBC 26, HR 113, Source-Duodenitis, s/p Zosyn in ER, will continue w/ IV Abx. -GI following EGD revealed Posterior duodenal ulcer with recent bleed -Avoid NSAIDs. Continue PPI - continue Augmentin Duodenitis: c/o crampy, abdominal pain, CT Abd/Pelvis w/ acute inflammatory process involving duodenum w/ extension towards gallbladder, unlikely cholecystitis. S/p Zosyn, continue Augmentin for 3 more days -Advance diet as tolerated. Acute blood loss anemia, secondary to above -Status post total of 3 units of PRBC. Last transfusion yesterday because H&H was trending down and symptomatic. - Repeat H&H pending this a.mBaylee BABCOCK RN to notify GI - Transfuse as needed S/p Left Hip Replacement: on 06/26/[address] Sun, following. PT for continued therapy. Left leg pain: - May be related to osteoarthritis. Orthopedics following and have ordered x- ray of her lumbar spine. DVT Prophylaxis: SCDs. Lovenox on hold secondary to GI bleeding Hypokalemia: Replace and monitor Discharge Planning Still having active GI bleed. Flo Bhandari MD Jul 08, 2017 08:48
[2017-07-08] MEDS: SODIUM CHLORIDE 0.9% FLUSH 10 ML FLUSH IV FLUSH SCH ×2 (09:00→22:43)
[2017-07-08] MEDS: AMOXICILLIN/CLAVULANATE K 875 MG TAB PO SCH (09:23)
[2017-07-08] MEDS: PANTOPRAZOLE SOD 40 MG DELAYED RELEASE TAB PO SCH (09:24)
[2017-07-08] MEDS: SUCRALFATE 1 GM TAB PO SCH ×3 (09:24→17:27)
[2017-07-08 11:42] LABS: HEMATOCRIT 27.9 % (35.0-46.0); HEMOGLOBIN 9.3 GM/DL (11.6-15.3); MEAN CELL VOLUME 85.1 FL (80.0-100.0); MEAN CORPUSCULAR HEMOGLOBIN 28.4 PG (27.0-34.0); MEAN CORPUSCULAR HGB CONC 33.4 % (32.0-36.0); MEAN PLATELET VOLUME 8.3 FL (7.0-11.0); PLATELET COUNT 424 TH/MM3 (150-450); RED BLOOD COUNT 3.28 MIL/MM3 (4.00-5.30); RED CELL DISTRIBUTION WIDTH 17.1 % (11.6-17.2); WHITE BLOOD COUNT 14.9 TH/MM3 (4.0-11.0)
[2017-07-08 12:10] LABS: HEMATOCRIT 23.7 % (35.0-46.0); HEMOGLOBIN 8.1 GM/DL (11.6-15.3)
[2017-07-08 12:16] LABS: BICARBONATE 26.8 MEQ/L (21.0-32.0); CALCIUM 8.5 MG/DL (8.5-10.1); CREATININE 0.87 MG/DL (0.50-1.00)
--- NOTE | 2017-07-08 14:30 | HHI.GIFU ---
GI Follow-up Note Consult Follow-up Subjective: Called by nursing staff because the aid reported seeing blood clots in a BM from early am. No abd pain or nausea. She reports no BM past 2 days so took MOM yesterday and had a BM late last night and early this am. Hgb has remained stable and BUN down to 16. IVFs stopped. Objective: PHYSICAL EXAMINATION: Vitals signs stable No fever ABDOMEN: Soft, nondistended, nontender HOOP RIVETING MACHINE OPERATOR: alert and oriented times three. Available Data (labs, X- Rays, Procedues) : ASSESSMENT/PLAN: 1. DU w/ bleed-I think she is still passing some old blood. Will repeat H&H in am. Continue PPI and carafate and continue diet. MOM or miralax ok for prn use for constipation. She has been getting opiate analgesics for her orthopedic pain. It was a pleasure seeing Cecy Mcqueen. Thank you for this consult. Entered by: Florentin Bearden MD Jul 08, 2017 14:30
[2017-07-08] MEDS: ONDANSETRON HCL 4 MG/2 ML VIAL IVP PRN (22:43)
[2017-07-09] VITALS: BP 132/58; PULSE 97; RESP 18; TEMP 98.9; O2SAT 95
[2017-07-09 05:04] VITALS: BP 147/67; PULSE 95; RESP 18; TEMP 98.1; O2SAT 97
[2017-07-09] MEDS: SUCRALFATE 1 GM TAB PO SCH ×4 (06:23→20:08)
[2017-07-09] MEDS: SUMAtriptan SUCCINATE 50 MG TAB PO PRN ×2 (06:23→20:07)
[2017-07-09] MEDS: LEVOTHYROXINE SODIUM 125 MCG TAB PO SCH (06:23)
[2017-07-09 06:55] LABS: HEMATOCRIT 22.7 % (35.0-46.0); HEMOGLOBIN 7.6 GM/DL (11.6-15.3); MEAN CELL VOLUME 85.8 FL (80.0-100.0); MEAN CORPUSCULAR HEMOGLOBIN 28.9 PG (27.0-34.0); MEAN CORPUSCULAR HGB CONC 33.7 % (32.0-36.0); MEAN PLATELET VOLUME 8.4 FL (7.0-11.0); PLATELET COUNT 374 TH/MM3 (150-450); RED BLOOD COUNT 2.64 MIL/MM3 (4.00-5.30); RED CELL DISTRIBUTION WIDTH 17.1 % (11.6-17.2); WHITE BLOOD COUNT 14.1 TH/MM3 (4.0-11.0)
[2017-07-09 07:02] LABS: BICARBONATE 26.5 MEQ/L (21.0-32.0); CALCIUM 8.3 MG/DL (8.5-10.1); CREATININE 0.96 MG/DL (0.50-1.00)
[2017-07-09 08:00] VITALS: BP 158/75; PULSE 99; RESP 18; TEMP 98.1; O2SAT 99
[2017-07-09] MEDS: SODIUM CHLORIDE 0.9% FLUSH 10 ML FLUSH IV FLUSH SCH ×2 (09:00→20:12)
[2017-07-09] MEDS: PANTOPRAZOLE SOD 40 MG DELAYED RELEASE TAB PO SCH ×2 (09:36→20:08)
[2017-07-09] MEDS: AMOXICILLIN/CLAVULANATE K 875 MG TAB PO SCH ×2 (09:36→20:07)
[2017-07-09] MEDS: oxyCODONE/ACETAMINOPHEN 5 MG/325 MG TAB PO PRN (09:37)
--- NOTE | 2017-07-09 09:58 | HHI.GIFU ---
GI Follow-up Note Consult Follow-up Subjective: Patient sitting in chair. BM brown and formed this am without gross blood or clots. Hgb 7.6. She has no GI complaints. She c/o left buttocks and LLE pain. Objective: PHYSICAL EXAMINATION: Vitals signs stable No fever CHEST: Breathing non-labored EXTREMITIES: wearing SCDs on both LEs. Has some left calf tenderness but not swollen. STRAIGHTENING MACHINE FEEDER: alert and oriented times three. Available Data (labs, X- Rays, Procedues) : Laboratory Tests Test 07/07/17 05:36 07/07/17 13:50 07/08/17 00:55 07/08/17 09:50 White Blood Count 12.1 TH/MM3 (4.0-11.0) 14.9 TH/MM3 (4.0-11.0) Red Blood Count 2.56 MIL/MM3 (4.00-5.30) 3.28 MIL/MM3 (4.00-5.30) Hemoglobin 7.9 GM/DL (11.6-15.3) 9.3 GM/DL (11.6-15.3) Hematocrit 22.1 % (35.0-46.0) 27.9 % (35.0-46.0) Estimat Glomerular Filtration Rate 63 ML/MIN (>89) Test 07/08/17 11:51 07/09/17 04:17 Hemoglobin 8.1 GM/DL (11.6-15.3) 7.6 GM/DL (11.6-15.3) Hematocrit 23.7 % (35.0-46.0) 22.7 % (35.0-46.0) White Blood Count 14.1 TH/MM3 (4.0-11.0) Red Blood Count 2.64 MIL/MM3 (4.00-5.30) Calcium Level 8.3 MG/DL (8.5-10.1) Estimat Glomerular Filtration Rate 56 ML/MIN (>89) ASSESSMENT/PLAN: 1. DU w/ bleed-stable. Will check H&H again in am. If ortho feels she needs anticoagulation I am ok with Lovenox. Best to avoid ASA. It was a pleasure seeing Cecy Mcqueen. Thank you for this consult. Entered by: Florentin Bearden MD Jul 09, 2017 09:58
[2017-07-09 12:00] VITALS: BP 113/54; PULSE 98; RESP 19; TEMP 98.2; O2SAT 98
[2017-07-09 16:00] VITALS: BP 125/58; PULSE 97; RESP 18; TEMP 97.4; O2SAT 97
[2017-07-09 20:12] VITALS: BP 112/54; PULSE 106; RESP 19; TEMP 96.6; O2SAT 98
--- NOTE | 2017-07-09 21:58 | HHI.PR ---
Subjective Remarks Patient seen today around 1 PM. Says she is feeling all right. Says that chest discomfort has improved. Says she feels like going home tomorrow. Objective Vital Signs Date Time Temp Pulse Resp B/P (MAP) Pulse Ox O2 Delivery O2 Flow Rate FiO2 07/09/17 20:12 96.6 106 19 112/54 (73) 98 07/09/17 16:00 97.4 97 18 125/58 (80) 97 07/09/17 12:00 98.2 98 19 113/54 (73) 98 07/09/17 08:00 98.1 99 18 158/75 (102) 99 07/09/17 05:04 98.1 95 18 147/67 (93) 97 07/09/17 00:00 98.9 97 18 132/58 (82) 95 I/O 07/08/17 07/08/17 07/08/17 07/09/17 07/09/17 07/09/17 07:00 15:00 23:00 07:00 15:00 23:00 Intake Total 930 ml Balance 930 ml Intake Oral 480 ml Packed Cells 400 ml Blood Product IV Normal Saline Flush 50 ml # Voids 3 4 3 # Bowel Movements 3 2 1 Result Diagram: 07/09/1741607/09/17416 Objective Remarks GENERAL: patient lying in bed. Appears comfortable. SKIN: Warm and dry. HEAD: Normocephalic. EYES: No scleral icterus. No injection or drainage. NECK: Supple, trachea midline. No JVD or lymphadenopathy. CARDIOVASCULAR: Regular rate and rhythm without murmurs, gallops, or rubs. RESPIRATORY: Breath sounds equal bilaterally. No accessory muscle use. GASTROINTESTINAL: Abdomen soft, non-tender, nondistended. MUSCULOSKELETAL: No cyanosis, or edema. BACK: Nontender without obvious deformity. No CVA tenderness. A/P Assessment and Plan 81-year-old female with: //Sepsis secondary to duodenitis: WBC 26, HR 113, Source-Duodenitis, s/p Zosyn in ER, will continue w/ IV Abx. -GI following EGD revealed Posterior duodenal ulcer with recent bleed -Avoid NSAIDs. Continue PPI - continue Augmentin. Appreciate GI assistance //Duodenitis: c/o crampy, abdominal pain, CT Abd/Pelvis w/ acute inflammatory process involving duodenum w/ extension towards gallbladder, unlikely cholecystitis. S/p Zosyn, continue Augmentin for 3 more days -Advance diet as tolerated. //Acute blood loss anemia, secondary to above -Status post total of 3 units of PRBC. Last transfusion yesterday because H&H was trending down and symptomatic. - Repeat H&H pending this a.m. SADIQ RN to notify GI - Transfuse as needed = 07/09. Hemoglobin 7.6, slightly down from yesterday. Continue to monitor. Recheck tomorrow. //S/p Left Hip Replacement: on 06/26/[address] Sun, following. PT for continued therapy. //Left leg pain: - May be related to osteoarthritis. Orthopedics following and have ordered x- ray of her lumbar spineno acute findings.. No acute findings. //DVT Prophylaxis: SCDs. Lovenox on hold secondary to GI bleeding //Hypokalemia: Replace and monitor Discharge Planning if hemoglobin continues stable and cleared by GI. home with home health PT when cleared by consultants Rodríguez Mcgovern MD Jul 09, 2017 21:58
[2017-07-10 00:23] VITALS: BP 136/62; PULSE 96; RESP 16; TEMP 98.4; O2SAT 97
[2017-07-10 04:19] VITALS: BP 145/64; PULSE 93; RESP 18; TEMP 99.1; O2SAT 96
[2017-07-10] MEDS: LEVOTHYROXINE SODIUM 125 MCG TAB PO SCH (04:22)
[2017-07-10] MEDS: oxyCODONE/ACETAMINOPHEN 5 MG/325 MG TAB PO PRN ×2 (04:22→10:12)
[2017-07-10] MEDS: SUMAtriptan SUCCINATE 50 MG TAB PO PRN (06:19)
[2017-07-10] MEDS: SUCRALFATE 1 GM TAB PO SCH (06:19)
--- NOTE | 2017-07-10 07:33 | PD.ORT.PN ---
Subjective Post Op Day #: 14 Subjective Remarks She is doing better. She has less difficulty with her abdomen. Her hip is not really very painful. She does well walking. She has somewhat less pain into both feet but more on the left than the right. The pain seems to be somewhat radicular in character. Distance Walked 20 feet twice with PT. Objective Vitals Vital Signs Date Time Temp Pulse Resp B/P (MAP) Pulse Ox O2 Delivery O2 Flow Rate FiO2 07/10/17 04:19 99.1 93 18 145/64 (91) 96 07/10/17 00:23 98.4 96 16 136/62 (86) 97 07/09/17 20:12 96.6 106 19 112/54 (73) 98 07/09/17 16:00 97.4 97 18 125/58 (80) 97 07/09/17 12:00 98.2 98 19 113/54 (73) 98 07/09/17 08:00 98.1 99 18 158/75 (102) 99 I/O 07/09/17 07/09/17 07/09/17 07/10/17 07/10/17 07/10/17 07:00 15:00 23:00 07:00 15:00 23:00 # Voids 3 # Bowel Movements 1 Result Diagram: 07/09/17 0417 07/09/17 0417 Imaging Some degenerative changes are noted in the x-rays as well as the CT scan. Last 72 hours Impressions Lumbar Spine X-Ray 07/06/17 0000 Signed Impressions: Service Date/Time: June 10:45 - CONCLUSION: Unremarkable examination of the lumbar spine except for left lower scoliosis. Jonathan Alcala MD Objective Remarks She is resting comfortably, supine in bed. The dressing is dry and intact. There is some ecchymosis distally. There is no induration. She has no tenderness in the sciatic notch itself. Her neurovascular status is essentially intact. She moves both feet normally. There is no calf tenderness at this time. Assessment & Plan Ortho Post Op Day #: 14 Problem List: (1) Status post total replacement of left hip ICD Codes: Z96.642 - Presence of left artificial hip joint Plan: Continue postop care and PT. Assessment and Plan Orthopedically stable. She is to continue postoperative care and physical therapy. The knee immobilizer should be left in place while sleeping but should be removed when awake and out of bed. Discharge plans: Home with home health care with [facility]. An appointment was scheduled through the office. I would still hesitate to give her oral steroids as I would normally do because of her GI bleed. I have communicated with Dr. Markham about this. The risk of bleeding might be too great. Keisha Sun MD ([facility]) Jul 10, 2017 07:33
--- NOTE | 2017-07-10 07:58 | HHI.FF ---
Face to Face Verification Diagnosis: (1) Status post total replacement of left hip Physical Therapy Gait training Hip: Total hip, Protocol: Left, Posterior hip precautions, Progress to weight bearing Canvas Knee Splint: When in bed & 2 pillows btw thighs (For 2 months.) Left LE Weight Bearing: WB as tolerated Left LE Range of Motion: Active ROM Nursing Nursing: Dressing changes Dressing Changes: Daily dressing change, Coverderm/Primapore I have seen patient Cecy Mcqueen on 07/10/17. My clinical findings support the need for the requested home health care services because: Ltd mobility - disease progression Limited ability to care for self High risk of falls I certify that my clinical findings support that this patient is homebound because: Post-op weakness Unsteady gait/balance Unsafe to leave home unassisted Keisha Sun MD ([facility]) Jul 10, 2017 07:58
[2017-07-10 08:00] VITALS: BP 135/65; PULSE 83; RESP 18; TEMP 98.6; O2SAT 98
[2017-07-10 08:08] LABS: ALBUMIN 2.6 GM/DL (3.4-5.0); BICARBONATE 26.6 MEQ/L (21.0-32.0); CALCIUM 8.4 MG/DL (8.5-10.1); CREATININE 1.02 MG/DL (0.50-1.00); MAGNESIUM 2.4 MG/DL (1.5-2.5); PHOSPHORUS 2.7 MG/DL (2.5-4.9)
[2017-07-10 08:24] LABS: AUTOMATED NEUTROPHIL # 7.8 TH/MM3 (1.8-7.7); BASOPHIL # 0.2 TH/MM3 (0-0.2); BASOPHIL % 1.9 % (0.0-2.0); EOSINOPHIL # 0.3 TH/MM3 (0-0.4); EOSINOPHIL % 2.4 % (0.0-4.0); HEMATOCRIT 23.6 % (35.0-46.0); HEMOGLOBIN 8.1 GM/DL (11.6-15.3); LYMPH % 18.4 % (9.0-44.0); MEAN CELL VOLUME 87.1 FL (80.0-100.0); MEAN CORPUSCULAR HEMOGLOBIN 29.7 PG (27.0-34.0); MEAN CORPUSCULAR HGB CONC 34.1 % (32.0-36.0); MEAN PLATELET VOLUME 8.6 FL (7.0-11.0); MONO % 5.8 % (0.0-8.0); MONOCYTE # 0.6 TH/MM3 (0-0.9); NEUT % 71.5 % (16.0-70.0); PLATELET COUNT 404 TH/MM3 (150-450); RED BLOOD COUNT 2.71 MIL/MM3 (4.00-5.30); RED CELL DISTRIBUTION WIDTH 16.8 % (11.6-17.2); WHITE BLOOD COUNT 10.9 TH/MM3 (4.0-11.0)
[2017-07-10] MEDS: AMOXICILLIN/CLAVULANATE K 875 MG TAB PO SCH (08:46)
[2017-07-10] MEDS: PANTOPRAZOLE SOD 40 MG DELAYED RELEASE TAB PO SCH (08:46)
[2017-07-10] MEDS: SODIUM CHLORIDE 0.9% FLUSH 10 ML FLUSH IV FLUSH SCH (08:48)
[2017-07-10] MEDS ORDERED: AMOX875T2 PO (09:20)
[2017-07-10 09:25] LABS: BANDS 1 % (0-6); BASOPHILS 2 % (0-2); LYMPHOCYTES 17 % (9-44); METAMYELOCYTES 1 % (0-1); MONOCYTES 1 % (0-8); MYELOCYTES 2 % (0-0); NEUTROPHIL # MANUAL DIFF 8.6 TH/MM3 (1.8-7.7); POLYS (SEG NEUTROPHILS) 75 % (16-70)
[2017-07-10 09:26] LABS: POLYCHROMASIA 2.2 % (0.0-1.9)
[2017-07-10] MEDS ORDERED: POTASSIUM CHLORIDE 20 MEQ CONTROLLED RELEASE TAB PO ONE (09:30)
--- NOTE | 2017-07-10 09:40 | HHI.GIFU ---
GI Follow-up Note Consult Follow-up Subjective: Patient laying in bed and states her sciatica pain is bearable when lying or walking but painful when sitting. Last BM yesterday. Hgb improved to 8.1. Gastric bx neg for H. Pylori. Objective: PHYSICAL EXAMINATION: Vitals signs stable No fever ABDOMEN: Soft, nondistended, nontender QUARRY SUPERVISOR DIMENSION STONE: alert and oriented times three. Available Data (labs, X- Rays, Procedues) : Laboratory Tests Test 07/07/17 13:50 07/08/17 00:55 07/08/17 09:50 07/08/17 11:51 White Blood Count 14.9 TH/MM3 (4.0-11.0) Red Blood Count 3.28 MIL/MM3 (4.00-5.30) Hemoglobin 9.3 GM/DL (11.6-15.3) 8.1 GM/DL (11.6-15.3) Hematocrit 27.9 % (35.0-46.0) 23.7 % (35.0-46.0) Estimat Glomerular Filtration Rate 63 ML/MIN (>89) Test 07/09/17 04:17 07/10/17 06:24 White Blood Count 14.1 TH/MM3 (4.0-11.0) Red Blood Count 2.64 MIL/MM3 (4.00-5.30) 2.71 MIL/MM3 (4.00-5.30) Hemoglobin 7.6 GM/DL (11.6-15.3) 8.1 GM/DL (11.6-15.3) Hematocrit 22.7 % (35.0-46.0) 23.6 % (35.0-46.0) Calcium Level 8.3 MG/DL (8.5-10.1) 8.4 MG/DL (8.5-10.1) Estimat Glomerular Filtration Rate 56 ML/MIN (>89) 52 ML/MIN (>89) Neutrophils (%) (Auto) 71.5 % (16.0-70.0) Neutrophils # (Auto) 7.8 TH/MM3 (1.8-7.7) Neutrophils % (Manual) 75 % (16-70) Neutrophils # (Manual) 8.6 TH/MM3 (1.8-7.7) Myelocytes 2 % (0-0) Polychromasia 2.2 % (0.0-1.9) Basophilic Stippling MOD (NORMAL) Creatinine 1.02 MG/DL (0.50-1.00) Albumin 2.6 GM/DL (3.4-5.0) Potassium Level 3.4 MEQ/L (3.5-5.1) ASSESSMENT/PLAN: 1. DU w/ bleed-remains stable. Continue PPI and carafate. Will discuss with Dr Sun. It was a pleasure seeing Cecy Mcqueen. Thank you for this consult. Entered by: Florentin Bearden MD Jul 10, 2017 09:40
--- NOTE | 2017-07-11 07:02 | HHI.PR ---
Subjective Remarks Date of service 07/10/17. Patient seen in the morning around 9 AM. Says she is feeling well. Would like to go home. Denies any chest pain or shortness of breath. Objective Vital Signs Date Time Temp Pulse Resp B/P (MAP) Pulse Ox O2 Delivery O2 Flow Rate FiO2 07/10/17 08:00 98.6 83 18 135/65 (88) 98 07/10/17 07:42 Room Air Result Diagram: 07/10/1762307/10/17 06 Objective Remarks GENERAL: patient lying in bed. Appears comfortable.alert and oriented 4. SKIN: Warm and dry. HEAD: Normocephalic. EYES: No scleral icterus. No injection or drainage. NECK: Supple, trachea midline. No JVD or lymphadenopathy. CARDIOVASCULAR: Regular rate and rhythm without murmurs, gallops, or rubs. RESPIRATORY: Breath sounds equal bilaterally. No accessory muscle use. GASTROINTESTINAL: Abdomen soft, non-tender, nondistended. MUSCULOSKELETAL: No cyanosis, or edema. BACK: Nontender without obvious deformity. No CVA tenderness. A/P Assessment and Plan 81-year-old female with: //Sepsis secondary to duodenitis: WBC 26, HR 113, Source-Duodenitis, s/p Zosyn in ER, will continue w/ IV Abx. -GI following EGD revealed Posterior duodenal ulcer with recent bleed -Avoid NSAIDs. Continue PPI - continue Augmentin. Appreciate GI assistance = White count resolved. Continue Augmentin to complete treatment course. //Duodenitis: c/o crampy, abdominal pain, CT Abd/Pelvis w/ acute inflammatory process involving duodenum w/ extension towards gallbladder, unlikely cholecystitis. S/p Zosyn, continue Augmentin for 3 more days -Advance diet as tolerated. //Acute blood loss anemia, secondary to above -Status post total of 3 units of PRBC. Last transfusion yesterday because H&H was trending down and symptomatic. - Repeat H&H pending this a.m. SADIQ RN to notify GI - Transfuse as needed = 07/09. Hemoglobin 7.6, slightly down from yesterday. Continue to monitor. Recheck tomorrow. = 07/10. Hemoglobin 8.1, up from yesterday. Continue Cipro fate and PPI. //S/p Left Hip Replacement: on 06/26/[address] Sun, following. PT for continued therapy. //Left leg pain: - May be related to osteoarthritis. Orthopedics following and have ordered x- ray of her lumbar spineno acute findings.. No acute findings. Home PT. Follow -up with orthopedics. //hypokalemia. 3.4. Mild. Replace. Follow-up with primary care. //DVT Prophylaxis: SCDs. Lovenox on hold secondary to GI bleeding //Hypokalemia: Replace and monitor Discharge Planning discharge home with home health Rodríguez Mcgovern MD July 11, 2017 07:02
--- NOTE | 2017-07-11 07:03 | HHI.DS ---
Discharge Summary Admission Date Jul 02, 2017 at 02:35 Discharge Date: July 11, 2017 Admitting Diagnosis Duodenitis. Status post left hip arthroplasty (1) Sepsis ICD Code: A41.9 - Sepsis Status: Acute (2) Duodenitis with bleeding ICD Code: K29.81 - Duodenitis with bleeding (3) S/P hip replacement ICD Code: Z96.649 - Presence of unspecified artificial hip joint Brief History - From Admission This is a 81-year-old female with a PMH of Osteoarthritis and Migraine who presented to the ER with complaints of abdominal pain x5 days. Recent admit for Left Hip Replacement by Dr. Sun on 06/26/17, states has been doing well post-op but having c/o abdominal pain, taking pain medication w/ minimal improvement. Notes diffuse abdominal pain, cramping, intermittent, moderate to severe, 8/10, no associated nausea or vomiting. Denies fever or chills. On arrival, BP 162/71, HR 113, O2 sat 98% on RA, Afebrile. WBC 26.2. Chemistry essentially unremarkable. INR 1.0. UA negative for UTI. CT Abdomen/Pelvis with acute inflammatory process involving the duodenum with secondary extension towards gallbladder, no gallbladder distention. S/p Zosyn in ER. CBC/BMP: 07/10/17 0624 07/10/17 0624 Significant Findings Laboratory Tests Test 07/08/17 09:50 07/08/17 11:51 07/09/17 04:17 07/10/17 06:24 White Blood Count 14.9 TH/MM3 (4.0-11.0) 14.1 TH/MM3 (4.0-11.0) Red Blood Count 3.28 MIL/MM3 (4.00-5.30) 2.64 MIL/MM3 (4.00-5.30) 2.71 MIL/MM3 (4.00-5.30) Hemoglobin 9.3 GM/DL (11.6-15.3) 8.1 GM/DL (11.6-15.3) 7.6 GM/DL (11.6-15.3) 8.1 GM/DL (11.6-15.3) Hematocrit 27.9 % (35.0-46.0) 23.7 % (35.0-46.0) 22.7 % (35.0-46.0) 23.6 % (35.0-46.0) Estimat Glomerular Filtration Rate 63 ML/MIN (>89) 56 ML/MIN (>89) 52 ML/MIN (>89) Calcium Level 8.3 MG/DL (8.5-10.1) 8.4 MG/DL (8.5-10.1) Neutrophils (%) (Auto) 71.5 % (16.0-70.0) Neutrophils # (Auto) 7.8 TH/MM3 (1.8-7.7) Neutrophils % (Manual) 75 % (16-70) Neutrophils # (Manual) 8.6 TH/MM3 (1.8-7.7) Myelocytes 2 % (0-0) Polychromasia 2.2 % (0.0-1.9) Basophilic Stippling MOD (NORMAL) Creatinine 1.02 MG/DL (0.50-1.00) Albumin 2.6 GM/DL (3.4-5.0) Potassium Level 3.4 MEQ/L (3.5-5.1) Imaging Last Impressions Lumbar Spine X-Ray 07/06/17 0000 Signed Impressions: Service Date/Time: June 10:45 - CONCLUSION: Unremarkable examination of the lumbar spine except for left lower scoliosis. Jonathan Alcala MD Abdomen/Pelvis CT 07/02/17 0013 Signed Impressions: Service Date/Time: Sunday, July 02, 2017 02:03 - CONCLUSION: 1. Acute inflammatory process involving the duodenum with secondary extension towards the gallbladder. The gallbladder is not distended. I see no calcified stones. I feel this relates to an acute duodenitis with secondary involvement of the gallbladder as opposed to acute cholecystitis with secondary involvement of the duodenum. 2. Trace amount of free fluid adjacent to the tip of the liver and gallbladder. Kevin Cerda Jr., MD PE at Discharge GENERAL: Patient appear pale, in no apparent distress. CARDIOVASCULAR: Normal rate and regular rhythm without murmurs, gallops, or rubs. RESPIRATORY: Good respiratory efforts. Breath sounds equal and clear to auscultation bilaterally. GASTROINTESTINAL: Abdomen soft, mild tenderness to palpation in the midepigastric region. Normal and active bowel sounds. MUSCULOSKELETAL: Extremities without cyanosis, or edema. NEURO: Alert & Oriented x4 to person, place, time, situation. Moves all ext x4 PSYCH: Appropriate mood and affect. Hospital Course 81-year-old female with: //Sepsis secondary to duodenitis: WBC 26, HR 113, Source-Duodenitis, s/p Zosyn in ER, will continue w/ IV Abx. -GI following EGD revealed Posterior duodenal ulcer with recent bleed -Avoid NSAIDs. Continue PPI - continue Augmentin. Appreciate GI assistance = White count resolved. Continue Augmentin to complete treatment course. //Duodenitis: c/o crampy, abdominal pain, CT Abd/Pelvis w/ acute inflammatory process involving duodenum w/ extension towards gallbladder, unlikely cholecystitis. S/p Zosyn, continue Augmentin for 3 more days -Advance diet as tolerated. //Acute blood loss anemia, secondary to above -Status post total of 3 units of PRBC. Last transfusion yesterday because H&H was trending down and symptomatic. - Repeat H&H pending this a.m. [facility] RN to notify GI - Transfuse as needed = 07/09. Hemoglobin 7.6, slightly down from yesterday. Continue to monitor. Recheck tomorrow. = 07/10. Hemoglobin 8.1, up from yesterday. Continue Cipro fate and PPI. //S/p Left Hip Replacement: on 06/26/[address] Sun, following. PT for continued therapy. //Left leg pain: - May be related to osteoarthritis. Orthopedics following and have ordered x- ray of her lumbar spineno acute findings.. No acute findings. Home PT. Follow -up with orthopedics. //hypokalemia. 3.4. Mild. Replace. Follow-up with primary care. //DVT Prophylaxis: SCDs. Lovenox on hold secondary to GI bleeding //Hypokalemia: Replace and monitor Discharge Planning discharge home with home health Pt Condition on Discharge: Good Discharge Disposition: Disch w/ Home Health Serv Discharge Time: > 30 minutes Discharge Instructions DIET: Follow Instructions for: Heart Healthy Diet Additional Diet Instructions: Avoid spicy foods, coffee, chocolate Activities you can perform: Regular-No Restrictions Follow up Referrals: Gastroenterology - 1 Week with Florentin Markham MD Orthopedics with Keisha Sun MD ([facility]) PCP Follow-up - 1 Week New Orders: CBC NO DIFF - 2-3 Days New Medications: Potassium Chloride ER (Potassium Chloride ER) 20 Meq Tab 20 MEQ PO DAILY for Electrolyte Replacement, #30 TAB 0 Refills Amoxicillin-Clavulanate (Amoxicillin-Clavulanate) 875-125 mg Tab 875 MG PO Q12HR for Infection for 10 Days, TAB not for use in CrCl <30 mL/minute Pantoprazole (Pantoprazole) 40 Mg Tab 40 MG PO Q12HR, #60 TAB Sucralfate (Carafate) 1 Gram Tab 1 GM PO ACHS for 30 Days, #60 TAB Continued Medications: Calcium Carbonate-Vitamin D Chew (Caltrate 600+D Chew) 600-400 Mg-Unit Chew 1 TAB PO DAILY for Nutritional Supplement, EA 0 Refills Cholestyramine (Cholestyramine) 4 Gm/Pkt Powd 4 GM PO DAILY for Dyslipidemia, #1 BOX 0 Refills 1 packet contains 4 grams of cholestyramine. Ciclopirox (Nail Lacquer) Topical (Penlac (Nail Lacquer) Topical) 8% Soln 1 APPLIC TOPICAL HS PRN for FUN, #1 BOTTLE 0 Refills Estradiol (Estrace) 1 Mg Tab 1 MG PO DAILY for Estrogen Supplements, #30 TAB 0 Refills Hydrocodone/Acetaminophen (Hydrocodone-Acetamin 7.5-325) 7.5 Mg-325 Mg Tablet 1 TAB PO Q4H PRN for PAIN SCALE 1 TO 10, #30 TAB Levothyroxine (Synthroid) 125 Mcg Tab 125 MCG PO DAILY for Thyroid, #30 TAB 0 Refills Multiple Vitamins W/ Minerals (Senior Tabs) 0.4 Mg-300 Mcg-250 Mcg Tab 1 TAB PO DAILY Sumatriptan (Sumatriptan) 100 Mg Tab 100 MG PO ONCE PRN for MIGRAINE HEADACHE, TAB 0 Refills If a satisfactory response has not been obtained at 2 hours, a second dose may be administered Discontinued Medications: Aspirin DR (Aspirin DR) 81 Mg Tabdr 81 MG PO BID for Prevent Blood Clot for 30 Days, #60 TAB Rodríguez Mcgovern MD July 11, 2017 07:03
== END 2017-07-10 11:05 | disposition home health service (06) | DRG 871 ==
LOC: NEPC 23:08 → NEDA 07-02 02:35 → N03A 07-02 07:39 → N06A 07-04 00:33
PROVIDERS: ADMIT Internal Medicine; ATTEND Internal Medicine
PROC: 30233N1 Transfusion of Nonautologous Red Blood Cells into Peripheral Vein, Percutaneous Approach (ICD-10-PCS; 2017-07-04)
PROC: 0DB78ZX Excision of Stomach, Pylorus, Via Natural or Artificial Opening Endoscopic, Diagnostic (ICD-10-PCS; principal; 2017-07-05 15:33)
DX: A41.9 Sepsis, unspecified organism (principal); K29.81 Duodenitis with bleeding; I95.9 Hypotension, unspecified; K26.4 Chronic or unspecified duodenal ulcer with hemorrhage; D62 Acute posthemorrhagic anemia; K59.00 Constipation, unspecified; E03.9 Hypothyroidism, unspecified; M25.552 Pain in left hip; E87.6 Hypokalemia; R42 Dizziness and giddiness; M79.662 Pain in left lower leg; M54.32 Sciatica, left side; Z96.642 Presence of left artificial hip joint; M16.12 Unilateral primary osteoarthritis, left hip; J45.909 Unspecified asthma, uncomplicated; Z87.891 Personal history of nicotine dependence; Z79.82 Long term (current) use of aspirin
CPT/HCPCS: 36430; 72110; 74177; 80048; 80053; 80069; 81001; 82607; 82728; 82746; 83540; 83550; 83690; 83735; 84132; 85007; 85014; 85018; 85025; 85027; 85610; 85730; 86850; 86900; 86901; 86920; 87493; 87641; 88305; 88312; 93005; 96361; 96374; 96375; C9113; J1200; J1650; J1940; J2270; J2405; J2543; J2765; J7030; J7050; J7120; P9016; Q9967

== ENCOUNTER → 2017-07-17 | Outpatient (CLI) | payer MEDICARE ==
[2017-07-17 13:46] LABS: HEMATOCRIT 29.4 % (35.0-46.0); HEMOGLOBIN 9.8 GM/DL (11.6-15.3); MEAN CELL VOLUME 89.7 FL (80.0-100.0); MEAN CORPUSCULAR HEMOGLOBIN 29.7 PG (27.0-34.0); MEAN CORPUSCULAR HGB CONC 33.1 % (32.0-36.0); MEAN PLATELET VOLUME 9.5 FL (7.0-11.0); PLATELET COUNT 531 TH/MM3 (150-450); RED BLOOD COUNT 3.28 MIL/MM3 (4.00-5.30); RED CELL DISTRIBUTION WIDTH 17.2 % (11.6-17.2); REVIEW FLAG FINAL
[2017-07-17 14:06] LABS: ALBUMIN 3.7 GM/DL (3.4-5.0); ANION GAP 9 MEQ/L (5-15); AST (GOT) 23 U/L (15-37); BICARBONATE 26.5 MEQ/L (21.0-32.0); BLOOD UREA NITROGEN 18 MG/DL (7-18); CALCIUM 9.2 MG/DL (8.5-10.1); CHLORIDE 103 MEQ/L (98-107); GLOMERULAR FILTRATION RATE 48 ML/MIN (>89); GLUCOSE,RANDOM 84 MG/DL (74-106); POTASSIUM 4.5 MEQ/L (3.5-5.1); SODIUM (NA) 138 MEQ/L (136-145)
[2017-07-17 14:10] LABS: ALKALINE PHOSPHATASE 97 U/L (45-117); ALT (GPT) 26 U/L (10-53); TOTAL BILIRUBIN ADULT 0.8 MG/DL (0.2-1.0); TOTAL PROTEIN 7.5 GM/DL (6.4-8.2)
== END ==
LOC: PLAB 11:11
DX: K26.0 Acute duodenal ulcer with hemorrhage (principal)
CPT/HCPCS: 36415; 80053; 85027

== ENCOUNTER → 2017-08-17 | Outpatient (CLI) | payer MEDICARE ==
[~2017-08-17] MED LIST changes: +AMOX875T2 PO; +CARA1TAB6 PO; -ECASA81 PO; +PANT40TA3 PO; +POTA-163 PO
[2017-08-17 10:40] LABS: BICARBONATE 25.5 MEQ/L (21.0-32.0); CALCIUM 9.7 MG/DL (8.5-10.1)
[2017-08-17 10:49] LABS: AUTOMATED NEUTROPHIL # 7.6 TH/MM3 (1.8-7.7); BASOPHIL # 0.1 TH/MM3 (0-0.2); BASOPHIL % 0.6 % (0.0-2.0); EOSINOPHIL % 0.4 % (0.0-4.0); HEMATOCRIT 36.7 % (35.0-46.0); HEMOGLOBIN 12.4 GM/DL (11.6-15.3); LYMPH % 19.3 % (9.0-44.0); LYMPHOCYTE # 1.9 TH/MM3 (1.0-4.8); MEAN CELL VOLUME 90.2 FL (80.0-100.0); MEAN CORPUSCULAR HEMOGLOBIN 30.4 PG (27.0-34.0); MEAN CORPUSCULAR HGB CONC 33.7 % (32.0-36.0); MEAN PLATELET VOLUME 9.9 FL (7.0-11.0); MONO % 3.5 % (0.0-8.0); MONOCYTE # 0.3 TH/MM3 (0-0.9); NEUT % 76.2 % (16.0-70.0); PLATELET COUNT 340 TH/MM3 (150-450); RED BLOOD COUNT 4.07 MIL/MM3 (4.00-5.30); RED CELL DISTRIBUTION WIDTH 16.6 % (11.6-17.2)
== END ==
LOC: PLAB 07:28
PROVIDERS: ATTEND Internal Medicine Gastroenterology
DX: D64.9 Anemia, unspecified (principal)
CPT/HCPCS: 36415; 80048; 85025